=== PATIENT | male | born 1955 | race Caucasian/White ===

== ENCOUNTER → 2021-05-11 01:15 | Outpatient (CLI) | payer MEDICARE, SELFPAY ==
[2021-05-11 20:43] LABS: SARS-CoV-2 RNA PCR Positive
== END ==
PROVIDERS: PCP Internal Medicine; Visit Provider Internal Medicine
DX: U07.1 COVID-19 (principal); R68.89 Other general symptoms and signs
CPT/HCPCS: C9803; U0003; U0005

== ENCOUNTER 2021-08-09 07:32 | Outpatient (CLI) | payer MEDICARE, SELFPAY ==
--- NOTE | ~2021-08-09 | CT_ITS ---
EXAMINATION: CT lung screening EXAM DATE: 08/09/2021 07:47 INDICATION: Z87.891 - Personal history of nicotine dependence. TECHNIQUE: Spiral low dose CT of the chest without contrast. Axial, coronal and sagittal images were reviewed. The dose-length product (DLP) for this examination was 101.49 mGy-cm. The exposure was t ailored according to patient size (auto mA exposure control), and iterative reconstruction (ASIR) was used as additional dose reduction technique. Comparison is made to prior examination from 10/29/2018, 10/14/2016. FINDINGS: Left apical calcified granulomas are unchanged. Tracheobronchial tree is patent. There is no mediastinal, hilar or axillary lymphadenopathy. There is moderate emphysema. There are no pleur al or pericardial effusions. There is no pneumothorax. Heart normal in size. There is moderate coronary arterial calcification, arterial sclerosis. Again there is diffuse esophageal wall thickening as has been demonstrated for years, likely chronic esophagitis. Also left mid rib fracture laterally. IMPRESSION: 1. Lung-RADS category 1S, negative (<1%chance of malignancy); recommend continued LDCT screening in 1 year. 2. Chronic diffuse esophageal wall thickening. Are there any symptoms? Reviewed, dictated and finalized at location B. IMPRESSION: 1. Lung-RADS category 1S, negative (<1%chance of malignancy); recommend contin ued LDCT screening in 1 year. 2. Chronic diffuse esophageal wall thickening. Are there any symptoms?
--- NOTE | ~2021-08-09 | US_ITS ---
EXAMINATION: US aorta [facility] DATE: 08/09/2021 08:03 INDICATION: Abdominal aortic aneurysm screening with risk factors of smoking. Diabetes. TECHNIQUE: Grayscale, color Doppler, and pulsed Doppler images of the aorta and common iliac arteries were obtained. COMPARISON: None. FINDINGS: The proximal aorta measures 2.7 cm. The mid aorta measures 2.2 cm. The distal aorta measures 1.8 cm. The right common iliac artery measures 9 mm. The left common iliac artery measures 9 mm. IMPRESSION: 1. Normal caliber abdominal aorta. Reviewed, dictated and finalized at location A.
== END 2021-08-09 07:33 | disposition home or self-care (01) ==
LOC: ANHIMG 07:35
PROVIDERS: PCP Internal Medicine; Visit Provider Internal Medicine
DX: Z12.2 Encounter for screening for malignant neoplasm of respiratory organs (principal); Z87.891 Personal history of nicotine dependence; Z13.6 Encounter for screening for cardiovascular disorders
CPT/HCPCS: 71271; 76706

== ENCOUNTER 2021-08-21 09:20 | Outpatient (CLI) | payer MEDICARE, SELFPAY ==
--- NOTE | 2021-08-21 09:39 | ECG_ITS ---
Measurements Intervals [place] Rate: 86 P: -35 ME: 170 QRS: 37 QRSD: 82 T: 70 QT: 357 QTc: 429 Interpretive Statements SINUS RHYTHM SEPTAL MYOCARDIAL INFARCTION , PROBABLY OLD Electronically Signed On 08-21-2021 9:58:49 CDT by Cedric Lin M.D.
== END 2021-08-21 09:21 | disposition home or self-care (01) ==
PROVIDERS: PCP Internal Medicine; Visit Provider Internal Medicine
DX: I25.2 Old myocardial infarction (principal); I10 Essential (primary) hypertension
CPT/HCPCS: 93005

== ENCOUNTER 2021-08-22 12:34 | Outpatient (CLI) | payer MEDICARE, SELFPAY ==
--- NOTE | 2021-08-22 15:27 | WPDPFTINT ---
PFT Procedure Performed PFT Procedure Performed Spirometry with Pre/Post Bronchodilator Plethysmography (Lung Vol) Diffusing Cap (DLCO) Flow Vol Loop PFT Interpretation This is a pulmonary function test with pre and post-bronchodilator spirometry, plethysmography and diffusing capacity. The test was performed and results interpreted in accordance with the 2019 and 2005 ATS/ERS Task Force guidelines respectively using the Global Lung Function Initiative-2012 reference equations. Patient demonstrated good effort and cooperation. Reproducibility criteria were met. The quality of the pre bronchodilator spirometry maneuver was Grade A and post bronchodilator spirometry maneuver was Grade A. Findings: Spirometry: There is decreased maximal expiratory airflow at low lung volumes with a concave expiratory flow tracing. The contour the inspiratory flow tracing is normal. The pre bronchodilator FVC is 2.88 L, 68% predicted. The pre bronchodilator FEV1 is 1.84 L, 57% predicted. The pre bronchodilator FEV1: FVC ratio 64%. The post bronchodilator FVC is 3.58 L, representing a 24% increase. The post bronchodilator FEV1 is 2.18 L, representing a 19% increase. The post bronchodilator FEV1: FVC ratio is 61%. Plethysmography: The total lung capacity is 7.76 L, 114% predicted. The functional residual capacity is 5.16 L, 145% predicted. The residual volume is 4.70 L, 204% predicted. Diffusing capacity: The diffusion capacity unadjusted for hemoglobin and carboxyhemoglobin is 17.7, 67% predicted. The diffusing capacity adjusted for alveolar volume is 3.43, 83% predicted. Impression: There is a moderately severe obstructive abnormality with significant improvement after inhaling a single dose of albuterol. The increase in residual volume is consistent with air trapping from an obstructive abnormality. Hyperinflation is present is demonstrated by the increase in functional residual capacity and is consistent with an obstructive abnormality. The diffusing capacity unadjusted for hemoglobin and carboxyhemoglobin is mildly decreased and normalizes when adjusted for alveolar volume. There are no prior studies for comparison
== END 2021-08-22 12:35 | disposition home or self-care (01) ==
LOC: ANHPFT 12:35
PROVIDERS: PCP Internal Medicine; Visit Provider Internal Medicine
DX: J44.9 Chronic obstructive pulmonary disease, unspecified (principal); R94.2 Abnormal results of pulmonary function studies
CPT/HCPCS: 94060; 94726; 94729

== ENCOUNTER 2021-08-30 08:01 | Outpatient (CLI) | payer MEDICARE, SELFPAY ==
--- NOTE | ~2021-08-30 | US_ITS ---
EXAMINATION: US arterial ankle brachial ind DATE: 08/30/2021 09:16 INDICATION: Peripheral vascular disease. TECHNIQUE: Segmental pressures and plethysmographic and Doppler waveforms of the brachial and lower e xtremity arteries were obtained. COMPARISON: None. FINDINGS: Right and left brachial artery pressures of 117 mm Hg and 126 mm Hg, respectively, are concordant (no rmal difference <= 30 mmHg). The right ankle-brachial index (DARREL) is 0.95 (normal >= 0.9-1.0). The right great toe-brachial index (TBI) is 0.60 (normal >= 0.65). Arterial Doppler waveforms are biphasic with brisk systolic upstrokes at both right posterior tibial and dorsalis pedis arteries. The left DARREL is 1.01. The left TBI is 0.79. Arterial Doppler waveforms are biphasic with brisk systol ic upstrokes at both left posterior tibial and dorsalis pedis arteries. IMPRESSION: 1. Mild arterial occlusive disease to the right lower limb with borderline right DARREL and moderately d ecreased right TBI. 2. No significant arterial occlusive disease to the left lower limb with normal left DARREL and TBI. Reviewed, dictated and finalized at location A. IMPRESSION: 1. Mild arterial occlusive disease to the right lower limb with borderline righ t DARREL and moderately decreased right TBI. 2. No significant arterial occlusive disease to the left lower limb with normal left DARREL and TBI.
== END 2021-08-30 08:02 | disposition home or self-care (01) ==
PROVIDERS: PCP Internal Medicine; Visit Provider Internal Medicine
DX: I70.201 Unspecified atherosclerosis of native arteries of extremities, right leg (principal)
CPT/HCPCS: 93922

== ENCOUNTER 2021-09-24 01:34 | Day surgery (SDC) | payer MEDICARE, SELFPAY ==
[2021-08-16 15:44] VITALS: BMI 27.3
--- NOTE | 2021-09-11 13:54 | PC.NURSE ---
Spoke with pt regarding rescheduled EGD & colonoscopy. Updated pt with new date/arrival time/procedure time. Pt verbalized understanding. Updated pt's home medication list. Confirmed no changes to health history. Pt instructed re updated instructions re colon prep. Pt verbalized understanding.
[2021-09-24 10:13] VITALS: BP 118/79; PULSE 95; RESP 17; TEMP 36.6; O2SAT 100; BMI 25.7
--- NOTE | 2021-09-24 10:31 | WPDGICN ---
Assessment and Plan Assessment and plan (1) Achalasia: Code(s): K22.0 - Achalasia of cardia Status: Acute Assessment and Plan: Patient has a history of achalasia. He is status post myotomy in 2019. Currently doing well. Follow-up EGD today. Because of abnormal CT scan. (2) Esophageal thickening: Code(s): K22.89 - Other specified disease of esophagus Status: Acute Assessment and Plan: CT scan suggests thickening of the esophagus. Likely related to prior lower esophageal sphincter myotomy. Further recommendations will be given after evaluation by EGD. (3) Encounter for screening colonoscopy: Code(s): Z12.11 - Encounter for screening for malignant neoplasm of colon Status: Acute Assessment and Plan: Patient presents today for screening colonoscopy. Appears to be at average risk for colon polyps. Further recommendations will be given after colonoscopy. GI Consult Note Consult date/time: 09/24/21 10:31 HPI: Edward Carnes is a 66 year old male Presents for screening colonoscopy And EGD.. Patient's weight appetite and bowel movements are good. He denies abdominal pain. Has had no bleeding. He presents today for neoplasia screening colonoscopy. Patient has a past medical history of achalasia. In 2019 had duodenal ulcers. Was found to have achalasia and has subsequently undergone myotomy by an endoscopic procedure at [facility] in [place]. Currently he is eating well with no vomiting and tolerating diet well. Recent CT scan of the abdomen was performed suggesting thickening of the distal esophagus and for this reason follow-up EGD is advised this time. Patient denies any weight loss, no vomiting. No bleeding. We his history is noncontributory. Review of Systems Review of Systems: All systems reviewed & are unremarkable except as noted in HPI and below [facility] Past Medical History Medical History (Updated 08/21/21 @ 08:43 by Wilfredo Luque MD) Abnormal EKG Achalasia Acute hepatitis C without hepatic coma Anxiety Body mass index [BMI] 28.0-28.9, adult (02/09/19) Chronic obstructive pulmonary disease Colon cancer screening Elevated BP without diagnosis of hypertension Encounter for routine adult health examination without abnormal findings Gastric ulcer, acute with hemorrhage, perforation, and obstruction Gastroesophageal reflux disease without esophagitis Hx of absence seizures Hx of hepatitis C Hypothyroidism (acquired) IFG (impaired fasting glucose) 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 Major depressive disorder, recurrent, unspecified Mixed hyperlipidemia Personal history of nicotine dependence Poor dentition Prostate cancer screening PTSD (post-traumatic stress disorder) Retroperitoneal abscess Rib pain on left side Family History Family History Mother Family history of chronic obstructive pulmonary disease Father Acute myocardial infarction Family history of primary malignant neoplasm of liver Other Family history of cardiovascular disease Social History Social History Smoking status: Former smoker Tobacco type: cigarettes Second hand tobacco smoke exposure: No Smoking end date: 05/12/04 Alcohol intake: never Substance use: current Substance use type: marijuana Other substance usage details: Daily Living arrangements: with family Spiritual care concerns: No Meds Home Medications and Allergies Home Medications Medication Instructions Recorded Confirmed Type aripiprazole 20 mg tablet 20 mg PO DAILY 04/27/19 09/24/21 History gabapentin 300 mg capsule See Rx Instructions PO DAILY 04/27/19 09/24/21 History lorazepam 2 mg tablet 2 mg PO BID PRN 04/27/19 09/24/21 History multivitamin 1 tablet PO DAILY 04/27/19 09/24/21 History nortriptyline 25 mg capsule 75 mg PO DAILY 04/27/19 09/24/21 History omeprazole 40 m
[2021-09-24] MEDS: LACTATED RINGERS 1,000 ML 150 ML IV CONT (10:36)
--- NOTE | 2021-09-24 10:49 | WPDANESEPPF ---
Anes - Initial Pre Proc Eval Procedure: Operation Date: 09/24/21 11:00 Proposed Procedures p Esophagogastroduodenoscopy & Screening Colonoscopy - Reddy Katz MD Date/Time: 09/24/21 10:49 Surgeon: Reddy Katz MD Pre Op Diagnosis: neoplasm screening, abnormal CAT scan Patient Data Age: 66 Gender: M Height: 1.75 m Weight: 79.2 kg Last Vital Signs Temp 97.8 F 09/24/21 10:13 Pulse 95 09/24/21 10:13 Resp 17 09/24/21 10:13 BP 118/79 09/24/21 10:13 Pulse Ox 100 09/24/21 10:13 Allergies Allergy/AdvReac Type Severity Reaction Status Date / Time No Known Allergies Allergy Verified 09/24/21 10:11 Home Medications Medication Instructions Recorded Confirmed Type aripiprazole 20 mg tablet 20 mg PO DAILY 04/27/19 09/24/21 History gabapentin 300 mg capsule See Rx Instructions PO DAILY 04/27/19 09/24/21 History lorazepam 2 mg tablet 2 mg PO BID PRN 04/27/19 09/24/21 History multivitamin 1 tablet PO DAILY 04/27/19 09/24/21 History nortriptyline 25 mg capsule 75 mg PO DAILY 04/27/19 09/24/21 History omeprazole 40 mg capsule,delayed 40 mg PO DAILY #90 cap 08/21/21 09/24/21 Rx release rosuvastatin 5 mg tablet 5 mg PO DAILY #30 tablet 08/21/21 09/24/21 Rx Patient hx anesthesia problems: none Family hx anesthesia problems: none Results Review: All pre-operative results and documents have been reviewed as part of the pre-operative evaluation. [facility] Past Medical History Medical History (Updated 08/21/21 @ 08:43 by Wilfredo Luque MD) Abnormal EKG Achalasia Acute hepatitis C without hepatic coma Anxiety Body mass index [BMI] 28.0-28.9, adult (02/09/19) Chronic obstructive pulmonary disease Colon cancer screening Elevated BP without diagnosis of hypertension Encounter for routine adult health examination without abnormal findings Gastric ulcer, acute with hemorrhage, perforation, and obstruction Gastroesophageal reflux disease without esophagitis Hx of absence seizures Hx of hepatitis C Hypothyroidism (acquired) IFG (impaired fasting glucose) longterm use of drug Major depressive disorder, recurrent, unspecified Mixed hyperlipidemia Personal history of nicotine dependence Poor dentition Prostate cancer screening PTSD (post-traumatic stress disorder) Retroperitoneal abscess Rib pain on left side Family History Family History Mother Family history of chronic obstructive pulmonary disease Father Acute myocardial infarction Family history of primary malignant neoplasm of liver Other Family history of cardiovascular disease Social History Social History Smoking status: Former smoker Tobacco type: cigarettes Second hand tobacco smoke exposure: No Smoking end date: 05/12/04 Alcohol intake: never Substance use: current Substance use type: marijuana Other substance usage details: Daily Living arrangements: with family Spiritual care concerns: No Anes - Eval Final PreProcedure Day of Procedure 09/24/21 10:49 Patient weight: normal Heart: regular rate and rhythm Lungs: clear to auscultation Airway: Mallampati scale class II Neurological: alert and oriented Last oral intake: >/= 8 hours ASA classification: III Emergent: no Anesthetic plan: proceed Anesthesia type and monitoring: general GIVS and standard monitoring Results Review: All pre-operative results and documents have been reviewed as part of the pre-operative evaluation. Informed Consent: The patient's anesthetic plan and its attendant risks and benefits were discussed with the patient/family/POA. Questions were solicited and answers provided to the satisfaction of the patient/family/POA.
[2021-09-24 11:37] VITALS: BP 82/53; PULSE 94; RESP 28; O2SAT 92
[2021-09-24 11:47] VITALS: BP 118/75; PULSE 87; RESP 19; O2SAT 94
[2021-09-24 11:57] VITALS: BP 115/87; PULSE 86; RESP 20; O2SAT 97
== END 2021-09-24 12:08 | disposition home or self-care (01) ==
PROVIDERS: PCP Internal Medicine; Visit Provider Internal Medicine Gastroenterology
PROC: 0DJ08ZZ Inspection of Upper Intestinal Tract, Via Natural or Artificial Opening Endoscopic (ICD-10-PCS; CPT 43235; principal; 2021-09-24 11:00)
DX: Z12.11 Encounter for screening for malignant neoplasm of colon (principal); D12.4 Benign neoplasm of descending colon; K64.8 Other hemorrhoids; K57.30 Diverticulosis of large intestine without perforation or abscess without bleeding; K21.00 Gastro-esophageal reflux disease with esophagitis, without bleeding; Z87.19 Personal history of other diseases of the digestive system; E03.9 Hypothyroidism, unspecified; E78.2 Mixed hyperlipidemia; F33.9 Major depressive disorder, recurrent, unspecified; F41.9 Anxiety disorder, unspecified; Z86.19 Personal history of other infectious and parasitic diseases; Z87.11 Personal history of peptic ulcer disease; Z87.891 Personal history of nicotine dependence; F12.90 Cannabis use, unspecified, uncomplicated
CPT/HCPCS: 45385; 43235; 88305; J2704; J7120

== ENCOUNTER 2022-03-13 07:43 | Outpatient (CLI) | payer MEDICARE, SELFPAY ==
[2022-03-13 08:25] LABS: Alanine Aminotransferase 23 U/L (6-50); Albumin Level 4.8 g/dL (3.5-5.1); Alkaline Phosphatase 62 U/L (38-126); Anion Gap 11 mmol/L (8-16); Aspartate Amino Transferase 30 U/L (17-59); Bilirubin,Total 0.8 mg/dL (0.2-1.3); Blood Urea Nitrogen 9 mg/dL (9-20); Calcium 9.2 mg/dL (8.4-10.2); Carbon Dioxide 30 mmol/L (22-30); Chloride 99 mmol/L (98-107); Cholesterol 150 mg/dL (0-200); Estimated Glomerular Filt Rate > 60; Glucose 113 mg/dL (65-110); HDL Direct 34 mg/dL; Hemoglobin A1C 6.3 % (<5.7); Sodium 140 mmol/L (137-145); Triglycerides 154 mg/dL (<150)
[2022-03-13 08:36] LABS: LDL Cholesterol Direct 93 mg/dL
[2022-03-13 08:57] LABS: Prostate Specific Antigen 0.8 ng/mL (< OR = 4.0)
== END 2022-03-13 07:44 | disposition home or self-care (01) ==
LOC: ANHLAB 07:47
PROVIDERS: PCP Internal Medicine; Visit Provider Nurse Practitioner
DX: R73.03 Prediabetes (principal); Z12.5 Encounter for screening for malignant neoplasm of prostate; E78.5 Hyperlipidemia, unspecified
CPT/HCPCS: 36415; 80053; 80061; 83036; 84153; G0103

== ENCOUNTER 2022-09-05 10:00 | Outpatient (CLI) | payer MEDICARE, SELFPAY ==
--- NOTE | ~2022-09-05 | XR_ITS ---
Right Knee Technique: AP, lateral, and sunrise views were obtained. Clinical History: Pain Findings: No fracture or dislocation is seen. Osseous alignment is anatomic. Minimal patellar spurrin g noted. Soft tissues are unremarkable. No joint effusion is seen. Impression: Minimal patellar spurring. Reviewed, dictated and finalized at location . Impression: Minimal patellar spurring.
[2022-09-05 10:53] LABS: Alanine Aminotransferase 27 U/L (6-50); Alkaline Phosphatase 66 U/L (38-126); Anion Gap 5 mmol/L (8-16); Aspartate Amino Transferase 32 U/L (17-59); Bilirubin,Total 0.8 mg/dL (0.2-1.3); Blood Urea Nitrogen 10 mg/dL (9-20); Carbon Dioxide 31 mmol/L (22-30); Chloride 101 mmol/L (98-107); Cholesterol 147 mg/dL (0-200); Estimated Glomerular Filt Rate > 60; Glucose 103 mg/dL (65-110); HDL Direct 38 mg/dL; Potassium 4.6 mmol/L (3.4-5.0); Sodium 137 mmol/L (137-145); Triglycerides 199 mg/dL (<150)
[2022-09-05 11:03] LABS: LDL Cholesterol Direct 91 mg/dL
[2022-09-05 11:18] LABS: Hemoglobin A1C 5.9 % (<5.7)
== END 2022-09-05 10:01 | disposition home or self-care (01) ==
LOC: ANHLAB 10:04
PROVIDERS: PCP Family Medicine; Visit Provider Nurse Practitioner
DX: E78.5 Hyperlipidemia, unspecified (principal); R73.03 Prediabetes; M25.561 Pain in right knee; M76.51 Patellar tendinitis, right knee
CPT/HCPCS: 36415; 73562; 80053; 80061; 83036

== ENCOUNTER 2023-02-26 07:36 | Outpatient (CLI) | payer MEDICARE, SELFPAY ==
[2023-02-26 08:38] LABS: Hematocrit 49.1 % (42.0-52.0); Hemoglobin 15.4 g/dL (14.0-18.0); Mean Corpuscular HGB Conc 31.4 g/dl (32-36); Mean Corpuscular Hemoglobin 27.5 pg (26-34); Mean Corpuscular Volume 87.8 fl (80-100); Platelet Count Result 300 k/mm3 (150-375); Red Blood Count 5.59 M/mm3 (4.6-6.20); Red Cell Distribution Width 13.6 % (11.5-14.5); White Blood Count 9.1 K/mm3 (4.5-10.0)
[2023-02-26 08:42] LABS: Creatinine Urine 18.9 mg/dL
[2023-02-26 08:47] LABS: MALB Creatinine Ratio 83.1 mg/g (0-30); Microalbumin Urine Random 15.7 mg/L (0-16.7)
[2023-02-26 08:49] LABS: Alanine Aminotransferase 38 U/L (6-50); Albumin Level 5.1 g/dL (3.5-5.1); Alkaline Phosphatase 54 U/L (38-126); Anion Gap 8 mmol/L (8-16); Aspartate Amino Transferase 38 U/L (17-59); Bilirubin,Total 0.9 mg/dL (0.2-1.3); Blood Urea Nitrogen 10 mg/dL (9-20); Calcium 9.8 mg/dL (8.4-10.2); Carbon Dioxide 31 mmol/L (22-30); Chloride 100 mmol/L (98-107); Estimated Glomerular Filt Rate > 60; Glucose 111 mg/dL (65-110); Potassium 5.2 mmol/L (3.4-5.0); Sodium 139 mmol/L (137-145)
[2023-02-26 08:50] LABS: Hemoglobin A1C 5.9 % (<5.7)
== END 2023-02-26 07:37 | disposition home or self-care (01) ==
LOC: ANHLAB 07:37
PROVIDERS: PCP Family Medicine; Visit Provider Family Medicine
DX: E11.9 Type 2 diabetes mellitus without complications (principal); F43.10 Post-traumatic stress disorder, unspecified; I73.9 Peripheral vascular disease, unspecified; J44.9 Chronic obstructive pulmonary disease, unspecified
CPT/HCPCS: 36415; 80053; 82043; 83036; 85027

== ENCOUNTER 2023-03-04 09:32 | Outpatient (CLI) | payer MEDICARE, SELFPAY ==
--- NOTE | ~2023-03-04 | CT_ITS ---
CT Scan of the Chest without Contrast: Clinical Indication: Lung cancer screening, personal history of nicotine dependence Technique: Contiguous sections were acquired throughout the chest without intravenous contrast. Dose reduction technique was used on this scan by utilizing automated exposure control and iterative recon struction technique. The dose-length product (DLP) was 135.87 mGy-cm. COMPARISON: 08/09/2021 Findings: There is no evidence of any significant mediastinal, hilar or axillary lymphadenopathy. There are ath erosclerotic calcifications of the aorta and coronary arteries. Diffuse esophageal wall thickening is similar to prior exam. There is no evidence of pleural or pericardial effusion. Left apical calcified bilateral granulomas are noted. Mild to moderate emphysema probably present. Images through the upper abdomen reveal no abnormalities. Impression: Unenhanced 2: Benign appearance. 12 month follow-up screen CT advised. Diffuse esophageal wall thickening is similar to prior exam. Correlate for chronic esophagitis. Reviewed, dictated and finalized at [facility]. Impression: Unenhanced 2: Benign appearance. 12 month follow-up screen CT advised. Diffuse esophageal wall thickening is similar to prior exam. Correlate for surg nurse johana esophagitis.
== END 2023-03-04 09:33 | disposition home or self-care (01) ==
PROVIDERS: PCP Family Medicine; Visit Provider Family Medicine
DX: Z12.2 Encounter for screening for malignant neoplasm of respiratory organs (principal); R91.8 Other nonspecific abnormal finding of lung field; Z87.891 Personal history of nicotine dependence
CPT/HCPCS: 71271

== ENCOUNTER 2023-09-04 10:06 | Outpatient (CLI) | payer MEDICARE, SELFPAY ==
--- NOTE | ~2023-09-04 | XR_ITS ---
XR chest 2V 09/04/2023 11:19 Indication: Dyspnea Procedure: 2 view chest Comparison: 02/08/2016 Findings: Heart size normal. Mild interstitial edema. No pleural effusion or pneumothorax. No acute o sseous abnormality. Impression: 1: Mild interstitial edema. Reviewed, dictated and finalized at location B. Impression: 1: Mild interstitial edema.
--- NOTE | 2023-09-04 10:33 | ECG_ITS ---
SEE SCANNED COPY FOR CONFIRMED REPORT MTDD
[2023-09-04 10:41] LABS: Hematocrit 41.2 % (42.0-52.0); Hemoglobin 12.9 g/dL (14.0-18.0); Mean Corpuscular HGB Conc 31.3 g/dl (32-36); Mean Corpuscular Volume 89.6 fl (80-100); Mean Platelet Volume 9.8 fl (7.4-10.4); Platelet Count Result 260 k/mm3 (150-375); Red Cell Distribution Width 14.5 % (11.5-14.5); White Blood Count 8.2 K/mm3 (4.5-10.0)
[2023-09-04 10:58] LABS: Alanine Aminotransferase 26 U/L (6-50); Alkaline Phosphatase 60 U/L (38-126); Anion Gap 7 mmol/L (4-12); Aspartate Amino Transferase 32 U/L (17-59); Bilirubin,Total 1.3 mg/dL (0.2-1.3); Blood Urea Nitrogen 13 mg/dL (9-20); Calcium 9.7 mg/dL (8.4-10.2); Carbon Dioxide 30 mmol/L (22-30); Chloride 104 mmol/L (98-107); Cholesterol 134 mg/dL (0-200); Estimated Glomerular Filt Rate > 60; Glucose 128 mg/dL (65-110); HDL Direct 35 mg/dL; Potassium 4.6 mmol/L (3.4-5.0); Sodium 141 mmol/L (137-145); Triglycerides 183 mg/dL (<150)
[2023-09-04 11:09] LABS: LDL Cholesterol Direct 88 mg/dL
[2023-09-04 11:29] LABS: Prostate Specific Antigen 0.6 ng/mL (< OR = 4.0)
[2023-09-04 11:31] LABS: Hemoglobin A1C 5.7 % (<5.7)
== END 2023-09-04 10:07 | disposition home or self-care (01) ==
LOC: ANHLAB 10:13
PROVIDERS: PCP Family Medicine; Visit Provider Family Medicine
DX: R06.00 Dyspnea, unspecified (principal); Z12.5 Encounter for screening for malignant neoplasm of prostate; K22.89 Other specified disease of esophagus; J44.9 Chronic obstructive pulmonary disease, unspecified; F43.10 Post-traumatic stress disorder, unspecified; E78.2 Mixed hyperlipidemia; E66.3 Overweight; E11.9 Type 2 diabetes mellitus without complications; R00.9 Unspecified abnormalities of heart beat; R60.9 Edema, unspecified; R00.0 Tachycardia, unspecified; R94.31 Abnormal electrocardiogram [ECG] [EKG]
CPT/HCPCS: 36415; 71046; 80053; 80061; 83036; 84153; 84443; 85027; 93005; G0103

== ENCOUNTER 2023-09-18 08:49 | Outpatient (CLI) | payer MEDICARE, SELFPAY ==
--- NOTE | ~2023-09-18 | XR_ITS ---
Clinical Indication: Edema PA and lateral views of the chest: Comparison: 09/04/2023 Findings: The lungs are clear, without evidence of focal consolidation or pleural effusion. Cardiome diastinal silhouette is within normal limits. Bones and soft tissues are unremarkable. Impression: Normal chest. Reviewed, dictated and finalized at location . Impression: Normal chest.
[2023-09-18 09:39] LABS: Mean Corpuscular Volume 90.5 fl (80-100); Mean Platelet Volume 10.2 fl (7.4-10.4); Platelet Count Result 256 k/mm3 (150-375); Red Blood Count 4.64 M/mm3 (4.6-6.20); Red Cell Distribution Width 14.4 % (11.5-14.5); White Blood Count 9.2 K/mm3 (4.5-10.0)
[2023-09-18 09:53] LABS: Iron 44 ug/dL (49-181)
[2023-09-18 09:57] LABS: NT Pro B Type Natriuretic Pept 3990 pg/mL (19.9-100)
[2023-09-18 10:05] LABS: Percent Iron Saturation 10 % (20-50)
== END 2023-09-18 08:50 | disposition home or self-care (01) ==
LOC: ANHLAB 08:51
PROVIDERS: PCP Family Medicine; Visit Provider Family Medicine
DX: R06.00 Dyspnea, unspecified (principal); J44.9 Chronic obstructive pulmonary disease, unspecified; D64.9 Anemia, unspecified; R60.9 Edema, unspecified; E11.9 Type 2 diabetes mellitus without complications
CPT/HCPCS: 36415; 71046; 82607; 82728; 83540; 83550; 83880; 85027

== ENCOUNTER 2023-10-07 13:04 | Inpatient (IN) | payer MEDICARE, SELFPAY ==
[2023-10-07] VITALS (11 sets, daily range): BP systolic 110–133; BP diastolic 75–93; PULSE 106–155; RESP 17–24; TEMP 36.5; O2SAT 84–98; BMI 30.8
--- NOTE | ~2023-10-07 | US_ITS ---
EXAMINATION: US venous doppler [facility] DATE: 10/09/2023 14:47 INDICATION: Lower limb edema. TECHNIQUE: Grayscale ultrasound images without and with compression and Doppler ultrasound images of the bilateral lower extremity veins were obtained. COMPARISON: None. FINDINGS: The visualized portions of right common femoral vein, profunda (deep) femoral vein, femoral vein, pop liteal vein, peroneal veins, posterior tibial veins, and greater saphenous vein outflow are patent. The visualized portions of left common femoral vein, profunda femoral vein, femoral vein, popliteal v ein, peroneal veins, posterior tibial veins, and greater saphenous vein outflow are patent. IMPRESSION: 1. No deep venous thrombosis. Reviewed, dictated and finalized at location A.
--- NOTE | ~2023-10-07 | US_ITS ---
EXAMINATION: US abdomen limited DATE: 10/08/2023 08:39 INDICATION: Abnormal liver function tests. TECHNIQUE: Multiple grayscale and Doppler ultrasound images of the abdomen were obtained. COMPARISON: CT abdomen and pelvis 04/25/2016 FINDINGS: The visualized portions of the head, body, and tail of the pancreas are normal. The liver i s normal without focal lesion. No liver surface nodularity. There is antegrade flow in main portal ve in. The gallbladder is normal in size. No gallstones or gallbladder wall thickening. There is no sono graphic Rodriguez's sign. The common duct is normal and measures 4 mm. IMPRESSION: 1. No etiology for abnormal liver function tests. Reviewed, dictated and finalized at location A.
--- NOTE | ~2023-10-07 | NM_ITS ---
EXAMINATION: NM lung vent and perfusion DATE: 10/09/2023 15:34 INDICATION: Dyspnea. TECHNIQUE: 6.9 mCi Xenon-133 was given for ventilation images. 5.2 mCi Tc-99m MAA was administered in travenously for perfusion images. Scintigraphic images of the chest were obtained. COMPARISON: Chest single view 10/07/2023 FINDINGS: The ventilation images demonstrate low [id number] ratio. There is diffuse retention of radiotrac er in the lungs. Perfusion images show matched large defects in the lower lobes. IMPRESSION: 1. Low probability for pulmonary embolism. Reviewed, dictated and finalized at location A.
--- NOTE | ~2023-10-07 | XR_ITS ---
XR chest 1V portable 10/07/2023 13:47 Indication: Dyspnea and weakness Procedure: AP portable chest Comparison: Comparison to multiple prior studies sequentially, with oldest reviewed study dated 02/07. Findings: Cardiomegaly with mild interstitial edema. No pleural effusion or pneumothorax. No acute os seous abnormality. Impression: 1: Cardiomegaly with mild interstitial edema. Reviewed, dictated and finalized at location B. Impression: 1: Cardiomegaly with mild interstitial edema.
--- NOTE | ~2023-10-07 | CT_ITS ---
EXAMINATION: CT brain wo con DATE: 10/07/2023 14:03 INDICATION: Head injury. TECHNIQUE: Computed tomography (CT) of the head was performed without intravenous contrast. The mA wa s adjusted according to patient size. Iterative reconstruction technique was employed. The dose-lengt h product was 605.33 mGy-cm. COMPARISON: None FINDINGS: There is chronic encephalomalacia in right frontal and temporal lobes. There are scattered areas of low attenuation in the cerebral white matter. There is no intracranial hemorrhage, acute inf arction, or abnormal intracranial mass lesion. The ventricles are normal in size. The orbits are norm al. There is mild mucosal thickening in the ethmoid sinuses. The mastoid air cells are normal. There is left posterior scalp soft tissue swelling. IMPRESSION: 1. Chronic encephalomalacia in right frontal and temporal lobes. 2. Mild nonspecific cerebral white matter disease, which likely represents chronic small vessel ische joseph disease. Reviewed, dictated and finalized at location A. IMPRESSION: 1. Chronic encephalomalacia in right frontal and temporal lobes. 2. Mild nonspecific cerebral white matter disease, which likely represents systems lead johana small vessel ischemic disease.
--- NOTE | ~2023-10-07 | CT_ITS ---
EXAMINATION: CT facial bones wo con DATE: 10/07/2023 14:03 INDICATION: Left jaw pain. Fall. TECHNIQUE: Computed tomography (CT) of the facial bones and maxillofacial region was performed withou t intravenous contrast. Automated exposure control and iterative reconstruction technique were employ ed. The dose-length product was 605.33 mGy-cm. COMPARISON: None. FINDINGS: There is mild mucosal thickening in the paranasal sinuses. There is rightward deviation of the nasal septum. The mastoid air cells are normal. There is cerumen in right external auditory canal . There is severe cervical spondylosis. IMPRESSION: 1. No fracture. Reviewed, dictated and finalized at location A. IMPRESSION: 1. No fracture.
--- NOTE | ~2023-10-07 | NM_ITS ---
EXAMINATION: NM angel stress w perfusion DATE: 10/08/2023 13:00 INDICATION: Dyspnea on exertion. TECHNIQUE: Rest images were obtained following intravenous administration of 10.8 mCi Tc99m tetrofosm in (Myoview). The patient was infused intravenously with Lexiscan (regadenoson). Then, 34.8 mCi Tc99m tetrofosmin (Myoview) was administered intravenously, and supine and prone stress images were obtain ed. Data was reconstructed into short axis and horizontal and vertical long axis SPECT images. Gated SPECT images were also obtained. COMPARISON: Chest CT 03/04/2023 FINDINGS: There is a small, mild, fixed perfusion defect involving apical to mid inferior wall of lef t ventricle, consistent with infarct. No reversible component to suggest ischemia.. There is global hypokinesis.. Left ventricular ejection fraction measures 27%. IMPRESSION: 1. Small area of mild infarct involving apical to mid inferior wall of left ventricle. 2. Global hypokinesis with left ventricular ejection fraction measuring 27%. Reviewed, dictated and finalized at location A. IMPRESSION: 1. Small area of mild infarct involving apical to mid inferior wall of left micky tricle. 2. Global hypokinesis with left ventricular ejection fraction measuring 27%.
--- NOTE | 2023-10-07 13:24 | ECG_ITS ---
SEE SCANNED COPY FOR CONFIRMED REPORT MTDD
[2023-10-07 13:40] LABS: Basophils Absolute Auto 0.1 K/mm3 (0.0-0.1); Basophils Percent Auto 0.5 % (0.2-1.2); Eosinophils Absolute Auto 0.1 K/mm3 (0-0.3); Eosinophils Percent Auto 1.1 % (0-4.4); Hematocrit 41.1 % (42.0-52.0); Hemoglobin 12.5 g/dL (14.0-18.0); Immature Granulocyte Absolute 0.03 K/mm3 (0.00-0.031); Immature Granulocyte Percent A 0.3 % (0-0.5); Lymphocytes Absolute Auto 1.41 K/mm3 (0.9-3.2); Lymphocytes Percent Auto 13.6 % (18.3-44.2); Mean Corpuscular HGB Conc 30.4 g/dl (32-36); Mean Corpuscular Hemoglobin 26.7 pg (26-34); Mean Corpuscular Volume 87.6 fl (80-100); Mean Platelet Volume 9.2 fl (7.4-10.4); Monocytes Absolute Auto 1.3 K/mm3 (0.1-0.6); Neutrophils Absolute Auto 7.6 K/mm3 (1.3-6.7); Neutrophils Percent Auto 72.5 % (45.5-73.1); Nucleated Red Blood Cells Perc 0.4 % (0.0-0.2); Platelet Count Result 238 k/mm3 (150-375); Red Blood Count 4.69 M/mm3 (4.6-6.20); Red Cell Distribution Width 14.8 % (11.5-14.5); White Blood Count 10.4 K/mm3 (4.5-10.0)
--- NOTE | 2023-10-07 13:46 | ED.GENADULT ---
HPI - General Adult General Chief complaint: Shortness of Breath/Dyspnea Stated complaint: fall, low o2 from pcp Time Seen by Provider: 10/07/23 13:22 History of Present Illness HPI narrative: 68-year-old male presented to the emergency department for evaluation for a facial injury. Patient was going to see his primary care physician for some shortness of breath while walking out of his house he fell and injured his left jaw. Patient denies any other pain or injury. Patient denies last of consciousness. Patient does follow-up with dr acuña. patient states he is not supposed to be on a water pill. Related Data Home Medications Medication Instructions Recorded Confirmed lorazepam 2 mg tablet 2 mg PO BID PRN Anxiety 04/27/19 10/07/23 multivitamin 1 tablet PO DAILY 04/27/19 10/07/23 nortriptyline 25 mg capsule 75 mg PO DAILY 04/27/19 10/07/23 diclofenac sodium 75 mg 75 mg PO BID 10/07/23 10/07/23 tablet,delayed release Allergies Allergy/AdvReac Type Severity Reaction Status Date / Time No Known Allergies Allergy Verified 10/07/23 12:28 Review of Systems Review of Systems: All systems reviewed & are unremarkable except as noted in HPI and below PMF[facility] Past Medical History Medical History (Updated 10/07/23 @ 16:42 by Luis Osman MD) Abnormal EKG Achalasia Acute hepatitis C without hepatic coma Anxiety Body mass index [BMI] 28.0-28.9, adult (02/09/19) Chronic obstructive pulmonary disease Colon cancer screening Dyspnea Elevated BP without diagnosis of hypertension Encounter for routine adult health examination without abnormal findings Gastric ulcer, acute with hemorrhage, perforation, and obstruction Gastroesophageal reflux disease without esophagitis Hx of absence seizures Hx of hepatitis C Hypothyroidism (acquired) IFG (impaired fasting glucose) 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 Major depressive disorder, recurrent, unspecified Mixed hyperlipidemia Personal history of nicotine dependence Poor dentition Prostate cancer screening PTSD (post-traumatic stress disorder) Retroperitoneal abscess Rib pain on left side Family History Family History Mother Family history of chronic obstructive pulmonary disease Father Acute myocardial infarction Family history of primary malignant neoplasm of liver Other Family history of cardiovascular disease Social History Social History Smoking packs per day: 3 Smoking cigarettes per day: 60.0 Smoking status: Former smoker Second hand tobacco smoke exposure: No Additional smoking assessment comments: smokes marijuana Alcohol intake: former Substance use: current Substance use type: marijuana Other substance usage details: Daily Last use: 10/05/23 Do You Feel Safe in your Home?: Yes Lack of Transportation: YES Lack of Food: Never True Current Housing: I Have Housing Concerned About Future Housing: No Difficulty Paying Gas/Electric Bills: No Difficulty Paying for Meds: No Currently Unemployed: No Education: High School Diploma/GED Difficulty w/ Childcare or Family Care: No Living arrangements: with family Spiritual care concerns: No Exam Narrative: APPEARANCE: Well appearing, no pain, no distress, well-nourished. HEAD: normocephalic, Injury to left mandible EYES: PERRLA/EOMI, conjunctivae clear. NOSE: Normal no drainage EARS:TMS clear with good light reflex. THROAT: Pharynx clear, no exudate. NECK: Supple. No adenopathy, no masses. RESPIRATORY: Airway patent, respirations nonlabored. Clear to auscultation bilaterally, no rales, rhonchi, wheezing. CARDIOVASCULAR: Regular rate and rhythm without murmurs rubs or gallops. ABDOMINAL: Soft, nontender, nondistended, normal bowel sounds MUSCULOSKELETAL: Moves all extremities. Strength/ROM intact, No edema, No calf tenderness. NEURO: Alert. Cranial nerves II through
[2023-10-07 13:52] LABS: Alanine Aminotransferase 703 U/L (6-50); Albumin Level 4.4 g/dL (3.5-5.1); Alkaline Phosphatase 111 U/L (38-126); Anion Gap 8 mmol/L (4-12); Aspartate Amino Transferase 360 U/L (17-59); Bilirubin,Total 1.9 mg/dL (0.2-1.3); Blood Urea Nitrogen 32 mg/dL (9-20); Calcium 8.4 mg/dL (8.4-10.2); Carbon Dioxide 25 mmol/L (22-30); Chloride 104 mmol/L (98-107); Estimated CRCL calculation 66 ml/min; Estimated Glomerular Filt Rate > 60; Glucose 120 mg/dL (65-110); Potassium 4.3 mmol/L (3.4-5.0); Sodium 137 mmol/L (137-145)
[2023-10-07 14:01] LABS: NT Pro B Type Natriuretic Pept 5140 pg/mL (19.9-100); Troponin I < 0.012 ng/mL (0.000-0.034)
[2023-10-07 14:16] LABS: Influenza A QL RT-PCR Negative (Negative); Influenza B QL RT-PCR Negative (Negative); RSV RNA, RT-PCR Negative (Negative); SARS-CoV-2 RNA PCR Negative (Negative)
[2023-10-07] MEDS: FUROSEMIDE INJ 40 MG/4 ML VIAL IV PUSH ×2 (14:45→20:24)
--- NOTE | 2023-10-07 17:45 | ADMGEN ---
This patient, Edward Carnes, was admitted to [facility] Surg Room 319-01. Patient/family oriented to hospital policies and general routines including ID bracelet, bed and alarms, visiting hours, pain management, procedures, bathroom and other care routines, personal items, smoking policy, room service/diet, and visiting hours. Information on how to activate the Rapid Response Team has been discussed. Patient/Family are encouraged to report perceived risks to care and to ask questions if they do not understand what they are told or what they should do.
[2023-10-07 17:47] LABS: INR 1.4; Prothrombin Time 17.6 Seconds (11.1-14.7)
[2023-10-07 17:48] LABS: Partial Thromboplastin Time 40.9 Seconds (22.3-36.8)
--- NOTE | 2023-10-07 19:25 | PM.IMHP ---
H&P: HPI History of Present Illness Date/Time: 10/07/23 18:15 Chief Complaint: Fall, shortness of breath. Narrative: This is a 68-year-old male with history of hepatitis-C which was treated many years ago, gastroesophageal reflux disease, duodenal ulcer, achalasia, anemia, seizures, bipolar disorder, anxiety, and posttraumatic stress disorder who presented to the emergency department for evaluation of shortness of breath and a fall. The patient provides the following history. He gives a nearly 1 month history of progressive dyspnea on lesser and lesser exertion. He does not think it is related to his COPD as he has not been coughing or wheezing. At times he has some tightness in his chest when he is feeling particularly short of breath though he has not had exertional chest pain per se. On occasion he feels lightheaded with position changes. He was evaluated by his doctor several weeks ago for these findings and was referred to Dr. Thomas who ordered an echocardiogram and nuclear stress test which have yet to be performed. Today he had a follow-up appointment with his doctor at which time he was found to be hypoxic and was referred to the ER. On his way out of the office he tripped and fell on the left side of his face. There is no loss of consciousness in the fall and he reports that it was purely mechanical. In the ED complained of pain in the left jaw from the fall but had no other complaints. He denies syncope, near syncope, cold and flu symptoms, productive cough, orthopnea, paroxysmal nocturnal dyspnea, lower extremity edema, calf pain, palpitations, sensations of racing heart, nausea, vomiting, and sweats. In the ED: He was afebrile on arrival. SpO2 has been in the upper 90s on 3 L. he is in a sinus tachycardia. Labs were significant for a WBC count of 10.4, hemoglobin 12.5, BUN 32, creatinine 1.10, magnesium 2.2, total bilirubin 1.9, AST 360, ALT 703, alkaline phosphatase 111, proBNP 5140, troponin less than 0.012. He tested negative for influenza, RSV, and COVID. Brain CT showed chronic encephalomalacia in the right frontal and temporal lobes and nonspecific cerebral white matter disease but no other acute findings. Face CT did not show any signs of fracture. Chest x-ray showed cardiomegaly with mild interstitial edema. He was given 40 mg IV Lasix and is being admitted in this setting for further workup. Review of Systems Review of Systems: 12 systems were reviewed and are negative except for as per HPI. [facility] Past Medical History Medical History (Updated 10/07/23 @ 22:47 by Leticia Moscoso PA-C) Achalasia Anxiety Bipolar disorder Chronic obstructive pulmonary disease Gastric ulcer Gastroesophageal reflux disease without esophagitis Hepatitis C Status post Harvoni. Hypothyroidism Mixed hyperlipidemia Posttraumatic stress disorder Surgical History Surgical History (Updated 10/07/23 @ 22:36 by Leticia Moscoso PA-C) History of exploratory laparotomy (12/2015) With over-sewing of perforated duodenal ulcer complicated by a retroperitoneal abscess requiring washout and drainage. Family History Family History Mother Family history of chronic obstructive pulmonary disease Father Acute myocardial infarction Family history of primary malignant neoplasm of liver Other Family history of cardiovascular disease Social History Social History (Updated 10/07/23 @ 22:37 by Leticia Moscoso PA-C) Social History: Surrogate medical decision maker: Sylwia Deyvi, spouse. Code status: Full code. Smoking packs per day: 3 Smoking cigarettes per day: 60.0 Years smoked: 45 Smoking pack-years: 135.00 Smoking status: Former smoker Second hand tobacco smoke exposure: No Alcohol intake: former Substance use: current Substance use type: marijuana Other substance usage details: Daily Last use: 10/05/23 Do You Feel Safe in your Home?: Yes Lack of Trans
[2023-10-07] MEDS: IPRATROPIUM 0.5 MG/ALBUTEROL SULFATE 2.5 MG AMPUL.NEB 3 ML INHALATION (20:07)
--- NOTE | 2023-10-07 20:42 | ECG_ITS ---
SEE SCANNED COPY FOR CONFIRMED REPORT MTDD
[2023-10-07 20:55] LABS: Hepatitis B Surface Antigen Negative (Negative)
[2023-10-07 20:56] LABS: Magnesium 2.2 mg/dL (1.6-2.3)
[2023-10-07 21:00] LABS: HAV RESULT Negative (Negative); Hepatitis B Core IgM Result Negative (Negative)
[2023-10-07 21:13] LABS: Hepatitis C Virus Antibody Reactive (Negative)
[2023-10-07] MEDS: GABAPENTIN 300 MG CAPSULE 600 MG PO (22:30)
[2023-10-08] VITALS (16 sets, daily range): BP systolic 99–112; BP diastolic 68–80; PULSE 103–114; RESP 18–24; TEMP 36.1–37.6; O2SAT 91–98
--- NOTE | 2023-10-08 00:40 | P.PNCROSS_ITS ---
Event Note Event Note Event Note: Nursing staff can to notify me that the patient had yet another episode of nons ustained V-tach. When I looked at the patient's vitals the patient had pulse ox recorded at 84%. Patient that he runs between 84 and 92% at home. I think that the patient's hypoxia may be contributing to the frequency of his nonsustained V-tach. When nursing staff went to check on him while he was asleep his oxygen saturation was initially 72%. But the patient's oxygen saturation improved up to 90% when he was woken up. I have requested the patient be placed on a continuous pulse ox so he can see if there is a correlation between the timing of the patient's evidence of hypoxia and the patient's episodes of nonsustained V-tach. The patient probably going to need supplemental oxygen while sleeping.
[2023-10-08 06:19] LABS: Hematocrit 39.7 % (42.0-52.0); Hemoglobin 12.3 g/dL (14.0-18.0); Mean Corpuscular Hemoglobin 26.5 pg (26-34); Mean Corpuscular Volume 85.4 fl (80-100); Mean Platelet Volume 9.7 fl (7.4-10.4); Platelet Count Result 254 k/mm3 (150-375); Red Blood Count 4.65 M/mm3 (4.6-6.20); Red Cell Distribution Width 14.7 % (11.5-14.5); White Blood Count 10.1 K/mm3 (4.5-10.0)
[2023-10-08 06:30] LABS: Alanine Aminotransferase 542 U/L (6-50); Albumin Level 3.8 g/dL (3.5-5.1); Alkaline Phosphatase 107 U/L (38-126); Anion Gap 5 mmol/L (4-12); Aspartate Amino Transferase 234 U/L (17-59); Bilirubin,Total 2.5 mg/dL (0.2-1.3); Blood Urea Nitrogen 21 mg/dL (9-20); Calcium 8.1 mg/dL (8.4-10.2); Carbon Dioxide 30 mmol/L (22-30); Chloride 103 mmol/L (98-107); Estimated CRCL calculation 77 ml/min; Estimated Glomerular Filt Rate > 60; Glucose 101 mg/dL (65-110); Magnesium 1.8 mg/dL (1.6-2.3); Potassium 3.7 mmol/L (3.4-5.0); Sodium 138 mmol/L (137-145)
--- NOTE | 2023-10-08 07:54 | PM.IMPN ---
Progress Note: A&P Assessment and Plan (1) Hypoxia: Code(s): R09.02 - Hypoxemia Status: Acute Assessment and Plan: Patient reports increased shortness of breath. Found to be hypoxic at his doctors appointment and sent to the ER. - Currently 91% on RA - SpO2 dropped into the 70s while sleeping. May need supplemental O2 with sleep. (2) Acute HFrEF (heart failure with reduced ejection fraction): Code(s): I50.21 - Acute systolic (congestive) heart failure Status: Acute Assessment and Plan: Presented with increased shortness of breath. BNP 5140. Troponin WNL. EKG without acute ST changes. Chest XR Cardiomegaly with mild interstitial edema. Echo 10/08/23: LVEF 15-20% with mild pulmonary hypertension. Lexiscan 10/08/23: Small area of mild infarct involving apical to mid inferior wall of left ventricle.Global hypokinesis with left ventricular ejection fraction measuring 27%. Lasix 20 mg IV q12H Consult cardiology for further management, appreciate assistance and recommendations Monitor vital signs, I&Os, BUN/creatinine, daily weights, neuro status and patient is a fall risk Monitor serum electrolytes, Keep serum Potassium>4 and serum Magnesium>2 and CBC (3) Nonsustained ventricular tachycardia: Code(s): I47.29 - Other ventricular tachycardia Status: Acute Assessment and Plan: Patient continues to have asymptomatic nonsustained ventricular tachycardia overnight. Per cross cover note there is concern that patients hypoxia may be contributing to the vtach. - Continuous pulse ox - Tele monitor - Patient may need supplemental O2 while sleeping - Cardiology consulted, started on amiodarone 200 mg BID and metoprolol 12.5 mg daily. - Monitor QT interval due to amiodarone use (4) Fall: Code(s): W19.XXXA - Unspecified fall, initial encounter Status: Acute Assessment and Plan: Mechanical fall without loss of consciousness or significant injury. - Face CT: No fracture - Head CT: Chronic encephalomalacia in right frontal and temporal lobes. Mild nonspecific cerebral white matter disease, which likely represents chronic small vessel ischemic disease. - Chest XR: Cardiomegaly with mild interstitial edema - PT/ OT consulted (5) Transaminitis: Code(s): R74.01 - Elevation of levels of liver transaminase levels Status: Acute Assessment and Plan: Initial LFTs: total bilirubin 1.9, AST 360, ALT 703, alkaline phosphatase 111 - Completed Harvoni for treatment of hepatitis-C several years ago - Hepatitis panel negative - AST/ALT downtrending. Tot bili 2.5. - Abdominal US unremarkable - Holding rosuvastatin - Continue to monitor LFTs (6) Chronic obstructive pulmonary disease: Qualifiers: COPD type: unspecified COPD Qualified Code(s): J44.9 - Chronic obstructive pulmonary disease, unspecified Code(s): J44.9 - Chronic obstructive pulmonary disease, unspecified Status: Acute Assessment and Plan: Not in acute exacerbation. Time Spent With Patient Time with patient: 25 - 35 minutes Subjective Date/time seen: 10/08/23 07:54 Interval history: 68-year-old male with history of hepatitis-C which was treated many years ago, gastroesophageal reflux disease, duodenal ulcer, achalasia, anemia, seizures, bipolar disorder, anxiety, and posttraumatic stress disorder who presented to the emergency department for evaluation of shortness of breath and a fall. Patient is pleasant lying comfortably in bed. He continues to feel tired, but no longer endorses shortness of breath. He had several episodes of asymptomatic vtach over night. He was started on amiodarone and metoprolol this am by cardiology. He had an echo done which showed severely reduced EF 15-20%. Lexiscan revealed Small area of mild infarct involving apical to mid inferior wall of left ventricle and global hypokinesis with left ventricular ejection fraction measuring 27%. Sto
[2023-10-08] MEDS: PERFLUTREN LIPID MICROSPHERES 1.5 ML VIAL DILUTED TO 10 ML TOTAL VOLUME IV PUSH (08:00)
[2023-10-08] MEDS: IPRATROPIUM 0.5 MG/ALBUTEROL SULFATE 2.5 MG AMPUL.NEB 3 ML INHALATION ×3 (08:03→21:24)
--- NOTE | 2023-10-08 08:23 | EST_ITS ---
Patient Info Name: Edward Carnes Age: 68 years : 1955 Gender: Male Ht: 69 in Wt: 203 lbs BSA: 2.14 m2 HR: 114 bpm BP: 111 / 73 mmHg Heart Rhythm: Tachycardia Exam Date: 10/08/2023 12:02 PM Exam Location: Echo Lab Patient Status: Inpatient Admit Date: 10/07/2023 Staff Ordering Physician: Desmond Thomas DO Attending Provider: Zakia Rosas PA-C Exercise Technologist: Loren Galvez CT Exercise Physician: Desmond Thomas DO Exam Type: CA stress angel w NM Study Info Indications R06.09 - Other forms of dyspnea I47.1 - Supraventricular tachycardia A regadenoson stress test was performed. Summary 1. 1. Negative Lexiscan stress test for ischemic ST changes by ECG criteria. 2. 2. Stable hemodynamics throughout the test. 3. 3. Nuclear scan to follow and will be reported separately. Please correlate with it. 4. 4. Patient informed of the above results. Protocol: Lexiscan Stress ECG Details Stage: REST Duration (min): 0 min : 59 sec HR (bpm): 115 SBP (mmHg): 111 DBP (mmHg): 73 Stage: REST Duration (min): 7 min : 20 sec HR (bpm): 111 SBP (mmHg): 111 DBP (mmHg): 73 Stage: STAGE 1 Duration (min): 1 min : 0 sec HR (bpm): 111 SBP (mmHg): 114 DBP (mmHg): 76 Stage: RECOVERY Duration (min): 1 min : 0 sec HR (bpm): 114 SBP (mmHg): 114 DBP (mmHg): 76 Stage: RECOVERY Duration (min): 1 min : 20 sec HR (bpm): 114 SBP (mmHg): 114 DBP (mmHg): 76 Rest HR: 111 bpm Peak HR: 114 bpm Rest Sys BP: 111 mmHg Peak Sys BP: 114 mmHg Max Pred HR: 152 bpm % Max Pred HR: 75 % Target HR: 129 bpm Max RPP: 12,996 bpm*mmHg Termination Reason: Completed protocol Cardiac Symptoms: Shortness of breath Total Time: 1 min : 0 sec Rest Hanks BP: 73 mmHg Peak Hanks BP: 76 mmHg Total Dose: 0.4 mg Resting ECG Sinus tachycardia, anteroseptal infarct, age indeterminate. Stress ECG No ST changes. Arrhythmias None. Report Signatures
[2023-10-08] MEDS: MULTIVITAMINS THERAPEUTIC TAB (*BKC) 1 TABLET PO (08:58)
[2023-10-08] MEDS: FUROSEMIDE INJ 40 MG/4 ML VIAL IV PUSH (08:58)
[2023-10-08] MEDS: GABAPENTIN 300 MG CAPSULE 600 MG PO ×2 (08:59→20:25)
[2023-10-08] MEDS: AMIODARONE HCL 200 MG TABLET PO ×2 (09:00→16:30)
[2023-10-08] MEDS: METOPROLOL SUCCINATE EXT REL 12.5 MG TABCR PO (09:00)
[2023-10-08] MEDS: LORazepam (*CRX) 1 MG TABLET 2 MG PO ×2 (09:07→20:29)
--- NOTE | 2023-10-08 09:31 | PM.CNCAR ---
Assessment and Plan Assessment and plan (1) Congestive heart failure: Code(s): I50.9 - Heart failure, unspecified Status: Acute Assessment and Plan: Unknown type of CHF. NTproBNP 5,140. Troponin normal. EKG without acute ST changes. Obtain echo and lexiscan myoview stress test. Agree with diuresis Lasix 20 mg IV BID. Monitor electrolytes and renal function. (2) Nonsustained ventricular tachycardia: Code(s): I47.29 - Other ventricular tachycardia Status: Acute Assessment and Plan: Had 18 beat run and 5 beat run. Start Amiodarone 200 mg BID. Monitor QT interval. Start Metoprolol Succinate 12.5 mg daily. (3) Transaminitis: Code(s): R74.01 - Elevation of levels of liver transaminase levels Status: Acute Assessment and Plan: Could be due to passive congestion of liver. (4) PAD (peripheral artery disease): Code(s): I73.9 - Peripheral vascular disease, unspecified Status: Acute Assessment and Plan: Stable and mild. (5) Mixed hyperlipidemia: Code(s): E78.2 - Mixed hyperlipidemia Status: Acute Assessment and Plan: Normally on Rosuvastatin. On hold due to transaminitis. (6) Chronic obstructive pulmonary disease: Qualifiers: COPD type: unspecified COPD Qualified Code(s): J44.9 - Chronic obstructive pulmonary disease, unspecified Code(s): J44.9 - Chronic obstructive pulmonary disease, unspecified Status: Acute History of Present Illness History of Present Illness Consult date/time: 10/08/23 09:31 Reason For Visit: CHF/Hypoxia Narrative: 68 yr old man who is my regular cardiology patient and who's PCP is Dr. Daniel Keyes presents to ER for sob. He has a history of mild right PAD, DM, dyslipidemia, COPD, former smoking, PTSD, covid infection on 05/11/21. Reports he was at his PCP and noted to be hypoxic and sent in to ER. He has QUEEN for several months and can walk only 40 feet because of it. Denies chest pain, orthopnea, PND, edema, dizziness, palpitations. Cardiovascular Procedures Electrophysiology:: 09/04/23 EKG: Sinus tachycardia at 101, PVC, LAE, cannot r/o septal infarct, consider inferior infarct. Stress Tests:: 08/22/21 PFT: Moderately severe obstruction. 08/30/21 DARREL: Right 0.95 with TBI 0.6; left 1.01 with TBI 0.79. Review of Systems Review of Systems: All systems reviewed & are unremarkable except as noted in HPI and below Constitutional: Constitutional: Reports as per HPI, Denies chills, Reports fatigue and Denies fever(s) Cardiovascular: Cardiovascular: Reports as per HPI, Denies chest pain and Denies irregular heart rhythm Respiratory: Respiratory: Reports as per HPI, Reports dyspnea and Reports dyspnea on exertion Gastrointestinal: Gastrointestinal: Reports as per HPI and Denies abdominal pain Genitourinary: Genitourinary: Reports as per HPI and Denies dysuria Musculoskeletal: Musculoskeletal: Reports as per HPI Neurologic: Reports as per HPI, Denies dizziness and Denies syncope [facility] Past Medical History Medical History (Updated 10/08/23 @ 07:58 by Zakia Rsoas PA-C) Achalasia Anxiety Bipolar disorder Chronic obstructive pulmonary disease Gastric ulcer Gastroesophageal reflux disease without esophagitis Hepatitis C Status post Harvoni. Hypothyroidism Mixed hyperlipidemia Posttraumatic stress disorder Surgical History Surgical History (Updated 10/07/23 @ 22:36 by Leticia Moscoso PA-C) History of exploratory laparotomy (12/2015) With over-sewing of perforated duodenal ulcer complicated by a retroperitoneal abscess requiring washout and drainage. Family History Family History Mother Family history of chronic obstructive pulmonary disease Father Acute myocardial infarction Family history of primary malignant neoplasm of liver Other Family history of cardiovascular disease Social History Social
--- NOTE | 2023-10-08 10:19 | IVDEFINITY ---
Prior to administration of IV Definity the patient was educated on the risks and benefits of the imaging enhancing agent including potential adverse side effects. The patient verbalized understanding. Allergies were verified. No exclusion criteria were identified and at least one of the following inclusion criteria were met: 1) physician request, 2) patient technically difficult to image (per the [place] [employer] guidelines of two or more segments not discernable within the apical view), or 3) questionable left ventricular function. ?
[2023-10-08] MEDS: ACETAMINOPHEN 325 MG TABLET 650 MG PO (13:17)
[2023-10-08] MEDS: FUROSEMIDE INJ 40 MG/4 ML VIAL 20 MG IV PUSH (16:30)
--- NOTE | 2023-10-08 17:11 | ECHO_ITS ---
Patient Info Name: Edward Carnes Age: 68 years : 1955 Gender: Male Ht: 69 in Wt: 213 lbs BSA: 2.20 m2 HR: 110 bpm BP: 99 / 68 mmHg Technical Quality: Good Exam Date: 10/08/2023 7:26 AM Exam Location: Echo Lab Patient Status: Outpatient Admit Date: 10/07/2023 Staff Ordering Physician: Leticia Moscoso PA-C Nutrition Services Manager: Cinthya Mooney RDCS Attending Provider: Zakia Rosas PA-C Referring Physician: Blanka MADISON; Exam Type: CA echo dop color flow w con Study Info Indications I51.7 - Cardiomegaly R06.02 - Shortness of breath Complete two-dimensional, color flow and Doppler transthoracic echocardiogram is performed with contrast to opacify the left ventricle and to improve the deliniation of the left ventricle endocardial borders. Contrast/Agitated Saline Contrast/Ag. Saline: Definity Amount: 2.00 ml Administered By: Cinthya Mooney RDCS Existing IV Access: Yes IV Access Condition: patent with no signs of infiltration Summary 1. Definity contrast administered improved wall motion interpretation. 2. Left ventricular systolic function is severely globally reduced, estimated at 15-20%. 3. Left ventricular chamber dimension is severely enlarged. 4. The left ventricular diastolic function is abnormal. 5. E/e' 18 is elevated. 6. Right ventricular chamber dimension is mildly enlarged. 7. Right ventricular systolic function is moderately reduced. 8. Left atrial chamber dimension is moderately enlarged. 9. Right atrial chamber dimension is moderately enlarged. 10. There is mild aortic valve sclerosis. 11. There is mild mitral valve regurgitation. 12. There is mild tricuspid valve regurgitation. 13. Mild pulmonary hypertension, estimated pulmonary arterial systolic pressure is 44 mmHg. 14. There is trivial pericardial effusion. Left Ventricle E/e' 18 is elevated. Definity contrast administered improved wall motion interpretation. Left ventricular systolic function is severely globally reduced, estimated at 15-20%. Left ventricular chamber dimension is severely enlarged. The left ventricular diastolic function is abnormal. Right Ventricle Right ventricular systolic function is moderately reduced. Right ventricular chamber dimension is mildly enlarged. Left Atria Left atrial chamber dimension is moderately enlarged. Right Atria Right atrial chamber dimension is moderately enlarged. Aortic Valve The aortic valve is trileaflet. There is mild aortic valve sclerosis. There is no aortic valve stenosis. There is no aortic valve regurgitation. Pulmonic Valve There is no pulmonic regurgitation. Mitral Valve There is no mitral valve stenosis. There is mild mitral valve regurgitation. Tricuspid Valve There is mild tricuspid valve regurgitation. Mild pulmonary hypertension, estimated pulmonary arterial systolic pressure is 44 mmHg. Pericardium/Pleural There is trivial pericardial effusion. Inferior Vena Cava Normal inferior vena cava with >50% collapse upon inspiration consistent with normal right atrial pressure, 5 mmHg. Aorta The aortic root size at the sinus of Valsalva is normal. Left Ventricular Outflow Tract Name Value Normal LVOT 2D LVOT Diameter 2.01 cm LVOT Doppler ---------
[2023-10-08] MEDS: SACUBITRIL/VALSARTAN 12-13 MG TABLET 1 TAB PO (20:25)
[2023-10-09] VITALS (24 sets, daily range): BP systolic 101–123; BP diastolic 57–94; PULSE 104–112; RESP 12–24; TEMP 36.6–38.1; O2SAT 90–99
--- NOTE | 2023-10-09 07:21 | PM.IMPN ---
Progress Note: A&P Assessment and Plan (1) Hypoxia: Code(s): R09.02 - Hypoxemia Status: Acute Assessment and Plan: Patient reports increased shortness of breath. Found to be hypoxic at his doctors appointment and sent to the ER. - Currently 91% on RA - SpO2 dropped into the 70s while sleeping. May need supplemental O2 with sleep. ApneaLink ordered. (2) Acute HFrEF (heart failure with reduced ejection fraction): Code(s): I50.21 - Acute systolic (congestive) heart failure Status: Acute Assessment and Plan: Presented with increased shortness of breath. BNP 5140. Troponin WNL. EKG without acute ST changes. Chest XR Cardiomegaly with mild interstitial edema. Echo 10/08/23: LVEF 15-20% with mild pulmonary hypertension. Lexiscan 10/08/23: Small area of mild infarct involving apical to mid inferior wall of left ventricle.Global hypokinesis with left ventricular ejection fraction measuring 27%. Cardiac catheterization 10/[address] Courtney: left main coronary artery w/o any significant obstructive disease, mid LAD has mild disease, remainder of the LAD and the diagonal branches have mild luminal irregularities without any significant obstructive angiographic disease, left circumflex artery and the main marginal branches have mild luminal irregularities without any significant obstructive angiographic disease, mid portion of the RCA has mild diffuse disease. Lasix 20 mg IV q12H Consult cardiology for further management, appreciate assistance and recommendations Monitor vital signs, I&Os, BUN/creatinine, daily weights, neuro status and patient is a fall risk Monitor serum electrolytes, Keep serum Potassium>4 and serum Magnesium>2 and CBC (3) Nonsustained ventricular tachycardia: Code(s): I47.29 - Other ventricular tachycardia Status: Acute Assessment and Plan: Patient continues to have asymptomatic nonsustained ventricular tachycardia overnight. Per cross cover note there is concern that patients hypoxia may be contributing to the vtach. - Continuous pulse ox, SpO2 has remained WNL - Tele monitor - Patient may need supplemental O2 while sleeping. ApneaLink ordered. - Cardiology consulted, started on amiodarone 200 mg BID and metoprolol 12.5 mg daily. - Monitor QT interval due to amiodarone use (4) Fall: Code(s): W19.XXXA - Unspecified fall, initial encounter Status: Acute Assessment and Plan: Mechanical fall without loss of consciousness or significant injury. - Face CT: No fracture - Head CT: Chronic encephalomalacia in right frontal and temporal lobes. Mild nonspecific cerebral white matter disease, which likely represents chronic small vessel ischemic disease. - Chest XR: Cardiomegaly with mild interstitial edema - PT/ OT consulted (5) Transaminitis: Code(s): R74.01 - Elevation of levels of liver transaminase levels Status: Acute Assessment and Plan: Initial LFTs: total bilirubin 1.9, AST 360, ALT 703, alkaline phosphatase 111 - Completed Harvoni for treatment of hepatitis-C several years ago - Hepatitis panel negative - AST/ALT downtrending. Tot bili 2.4. - Abdominal US unremarkable - Holding rosuvastatin - Continue to monitor LFTs (6) Chronic obstructive pulmonary disease: Qualifiers: COPD type: unspecified COPD Qualified Code(s): J44.9 - Chronic obstructive pulmonary disease, unspecified Code(s): J44.9 - Chronic obstructive pulmonary disease, unspecified Status: Acute Assessment and Plan: Not in acute exacerbation. Time Spent With Patient Time with patient: 25 - 35 minutes Subjective Date/time seen: 10/09/23 07:21 Interval history: 68-year-old male with history of hepatitis-C which was treated many years ago, gastroesophageal reflux disease, duodenal ulcer, achalasia, anemia, seizures, bipolar disorder, anxiety, and posttraumatic stress disorder who presented to the emergency department for ev
[2023-10-09] MEDS: IPRATROPIUM 0.5 MG/ALBUTEROL SULFATE 2.5 MG AMPUL.NEB 3 ML INHALATION ×3 (07:52→20:27)
[2023-10-09 07:56] LABS: Basophils Absolute Auto 0.1 K/mm3 (0.0-0.1); Basophils Percent Auto 0.5 % (0.2-1.2); Eosinophils Absolute Auto 0.2 K/mm3 (0-0.3); Eosinophils Percent Auto 1.7 % (0-4.4); Hematocrit 43.8 % (42.0-52.0); Hemoglobin 13.2 g/dL (14.0-18.0); Immature Granulocyte Percent A 1.1 % (0-0.5); Lymphocytes Absolute Auto 0.98 K/mm3 (0.9-3.2); Lymphocytes Percent Auto 10.3 % (18.3-44.2); Mean Corpuscular HGB Conc 30.1 g/dl (32-36); Mean Corpuscular Hemoglobin 25.8 pg (26-34); Mean Corpuscular Volume 85.5 fl (80-100); Mean Platelet Volume 9.6 fl (7.4-10.4); Monocytes Absolute Auto 0.9 K/mm3 (0.1-0.6); Monocytes Percent Auto 9.9 % (2.6-8.5); Neutrophils Absolute Auto 7.3 K/mm3 (1.3-6.7); Neutrophils Percent Auto 76.5 % (45.5-73.1); Platelet Count Result 272 k/mm3 (150-375); Red Blood Count 5.12 M/mm3 (4.6-6.20); Red Cell Distribution Width 14.6 % (11.5-14.5); White Blood Count 9.5 K/mm3 (4.5-10.0)
[2023-10-09 08:04] LABS: Alanine Aminotransferase 394 U/L (6-50); Albumin Level 3.8 g/dL (3.5-5.1); Alkaline Phosphatase 95 U/L (38-126); Anion Gap 4 mmol/L (4-12); Aspartate Amino Transferase 156 U/L (17-59); Bilirubin,Total 2.4 mg/dL (0.2-1.3); Blood Urea Nitrogen 18 mg/dL (9-20); Calcium 7.9 mg/dL (8.4-10.2); Carbon Dioxide 31 mmol/L (22-30); Chloride 102 mmol/L (98-107); Estimated CRCL calculation 87 ml/min; Estimated Glomerular Filt Rate > 60; Glucose 114 mg/dL (65-110); Potassium 3.5 mmol/L (3.4-5.0); Sodium 137 mmol/L (137-145)
--- NOTE | 2023-10-09 08:06 | ECG_ITS ---
[facility] [address] Test Date: 2023-10-09 Pat Name: Edward Carnes Department: Room: 319 Gender: M Can Intake Worker: RAND : 1955 Requested By: Desmond Landa Order Number: [id number] Eli MD: Desmond Thomas D.O. Measurements Intervals [place] Rate: 107 P: 54 MS: 186 QRS: -34 QRSD: 86 T: 81 QT: 365 QTc: 488 Interpretive Statements SINUS TACHYCARDIA WITH OCCASIONAL VENTRICULAR PREMATURE COMPLEXES POSSIBLE LEFT ATRIAL ENLARGEMENT LEFT AXIS DEVIATION LOW QRS VOLTAGE IN LIMB LEADS CANNOT R/O SEPTAL INFARCT, AGE INDETERMINATE BORDERLINE ST-T WAVE ABNORMALITY - INF/LAT LEADS ABNORMAL ECG No previous ECG available for comparison Electronically Signed On 10-09-2023 11:19:15 CDT by Desmond Thomas D.O.
--- NOTE | 2023-10-09 08:06 | PM.PNCARD ---
Progress Note: A&P Assessment and Plan (1) Congestive heart failure: Code(s): I50.9 - Heart failure, unspecified Status: Acute Assessment and Plan: Unknown type of CHF. NTproBNP 5,140. Troponin normal. EKG without acute ST changes. 10/08/23 Echo: EF 15-20%, severe LVE, diastolic dysfunction (E/e' 18), mild RVE, mod RV systolic dysfunction, mod biatrial enlargement, mild MR/TR, RVSP 44 mmHg, trace pericardial effusion. 10/08/23 Lxiscan myoview stress test shows no ischemia. Agree with diuresis Lasix 20 mg IV BID. Monitor electrolytes and renal function. (2) Nonsustained ventricular tachycardia: Code(s): I47.29 - Other ventricular tachycardia Status: Acute Assessment and Plan: Had 18 beat run and 5 beat run. Started Amiodarone 200 mg BID. Monitor QT interval. Started Metoprolol Succinate 12.5 mg daily. (3) Transaminitis: Code(s): R74.01 - Elevation of levels of liver transaminase levels Status: Acute Assessment and Plan: Could be due to passive congestion of liver. (4) PAD (peripheral artery disease): Code(s): I73.9 - Peripheral vascular disease, unspecified Status: Acute Assessment and Plan: Stable and mild. (5) Mixed hyperlipidemia: Code(s): E78.2 - Mixed hyperlipidemia Status: Acute Assessment and Plan: Normally on Rosuvastatin. On hold due to transaminitis. (6) Chronic obstructive pulmonary disease: Qualifiers: COPD type: unspecified COPD Qualified Code(s): J44.9 - Chronic obstructive pulmonary disease, unspecified Code(s): J44.9 - Chronic obstructive pulmonary disease, unspecified Status: Acute (7) Combined systolic and diastolic congestive heart failure: Code(s): I50.40 - Unspecified combined systolic (congestive) and diastolic (congestive) heart failure Status: Acute Assessment and Plan: Acute. Diuresis with Lasix 20 mg IV BID. Started Metoprolol and Entresto. Order Life Vest to prevent sudden cardiac arrest. Discuss risks/benefits/alternative to LHC and he is agreeable. Consulted [facility] for it. Subjective Date/time seen: 10/09/23 08:06 Interval history: He feels much better with no sob. No chest pain. Exam Const: General: cooperative, healthy appearing and comfortable Orientation/consciousness: oriented to person, oriented to place and oriented to time Resp: Auscultation: no crackles, no rales, no rhonchi, no wheezes and diminished lung sounds Cardio: Rate: tachycardic Rhythm: regular rhythm Heart sounds: no murmurs Peripheral pulses: dorsalis pedis present Neuro: General: oriented to person, oriented to place and oriented to time Extrem: Right lower extremity: no edema Left lower extremity: no edema Objective Data Vital Signs Vital Signs: Vital Signs - 24 hr 10/08/23 08:14 10/08/23 09:00 10/08/23 09:00 Temperature Pulse Rate 111 H 109 H 109 H Respiratory Rate 18 Blood Pressure Pulse Oximetry Oxygen Delivery 10/08/23 12:00 10/08/23 14:02 10/08/23 14:13 Temperature Pulse Rate 114 H 111 H 109 H Respiratory Rate 18 19 Blood Pressure Pulse Oximetry Oxygen Delivery 10/08/23 16:30 10/08/23 14:00 10/08/23 16:00 Temperature 99.6 F Pulse Rate 112 H 112 H 110 H Respiratory Rate 18 Blood Pressure 112/80 Pulse Oximetry 96 Oxygen Delivery 10/08/23 20:00 10/08/23 21:16 10/08/23 21:26 Temperature 97.1 F L Pulse Rate 108 H 107 H 103 H Respiratory Rate 24 H Blood Pressure 106/72 Pulse Oximetry 92 98 Oxygen Delivery Room Air 10/08/23 21:26 10/09/23 06:00 10/09/23 00:00 Temperature 97.8 F Pulse Rate 103 H 105 H 105 H Respiratory Rate 20 24 H Blood Pressure 101/64 Pulse Oximetry 90 Oxygen Delivery 10/09/23 04:00 10/09/23 07:53 10/09/23 07:54 Temperature Pulse Rate 106 H 106 H Respiratory Rate 18 Blood Pressure Pulse Oximetry 93 Oxygen Delivery Room Air In
[2023-10-09] MEDS: GABAPENTIN 300 MG CAPSULE 600 MG PO ×2 (09:00→20:15)
[2023-10-09] MEDS: AMIODARONE HCL 200 MG TABLET PO ×2 (09:00→17:01)
[2023-10-09] MEDS: METOPROLOL SUCCINATE EXT REL 12.5 MG TABCR PO (09:00)
[2023-10-09] MEDS: MULTIVITAMINS THERAPEUTIC TAB (*BKC) 1 TABLET PO (09:01)
[2023-10-09] MEDS: SACUBITRIL/VALSARTAN 12-13 MG TABLET 1 TAB PO ×2 (09:44→20:20)
--- NOTE | 2023-10-09 10:40 | PM.CNCAR ---
Assessment and Plan Assessment and plan (1) Acute HFrEF (heart failure with reduced ejection fraction): Code(s): I50.21 - Acute systolic (congestive) heart failure Status: Acute (2) Combined systolic and diastolic congestive heart failure: Code(s): I50.40 - Unspecified combined systolic (congestive) and diastolic (congestive) heart failure Status: Acute (3) Nonsustained ventricular tachycardia: Code(s): I47.29 - Other ventricular tachycardia Status: Acute Plan Will proceed with [facility]. Further recommendations pending results of C. History of Present Illness History of Present Illness Consult date/time: 10/09/23 10:40 Requesting physician: Desmond Thomas DO Consult reason: Other ([facility]) Reason For Visit: CHF/Hypoxia Narrative: Interventional Cardiology is consulted for [facility] by Dr. Thomas. This is a 68 year old male with peripheral arterial disease, diabetes mellitus, dyslipidemia, COPD, former smoker, PTSD who has been having dyspnea on exertion for several months. No chest pain. He is admitted for acute CHF. Echocardiogram shows LVEF 15-20%, severe enlargement of LV, moderate reduction of RVSF, moderate biatrial enlargement, mild MR, mild TR. Lexiscan shows small area of mild infarct involving apical to mid inferior wall of left ventricle. Therefore, patient has been referred for C. Review of Systems Review of Systems: All systems reviewed & are unremarkable except as noted in HPI and below (HPI) [facility] Past Medical History Medical History Achalasia Anxiety Bipolar disorder Chronic obstructive pulmonary disease Gastric ulcer Gastroesophageal reflux disease without esophagitis Hepatitis C Status post Harvoni. Hypothyroidism Mixed hyperlipidemia Posttraumatic stress disorder Surgical History Surgical History History of exploratory laparotomy (12/2015) With over-sewing of perforated duodenal ulcer complicated by a retroperitoneal abscess requiring washout and drainage. Family History Family History Mother Family history of chronic obstructive pulmonary disease Father Acute myocardial infarction Family history of primary malignant neoplasm of liver Other Family history of cardiovascular disease Social History Social History Social History: Surrogate medical decision maker: Sylwia Carnes, spouse. Code status: Full code. Smoking packs per day: 3 Smoking cigarettes per day: 60.0 Years smoked: 45 Smoking pack-years: 135.00 Smoking status: Former smoker Second hand tobacco smoke exposure: No Alcohol intake: former Substance use: current Substance use type: marijuana Other substance usage details: Daily Last use: 10/05/23 Do You Feel Safe in your Home?: Yes Lack of Transportation: YES Lack of Food: Never True Current Housing: I Have Housing Concerned About Future Housing: No Difficulty Paying Gas/Electric Bills: No Difficulty Paying for Meds: No Currently Unemployed: No Education: High School Diploma/GED Difficulty w/ Childcare or Family Care: No Additional living arrangements comments: Lives with in [place]. Additional occupation/education comments: Disabled since 1978. Spiritual care concerns: No Meds Home Medications and Allergies Home Medications Medication Instructions Recorded Confirmed Type lorazepam 2 mg tablet 2 mg PO BID PRN Anxiety 04/27/19 10/07/23 History multivitamin 1 tablet PO DAILY 04/27/19 10/07/23 History nortriptyline 25 mg capsule 75 mg PO DAILY 04/27/19 10/07/23 History gabapentin 300 mg capsule 600 mg PO BID #120 caps 06/14/22 10/07/23 Rx paroxetine HCl 10 mg tablet 10 mg PO DAILY #30 tabs 02/25/23 10/07/23 Rx albuterol sulfate 90 mcg/actuation 1 inh inhalation Q4H PRN shortness 09/04/23
--- NOTE | 2023-10-09 11:28 | WPDMODSED ---
Moderate Sedation Note-Pt Data Patient Data Diagnosis: Acute systolic heart failure, coronary artery disesase Present Complaint: Acute systolic heart failure, coronary artery disesase Procedure to be performed/Plan: Coronary angiography, left heart cath, +/- PCI Allergies Allergy/AdvReac Type Severity Reaction Status Date / Time No Known Allergies Allergy Verified 10/07/23 12:28 Home Medications Medication Instructions Recorded Confirmed Type lorazepam 2 mg tablet 2 mg PO BID PRN Anxiety 04/27/19 10/07/23 History multivitamin 1 tablet PO DAILY 04/27/19 10/07/23 History nortriptyline 25 mg capsule 75 mg PO DAILY 04/27/19 10/07/23 History gabapentin 300 mg capsule 600 mg PO BID #120 caps 06/14/22 10/07/23 Rx paroxetine HCl 10 mg tablet 10 mg PO DAILY #30 tabs 02/25/23 10/07/23 Rx albuterol sulfate 90 mcg/actuation 1 inh inhalation Q4H PRN shortness 09/04/23 10/07/23 Rx aerosol inhaler of breath or wheezing #8.5 grams rosuvastatin 5 mg tablet (Crestor) 5 mg PO DAILY #90 tabs 09/04/23 10/07/23 Rx diclofenac sodium 75 mg 75 mg PO BID 10/07/23 10/07/23 History tablet,delayed release Current Medications: Active Medications Acetaminophen (Acetaminophen 325 Mg Tablet) 650 mg PO Q6H PRN PRN Reason: Mild Pain (1-3) or Fever Last Admin: 10/08/23 13:17 Dose: 650 mg Albuterol/Ipratropium (Ipratropium 0.5 Mg/Albuterol Sulfate 2.5 Mg Ampul.Neb 3 Ml) 3 ml INHALATION Q6HRT [facility] Last Admin: 10/09/23 07:52 Dose: 3 ml Amiodarone HCl (Amiodarone Hcl 200 Mg Tablet) 200 mg PO BID [facility] Last Admin: 10/09/23 09:00 Dose: 200 mg Furosemide (Furosemide Inj 40 Mg/4 Ml Vial) 20 mg IV PUSH BID [facility] Last Admin: 10/08/23 16:30 Dose: 20 mg Gabapentin (Gabapentin 300 Mg Capsule) 600 mg PO Q12HR [facility] Last Admin: 10/09/23 09:00 Dose: 600 mg Lorazepam (Lorazepam (*Crx) 1 Mg Tablet) 2 mg PO BID PRN PRN Reason: Anxiety Last Admin: 10/08/23 20:29 Dose: 2 mg Metoprolol Succinate (Metoprolol Succinate Ext Rel 12.5 Mg Tabcr) 12.5 mg PO QAM [facility] Last Admin: 10/09/23 09:00 Dose: 12.5 mg Multivitamins Therapeutic (Multivitamins Therapeutic Tab (*Bkc)) 1 tablet PO DAILY [facility] Last Admin: 10/09/23 09:01 Dose: 1 tablet Nortriptyline HCl (Nortriptyline Hcl 25 Mg Capsule) 75 mg PO HS [facility] Ondansetron HCl (Ondansetron Inj 4 Mg/2 Ml Vial) 4 mg IV PUSH Q4H PRN PRN Reason: Nausea Paroxetine HCl (Paroxetine 10 Mg Tablet) 10 mg PO DAILY [facility] Last Admin: 10/09/23 09:00 Dose: Not Given Sacubitril/Valsartan (Sacubitril/Valsartan 12-13 Mg Tablet) 1 tab PO Q12HR [facility] Last Admin: 10/09/23 09:44 Dose: 1 tab Sedation/Anesthesia: No previous sedation/anesthesia problems (including family history). [facility] Past Medical History Medical History Achalasia Anxiety Bipolar disorder Chronic obstructive pulmonary disease Gastric ulcer Gastroesophageal reflux disease without esophagitis Hepatitis C Status post Harvoni. Hypothyroidism Mixed hyperlipidemia Posttraumatic stress disorder Surgical History Surgical History History of exploratory laparotomy (12/2015) With over-sewing of perforated duodenal ulcer complicated by a retroperitoneal abscess requiring washout and drainage. Family History Family History Mother Family history of chronic obstructive pulmonary disease Father Acute myocardial infarction Family history of primary malignant neoplasm of liver Other Family history of cardiovascular disease Social History Social History Social History: Surrogate medical decision maker: Sylwia Carnes, spouse. Code status: Full code. Smoking packs per day: 3 Smoking cigarettes per day: 60.0 Years smoked: 45 Smoking pack-years: 135.00 Smoking status: Former smoker Second hand tobacco smoke exposure: No
--- NOTE | 2023-10-09 11:30 | WPDCARDPROC ---
Cardiac Cath Procedure Note Date of procedure:: 10/09/23 Performing physician:: CATHETERIZATION LABORATORY REPORT Procedure Date: 10/09/2023 Die Storage Worker: Rose Marie Courtney M.D., [facility]? Referring Physician: Desmond Thomas M.D. ? Anesthesia: Versed and Fentanyl were ordered and given in my presence at 11:00, procedure ended at 11:23. Supervision of nurse monitored moderate sedation with Versed and Fentanyl was provided for 23 minutes. Total of Versed 1mg and Fentanyl 50mcg were administered by the Slitter Helper RN Kizzy Hsu. Pre-op Diagnosis: Coronary artery disease Post-op Diagnosis: 1. Mild non-obstructive coronary artery disease 2. Severely elevated LVEDP of 43mmHg Procedure(s): 1. Moderate sedation 2 Ultrasound-guided access of the right radial artery 3. Left heart catheterization with coronary angiography Access Site: Right radial artery Brief History and Clinical Indications: Patient is a 68 year old male with peripheral arterial disease, diabetes mellitus, dyslipidemia, COPD, former smoker, PTSD who has been having dyspnea on exertion for several months. No chest pain. He is admitted for acute CHF. Echocardiogram shows LVEF 15-20%, severe enlargement of LV, moderate reduction of RVSF, moderate biatrial enlargement, mild MR, mild TR. Lexiscan shows small area of mild infarct involving apical to mid inferior wall of left ventricle. Therefore, patient has been referred for [facility]. All risks, benefits and alternatives to left heart catheterization with or without percutaneous coronary intervention was discussed at length with the patient. Risk of complications including but not limited to bleeding, infection, arrhythmia, stroke, worsening kidney function, blood loss, groin hematoma, limb loss, emergency coronary artery bypass grafting, and even were discussed with the patient and all questions were answered. The patient understood and wished to proceed. Time out called, patient name, date of , medical record number, allergies, procedure performed, identify Die Storage Worker, patient and staff member concurred with accurate data, procedure carried on. Findings: LEFT HEART CATHETERIZATION FINDINGS: 1. Left main: The left main coronary artery is widely patent without any significant obstructive disease. 2. Left anterior descending: The mid LAD has mild disease. Otherwise, remainder of the LAD and the diagonal branches have mild luminal irregularities without any significant obstructive angiographic disease. 3. Left circumflex: The left circumflex artery and the main marginal branches have mild luminal irregularities without any significant obstructive angiographic disease. 4. Right coronary artery: The mid portion of the RCA has mild diffuse disease. No significant obstructive angiographic disease. The RCA is the dominant vessel. 5. Left ventricle: A. End-diastolic pressure 43 mmHg. B. LV gram deferred. C. No significant gradient across aortic valve on catheter pullback. Description of Procedure: Informed consent signed and placed in the chart. Patient transferred to distillery laborer room. Prepped and draped in usual sterile fashion. 2% lidocaine injected subcutaneously in right wrist area. 22-gauge venipuncture catheter used to access the right radial artery under ultrasound guidance. 6-FR slender sheath placed in right radial artery. Nitroglycerine and Verapamil were given intraarterial through the sheath. Versacore wire advanced under fluoroscopy 5F Tig 4 diagnostic catheter engaged Left Main Coronary Artery. 5F Tig 4 diagnostic catheter engaged Right Coronary Artery Multiple orthogonal angiogram obtained and reviewed 5F Pigtail diagnostic catheter crossed aortic valve to obtain LVEDP, LV angiogram deferred. Hemostasis was achieved by application of TR band. Post Operative Condition: Stable No significant blood loss Disposition: Floor Plan: The patient will be monitored in the recovery area. The above findin
--- NOTE | 2023-10-09 13:45 | PC.NURSE ---
Returned to room per stretcher from Cardiac Scraper Operator.
[2023-10-09] MEDS: FUROSEMIDE INJ 40 MG/4 ML VIAL 20 MG IV PUSH (14:59)
[2023-10-09 16:53] LABS: Hepatitis C RNA, Quant PCR <15 NOT DETECTED IU/mL (NOT DETECTED)
[2023-10-09] MEDS: ACETAMINOPHEN 325 MG TABLET 650 MG PO (20:19)
[2023-10-09] MEDS: LORazepam (*CRX) 1 MG TABLET 2 MG PO (20:19)
[2023-10-09] MEDS: NORTRIPTYLINE HCL 25 MG CAPSULE 75 MG PO (20:19)
[2023-10-09] MEDS: SACUBITRIL/VALSARTAN 24-26 MG TABLET 1 TAB PO (21:00)
[2023-10-10] VITALS (10 sets, daily range): BP systolic 110–121; BP diastolic 75–90; PULSE 101–110; RESP 16–20; TEMP 36.9–37.7; O2SAT 79–97
--- NOTE | 2023-10-10 05:50 | PCRCNOTE ---
0200 neb tx was omitted due to oximetry study
[2023-10-10 06:15] LABS: Basophils Absolute Auto 0.1 K/mm3 (0.0-0.1); Basophils Percent Auto 0.7 % (0.2-1.2); Eosinophils Absolute Auto 0.3 K/mm3 (0-0.3); Eosinophils Percent Auto 3.2 % (0-4.4); Hematocrit 47.2 % (42.0-52.0); Hemoglobin 14.2 g/dL (14.0-18.0); Immature Granulocyte Absolute 0.06 K/mm3 (0.00-0.031); Immature Granulocyte Percent A 0.6 % (0-0.5); Lymphocytes Absolute Auto 1.55 K/mm3 (0.9-3.2); Lymphocytes Percent Auto 16.3 % (18.3-44.2); Mean Corpuscular HGB Conc 30.1 g/dl (32-36); Mean Corpuscular Hemoglobin 26.3 pg (26-34); Mean Corpuscular Volume 87.4 fl (80-100); Mean Platelet Volume 9.2 fl (7.4-10.4); Monocytes Absolute Auto 0.9 K/mm3 (0.1-0.6); Monocytes Percent Auto 8.9 % (2.6-8.5); Neutrophils Absolute Auto 6.7 K/mm3 (1.3-6.7); Neutrophils Percent Auto 70.3 % (45.5-73.1); Platelet Count Result 291 k/mm3 (150-375); White Blood Count 9.5 K/mm3 (4.5-10.0)
[2023-10-10 06:33] LABS: Alanine Aminotransferase 328 U/L (6-50); Albumin Level 4.2 g/dL (3.5-5.1); Alkaline Phosphatase 97 U/L (38-126); Anion Gap 6 mmol/L (4-12); Aspartate Amino Transferase 118 U/L (17-59); Bilirubin,Total 2.2 mg/dL (0.2-1.3); Blood Urea Nitrogen 13 mg/dL (9-20); Calcium 8.5 mg/dL (8.4-10.2); Carbon Dioxide 31 mmol/L (22-30); Chloride 103 mmol/L (98-107); Estimated CRCL calculation 88 ml/min; Estimated Glomerular Filt Rate > 60; Glucose 112 mg/dL (65-110); Potassium 3.5 mmol/L (3.4-5.0); Sodium 140 mmol/L (137-145)
--- NOTE | 2023-10-10 06:42 | ECG_ITS ---
[facility] [address] Test Date: 2023-10-10 Pat Name: Edward Carnes Department: Room: 319 Gender: M Measurement Psychologist: : 1955 Requested By: Desmond Landa Order Number: [id number] Eli MD: Desmond Thomas D.O. Measurements Intervals [place] Rate: 109 P: 72 PA: 188 QRS: -40 QRSD: 86 T: 84 QT: 355 QTc: 479 Interpretive Statements SINUS TACHYCARDIA WITH OCCASIONAL VENTRICULAR PREMATURE COMPLEXES LEFT AXIS DEVIATION LOW QRS VOLTAGE IN LIMB LEADS ANTERIOR MYOCARDIAL INFARCTION , AGE INDETERMINATE ABNORMAL ECG Compared to ECG 10/09/2023 09:47:06 NO SIGNIFICANT CHAGE Electronically Signed On 10-10-2023 08:43:01 CDT by Desmond Thomas D.O.
[2023-10-10] MEDS: IPRATROPIUM 0.5 MG/ALBUTEROL SULFATE 2.5 MG AMPUL.NEB 3 ML INHALATION ×2 (07:06→13:33)
--- NOTE | 2023-10-10 07:16 | PM.PNCARD ---
Progress Note: A&P Assessment and Plan (1) Nonsustained ventricular tachycardia: Code(s): I47.29 - Other ventricular tachycardia Status: Acute Assessment and Plan: Had 18 beat run and 5 beat run. On Amiodarone 200 mg BID. Monitor QT interval. Increase Metoprolol Succinate 25 mg daily. (2) Transaminitis: Code(s): R74.01 - Elevation of levels of liver transaminase levels Status: Acute Assessment and Plan: Gradually improving. Could be due to passive congestion of liver. (3) PAD (peripheral artery disease): Code(s): I73.9 - Peripheral vascular disease, unspecified Status: Acute Assessment and Plan: Stable and mild. (4) Mixed hyperlipidemia: Code(s): E78.2 - Mixed hyperlipidemia Status: Acute Assessment and Plan: Normally on Rosuvastatin. On hold due to transaminitis. (5) Chronic obstructive pulmonary disease: Qualifiers: COPD type: unspecified COPD Qualified Code(s): J44.9 - Chronic obstructive pulmonary disease, unspecified Code(s): J44.9 - Chronic obstructive pulmonary disease, unspecified Status: Acute (6) Combined systolic and diastolic congestive heart failure: Code(s): I50.40 - Unspecified combined systolic (congestive) and diastolic (congestive) heart failure Status: Acute Assessment and Plan: Acute systolic and diastolic heart failure. NTproBNP 5,140. Troponin normal. EKG without acute ST changes. 10/08/23 Echo: EF 15-20%, severe LVE, diastolic dysfunction (E/e' 18), mild RVE, mod RV systolic dysfunction, mod biatrial enlargement, mild MR/TR, RVSP 44 mmHg, trace pericardial effusion. 10/08/23 Lxiscan myoview stress test shows no ischemia. LH on 10/09/[address] Courtney shows minimal plaques. On Metoprolol. Start Jardiance 10 mg daily, Spironolactone 25 mg daily. On Entresto 24-26 mg BID. Change Lasix 40 mg PO daily. Monitor electrolytes and renal function. Life Vest in place to prevent sudden cardiac arrest. September d/c home from cardiology standpoint and f/u with me in 1 week. Subjective Date/time seen: 10/10/23 07:16 Interval history: He feels much better with no sob. No chest pain. Exam Const: General: cooperative, healthy appearing and comfortable Orientation/consciousness: oriented to person, oriented to place and oriented to time Resp: Auscultation: no crackles, no rales, no rhonchi, no wheezes and diminished lung sounds Cardio: Rate: regular rate Rhythm: regular rhythm Heart sounds: no murmurs Peripheral pulses: dorsalis pedis present Neuro: General: oriented to person, oriented to place and oriented to time Extrem: Right lower extremity: no edema Left lower extremity: no edema Objective Data Vital Signs Vital Signs: Vital Signs - 24 hr 10/09/23 07:53 10/09/23 07:54 10/09/23 08:12 Temperature Pulse Rate 106 H 105 H Respiratory Rate 18 18 Blood Pressure Pulse Oximetry 93 Oxygen Delivery Room Air 10/09/23 08:00 10/09/23 09:00 10/09/23 09:00 Temperature Pulse Rate 106 H 106 H Respiratory Rate Blood Pressure Pulse Oximetry Oxygen Delivery Room Air 10/09/23 08:00 10/09/23 11:45 10/09/23 12:15 Temperature Pulse Rate 105 H 109 H 108 H Respiratory Rate 12 12 Blood Pressure 118/92 H 115/82 Pulse Oximetry 91 94 Oxygen Delivery Room Air Room Air 10/09/23 12:30 10/09/23 13:15 10/09/23 11:39 Temperature Pulse Rate 107 H 109 H 108 H Respiratory Rate 16 16 16 Blood Pressure 115/94 H 115/85 120/88 Pulse Oximetry 94 96 92 Oxygen Delivery Room Air Room Air Room Air 10/09/23 12:00 10/09/23 12:45 10/09/23 13:54 Temperature Pulse Rate 108 H 109 H 108 H Respiratory Rate 12 16 Blood Pressure 121/89 123/83 Pulse Oximetry 93 91 Oxygen Delivery Room Air Room Air 10/09/23 13:55 10/09/23 13:45 10/09/23 14:45 Temperature 98.4 F 98.9 F Pulse Rate 104 H 110 H 112 H Respiratory Rate 18 20 20 Blood Pressure 110/57 L 10
[2023-10-10] MEDS: EMPAGLIFLOZIN 10 MG TABLET PO (09:15)
[2023-10-10] MEDS: AMIODARONE HCL 200 MG TABLET PO (09:15)
[2023-10-10] MEDS: FUROSEMIDE 40 MG TABLET PO (09:16)
[2023-10-10] MEDS: PARoxetine 10 MG TABLET PO (09:16)
[2023-10-10] MEDS: SPIRONOLACTONE 25 MG TABLET PO (09:16)
[2023-10-10] MEDS: METOPROLOL SUCCINATE EXT REL 25 MG TABCR PO (09:16)
[2023-10-10] MEDS: GABAPENTIN 300 MG CAPSULE 600 MG PO (09:16)
[2023-10-10] MEDS: MULTIVITAMINS THERAPEUTIC TAB (*BKC) 1 TABLET PO (09:16)
[2023-10-10] MEDS: SACUBITRIL/VALSARTAN 24-26 MG TABLET 1 TAB PO (09:16)
--- NOTE | 2023-10-10 14:03 | PM.DS ---
DS: Admitting Diagnosis Discharge Date 10/10/2023 Admitting Diagnosis Hypoxia Acute HFrEF Nonsustained Vtach Fall Transaminitis COPD DS: Discharge Diagnosis Discharge Diagnosis (1) Hypoxia: Code(s): R09.02 - Hypoxemia Status: Acute (2) Acute HFrEF (heart failure with reduced ejection fraction): Code(s): I50.21 - Acute systolic (congestive) heart failure Status: Acute (3) Nonsustained ventricular tachycardia: Code(s): I47.29 - Other ventricular tachycardia Status: Acute (4) Fall: Code(s): W19.XXXA - Unspecified fall, initial encounter Status: Acute (5) Transaminitis: Code(s): R74.01 - Elevation of levels of liver transaminase levels Status: Acute (6) Chronic obstructive pulmonary disease: Qualifiers: COPD type: unspecified COPD Qualified Code(s): J44.9 - Chronic obstructive pulmonary disease, unspecified Code(s): J44.9 - Chronic obstructive pulmonary disease, unspecified Status: Acute DS: Summary Hospital Course Reason for hospitalization: Hypoxia Acute HFrEF Nonsustained Vtach Fall Transaminitis COPD Hospital Course: 68-year-old male with history of hepatitis-C which was treated many years ago, gastroesophageal reflux disease, duodenal ulcer, achalasia, anemia, seizures, bipolar disorder, anxiety, and posttraumatic stress disorder who presented to the emergency department for evaluation of shortness of breath and a fall. Imaging negative for acute fractures secondary to fall. He was noted to be hypoxic at his PCP office and was sent to the ED. Labs revealed an elevated BNP and chest XR concerning for CHF. Echo showed LVEF 15-20%. Cardiology consulted. Patient started on started on Jardiance 10 mg daily, spironolactone 25 mg daily, entresto 24/26 mg BID, and lasix 40 mg daily. Lexiscan showed a small area of mild infarct involving apical to mid inferior wall of left ventricle.Global hypokinesis with left ventricular ejection fraction measuring 27%. Cardiac catheterization 10/[address] Courtney: left main coronary artery w/o any significant obstructive disease, mid LAD has mild disease, remainder of the LAD and the diagonal branches have mild luminal irregularities without any significant obstructive angiographic disease, left circumflex artery and the main marginal branches have mild luminal irregularities without any significant obstructive angiographic disease, mid portion of the RCA has mild diffuse disease. Patient had multiple episodes of asymptomatic nonsustained ventricular tachycardia overnight. Patient started on amiodarone 200 mg BID and metoprolol 25 mg daily. Lifevest placed prior to discharge with teaching. Prior to discharge patient was able to ambulate around the room and out the [place] without difficulties. He denied feeling off balance, weakness, lightheadedness, and dizziness. Patient discharged home with family in stable condition. He is to take his new medications as prescribed and follow up with cardiology as scheduled. He will follow up with his PCP in 1 week to discuss recent admission and new medications. Status at Discharge Functional status at discharge: independent ambulation Time Spent with Patient Time attestation: Total time spent providing and/or coordinating discharge services: Time spent: Greater than 30 minutes Exam Narrative: AF HR 109 RR 16 SpO2 94 BP 110/75 General: male in no acute respiratory distress who is nontoxic appearing, lying semi recumbent in bed. HEENT: Normocephalic. Swelling of the left lip has improved, abrasions noted to the jaw. Pupils equal round reactive to light. Extraocular movement intact. Sclera clear and anicteric. No facial asymmetry. Chest: Lungs are clear to auscultation bilaterally. No wheezes or crackles. CV: Heart was tachycardia with regular rhythm. S1/S2. No murmurs, gallops, or rubs. Abd: Abdomen was soft. Nontender. Nondistended. Positive bowel sounds. No organomegaly or kendall
== END 2023-10-10 14:30 | disposition home or self-care (01) | DRG 287 ==
LOC: ANHED 16:42 → ANH3MEDSUR 17:16
PROVIDERS: Internal Medicine; Physician Assistant; Student in an Organized Health Care Education/Training Program; Admitting Provider Family Medicine; Emergency Provider Emergency Medicine; PCP Family Medicine; Visit Provider Internal Medicine
PROC: 4A023N7 Measurement of Cardiac Sampling and Pressure, Left Heart, Percutaneous Approach (ICD-10-PCS; CPT 93452; principal; 2023-10-09 09:00)
DX: I50.41 Acute combined systolic (congestive) and diastolic (congestive) heart failure (principal); I47.29 Other ventricular tachycardia; I25.10 Atherosclerotic heart disease of native coronary artery without angina pectoris; I27.20 Pulmonary hypertension, unspecified; I73.9 Peripheral vascular disease, unspecified; J44.9 Chronic obstructive pulmonary disease, unspecified; E03.9 Hypothyroidism, unspecified; E78.2 Mixed hyperlipidemia; K21.9 Gastro-esophageal reflux disease without esophagitis; K22.0 Achalasia of cardia; R56.9 Unspecified convulsions; R74.01 Elevation of levels of liver transaminase levels; R68.84 Jaw pain; G93.89 Other specified disorders of brain; F41.9 Anxiety disorder, unspecified; F43.10 Post-traumatic stress disorder, unspecified; F32.9 Major depressive disorder, single episode, unspecified; W19.XXXA Unspecified fall, initial encounter; Z20.822 Contact with and (suspected) exposure to COVID-19; Z87.891 Personal history of nicotine dependence; Z86.19 Personal history of other infectious and parasitic diseases; Z87.11 Personal history of peptic ulcer disease; Z79.899 Other long term (current) drug therapy
CPT/HCPCS: 36415; 70450; 70486; 71045; 76705; 78452; 78582; 80053; 80074; 83735; 83880; 84443; 84484; 85025; 85027; 85610; 85730; 86803; 87522; 87637; 93005; 93017; 93458; 93970; 94640; 94762; 96374; 96375; 96376; 97161; 99285; A9270; A9502; A9540; A9558; C1769; C1887; C1894; C8929; G0378; J1644; J1940; J2250; J2305; J2785; J3010; J7040; Q9957

== ENCOUNTER 2023-11-10 08:26 | Outpatient (CLI) | payer MEDICARE, SELFPAY ==
--- NOTE | 2023-11-10 08:45 | ECHO_ITS ---
Patient Info Name: Edward Carnes Age: 68 years : 1955 Gender: Male Ht: 69 in Wt: 208 lbs BSA: 2.17 m2 HR: 82 bpm BP: 107 / 81 mmHg Technical Quality: Good Exam Date: 11/10/2023 8:50 AM Exam Location: Echo Lab Patient Status: Outpatient Admit Date: 11/10/2023 Staff Ordering Physician: Desmond Thomas DO Membership Manager: Marina Sales RDCS Attending Provider: Desmond Thomas DO Referring Physician: William CARRASCO; Exam Type: CA echo dop color flow w con Study Info Indications R06.00 - Dyspnea, unspecified Complete two-dimensional, color flow and Doppler transthoracic echocardiogram is performed with contrast to opacify the left ventricle and to improve the deliniation of the left ventricle endocardial borders. Contrast/Agitated Saline Contrast/Ag. Saline: Definity Amount: 2.00 ml Administered By: Marian Sales RDCS New IV Access: Dorsum of Hand and Left Site Condition: No extravasation, Site dressing applied and IV removed Summary 1. Definity contrast administered improved wall motion interpretation. 2. Left ventricular chamber dimension is severely enlarged. 3. Left ventricular systolic function is severely globally reduced, estimated at 15-20%. 4. The left ventricular diastolic function is grade III diastolic dysfunction. 5. E/e' 20 is elevated. 6. Global longitudinal strain is abnormal at -6.6%. 7. Right ventricular systolic function is mildly reduced and with abnormal TAPSE 1.6 cm. 8. Left atrial chamber dimension is moderately enlarged. 9. Right atrial chamber dimension is mildly enlarged. 10. There is mild aortic valve sclerosis. 11. There is moderate mitral valve regurgitation. 12. There is mild tricuspid valve regurgitation. 13. No pulmonary hypertension, estimated pulmonary arterial systolic pressure is 35 mmHg. Left Ventricle E/e' 20 is elevated. Global longitudinal strain is abnormal at -6.6%. Left ventricular systolic function is severely globally reduced, estimated at 15-20%. Definity contrast administered improved wall motion interpretation. Left ventricular chamber dimension is severely enlarged. The left ventricular diastolic function is grade III diastolic dysfunction. Right Ventricle Right ventricular systolic function is mildly reduced and with abnormal TAPSE 1.6 cm. Right ventricular chamber dimension is normal. Left Atria Left atrial chamber dimension is moderately enlarged. Right Atria Right atrial chamber dimension is mildly enlarged. Aortic Valve The aortic valve is trileaflet. There is mild aortic valve sclerosis. There is no aortic valve stenosis. There is no aortic valve regurgitation. Pulmonic Valve There is no pulmonic regurgitation. Mitral Valve There is no mitral valve stenosis. There is moderate mitral valve regurgitation. Tricuspid Valve There is mild tricuspid valve regurgitation. No pulmonary hypertension, estimated pulmonary arterial systolic pressure is 35 mmHg. Pericardium/Pleural There is no pericardial effusion. Inferior Vena Cava Normal inferior vena cava with >50% collapse upon inspiration consistent with normal right atrial pressure, 5 mmHg. Aorta The aortic root size at the sinus of Valsalva is normal. Left Ventricular Outflow Tract Name Value Normal LVOT 2D LVOT Diameter
[2023-11-10] MEDS: PERFLUTREN LIPID MICROSPHERES 1.5 ML VIAL DILUTED TO 10 ML TOTAL VOLUME IV PUSH (09:40)
--- NOTE | 2023-11-10 09:55 | IVDEFINITY ---
Prior to administration of IV Definity the patient was educated on the risks and benefits of the imaging enhancing agent including potential adverse side effects. The patient verbalized understanding. Allergies were verified. No exclusion criteria were identified and at least one of the following inclusion criteria were met: 1) physician request, 2) patient technically difficult to image (per the [place] [employer]chocardi[employer] guidelines of two or more segments not discernable within the apical view), or 3) questionable left ventricular function. ?
== END 2023-11-10 08:27 | disposition home or self-care (01) ==
PROVIDERS: PCP Family Medicine; Visit Provider Internal Medicine Cardiovascular Disease
DX: I51.89 Other ill-defined heart diseases (principal); I35.8 Other nonrheumatic aortic valve disorders; I34.0 Nonrheumatic mitral (valve) insufficiency; I36.1 Nonrheumatic tricuspid (valve) insufficiency
CPT/HCPCS: C8929; Q9957

== ENCOUNTER 2023-12-19 09:06 | Outpatient (CLI) | payer MEDICARE, SELFPAY ==
[2023-12-19 10:41] LABS: Anion Gap 11 mmol/L (4-12); Blood Urea Nitrogen 24 mg/dL (9-20); Calcium 9.6 mg/dL (8.4-10.2); Carbon Dioxide 27 mmol/L (22-30); Chloride 98 mmol/L (98-107); Estimated Glomerular Filt Rate > 60; Glucose 91 mg/dL (65-110); Sodium 136 mmol/L (137-145)
[2023-12-21 06:19] LABS: Protein, Total 7.6 g/dL (6.1-8.1)
[2023-12-22 13:33] LABS: Kappa\\Lambda Light Chains 1.59 (0.26-1.65); Lambda Light Chain 22.2 mg/L (5.7-26.3)
[2023-12-22 15:28] LABS: Albumin 4.4 g/dL (3.8-4.8); Alpha 1 Globulin 0.2 g/dL (0.2-0.3); Alpha 2 Globulin 0.7 g/dL (0.5-0.9); Beta 1 Globulin 0.5 g/dL (0.4-0.6); Gamma Globulin 1.2 g/dL (0.8-1.7)
== END 2023-12-19 09:07 | disposition home or self-care (01) ==
PROVIDERS: PCP Family Medicine
DX: R06.00 Dyspnea, unspecified (principal); I42.0 Dilated cardiomyopathy; Z79.899 Other long term (current) drug therapy
CPT/HCPCS: 36415; 80048; 83883; 84155; 84165; 86335

== ENCOUNTER 2024-02-23 12:36 | Outpatient (CLI) | payer MEDICARE, SELFPAY ==
--- NOTE | 2024-02-23 12:40 | ECHO_ITS ---
Patient Info Name: Edward Carnes Age: 68 years : 1955 Gender: Male Ht: 69 in Wt: 205 lbs BSA: 2.15 m2 HR: 60 bpm BP: 111 / 88 mmHg Heart Rhythm: Sinus Rhythm Technical Quality: Good Exam Date: 02/23/2024 12:58 PM Exam Location: Echo Lab Patient Status: Outpatient Admit Date: 02/23/2024 Staff Ordering Physician: Desmond Thomas DO C Software Developer: Davonte Floyd RDCS Attending Provider: Desmond Thomas DO Referring Physician: William CARRASCO; Exam Type: CA echo doppler color flow Study Info Indications - unspecified combined systolic and diastolic heart failure Complete two-dimensional, color flow and Doppler transthoracic echocardiogram is performed. Summary 1. Complete two-dimensional, color flow and Doppler transthoracic echocardiogram is performed. 2. Left ventricular chamber dimension is normal. 3. Basal to mid posterior wall is severely hypokinetic. 4. Left ventricular systolic function is moderately reduced, estimated at 40-45%. 5. The left ventricular diastolic function is grade I diastolic dysfunction. 6. E/e' 8 is minimally elevated. 7. There is trace mitral valve regurgitation. 8. No pulmonary hypertension, estimated pulmonary arterial systolic pressure is 28 mmHg. Left Ventricle Basal to mid posterior wall is severely hypokinetic. E/e' 8 is minimally elevated. Left ventricular chamber dimension is normal. Left ventricular systolic function is moderately reduced, estimated at 40-45%. The left ventricular diastolic function is grade I diastolic dysfunction. Right Ventricle Right ventricular systolic function is normal and with normal TAPSE 2.1 cm. Right ventricular chamber dimension is normal. Left Atria Left atrial chamber dimension is normal. Right Atria Right atrial chamber dimension is normal. Aortic Valve The aortic valve is trileaflet. There is no aortic valve stenosis. There is no aortic valve regurgitation. Pulmonic Valve There is no pulmonic regurgitation. Mitral Valve There is no mitral valve stenosis. There is trace mitral valve regurgitation. Tricuspid Valve There is no tricuspid valve regurgitation. No pulmonary hypertension, estimated pulmonary arterial systolic pressure is 28 mmHg. Pericardium/Pleural There is no pericardial effusion. Inferior Vena Cava Normal inferior vena cava with >50% collapse upon inspiration consistent with normal right atrial pressure, 5 mmHg. Aorta The aortic root size at the sinus of Valsalva is normal. Left Ventricular Outflow Tract Name Value Normal LVOT 2D LVOT Diameter 2.1 cm LVOT Doppler LVOT Peak Gradient 3 mmHg LVOT Mean Gradient 2 mmHg LVOT VTI 15 cm LVOT VTI/AV VTI Ratio 0.7 LVOT Stroke Volume 51 ml LVOT CO 3.5 l/min LVOT CI 1.6 l/min/m2 Mitral Valve Name Value Normal MV Doppler
== END 2024-02-23 12:37 | disposition home or self-care (01) ==
LOC: ANHCARD 12:37
PROVIDERS: PCP Family Medicine; Visit Provider Internal Medicine Cardiovascular Disease
DX: I51.89 Other ill-defined heart diseases (principal)
CPT/HCPCS: 93306

== ENCOUNTER 2024-03-12 09:49 | Outpatient (CLI) | payer MEDICARE, SELFPAY ==
--- NOTE | ~2024-03-12 | XR_ITS ---
EXAMINATION: XR lumbar spine 2-3V DATE: 03/12/2024 10:21 INDICATION: Low back pain. TECHNIQUE: 3 views of lumbar spine were obtained. COMPARISON: None. FINDINGS: There is 6 degrees dextrocurvature of thoracolumbar spine. Vertebral body heights are leona l. There is moderately decreased disc height at L2-L3 and mildly decreased disc height at L3-L4 and L 4-L5. There is multilevel facet joint osteoarthritis, severe in lower lumbar spine. IMPRESSION: 1. Moderate lumbar spondylosis. Reviewed, dictated and finalized at location B.
[2024-03-12 11:29] LABS: Alanine Aminotransferase 26 U/L (6-50); Albumin Level 4.8 g/dL (3.5-5.1); Alkaline Phosphatase 58 U/L (38-126); Anion Gap 8 mmol/L (4-12); Aspartate Amino Transferase 32 U/L (17-59); Bilirubin,Total 0.8 mg/dL (0.2-1.3); Blood Urea Nitrogen 23 mg/dL (9-20); Calcium 9.4 mg/dL (8.4-10.2); Carbon Dioxide 31 mmol/L (22-30); Chloride 99 mmol/L (98-107); Cholesterol 218 mg/dL (0-200); Estimated Glomerular Filt Rate > 60; Glucose 98 mg/dL (65-110); HDL Direct 34 mg/dL; Potassium 4.8 mmol/L (3.4-5.0); Sodium 138 mmol/L (137-145); Triglycerides 247 mg/dL (<150)
[2024-03-12 11:40] LABS: LDL Cholesterol Direct 145 mg/dL
== END 2024-03-12 09:50 | disposition home or self-care (01) ==
PROVIDERS: PCP Family Medicine; Visit Provider Internal Medicine Cardiovascular Disease
DX: E78.2 Mixed hyperlipidemia (principal); M47.896 Other spondylosis, lumbar region
CPT/HCPCS: 36415; 72100; 80053; 80061

== ENCOUNTER 2024-05-24 10:12 | Outpatient (CLI) | payer MEDICARE, SELFPAY ==
[2024-05-24 11:01] LABS: Hematocrit 44.9 % (42.0-52.0); Hemoglobin 14.4 g/dL (14.0-18.0); Mean Corpuscular HGB Conc 32.1 g/dl (32-36); Mean Corpuscular Volume 90.3 fl (80-100); Mean Platelet Volume 9.3 fl (7.4-10.4); Platelet Count Result 282 k/mm3 (150-375); Red Blood Count 4.97 M/mm3 (4.6-6.20); Red Cell Distribution Width 13.4 % (11.5-14.5); White Blood Count 11.8 K/mm3 (4.5-10.0)
[2024-05-24 11:11] LABS: Hemoglobin A1C 6.3 % (<5.7)
[2024-05-24 11:15] LABS: Alanine Aminotransferase 28 U/L (6-50); Albumin Level 4.4 g/dL (3.5-5.1); Alkaline Phosphatase 70 U/L (38-126); Anion Gap 7 mmol/L (4-12); Aspartate Amino Transferase 27 U/L (17-59); Bilirubin,Total 0.6 mg/dL (0.2-1.3); Blood Urea Nitrogen 22 mg/dL (9-20); Calcium 8.9 mg/dL (8.4-10.2); Carbon Dioxide 32 mmol/L (22-30); Chloride 96 mmol/L (98-107); Cholesterol 142 mg/dL (0-200); Estimated Glomerular Filt Rate > 60; Glucose 98 mg/dL (65-110); HDL Direct 35 mg/dL; Potassium 4.4 mmol/L (3.4-5.0); Sodium 135 mmol/L (137-145); Triglycerides 119 mg/dL (<150)
[2024-05-24 11:27] LABS: LDL Cholesterol Direct 77 mg/dL
== END 2024-05-24 10:13 | disposition home or self-care (01) ==
LOC: ANHLAB 10:15
PROVIDERS: PCP Family Medicine; Referring Provider Family Medicine; Visit Provider Internal Medicine Cardiovascular Disease
DX: I50.40 Unspecified combined systolic (congestive) and diastolic (congestive) heart failure (principal); E11.9 Type 2 diabetes mellitus without complications; I73.9 Peripheral vascular disease, unspecified; D64.9 Anemia, unspecified; F43.10 Post-traumatic stress disorder, unspecified; E78.2 Mixed hyperlipidemia
CPT/HCPCS: 36415; 80053; 80061; 83036; 85027

== ENCOUNTER 2024-09-24 10:10 | Outpatient (CLI) | payer MEDICARE, SELFPAY ==
--- OUTSIDE RECORDS SUMMARY | 2024-09-24 10:17 | XMS_ITS | Referral Summary ---
Author Organization [facility] [address] [place] [address] Care Team Providers Care Research Center Director Name Role Phone Luiz Flowers MD Primary Care Provider Allergies No known active allergies Medications amiodarone (PACERONE) 200 mg tablet 4 Active gabapentin (NEURONTIN) 300 mg capsule 3 (three) times a day 4 Active furosemide (LASIX) 40 mg tablet 1 tablet (40 mg total) 4 Active LORazepam (ATIVAN) 2 mg tablet 1 tablet (2 mg total) every 8 (eight) hours as needed 4 Active nortriptyline (PAMELOR) 25 mg capsule Oral 4 Active spironolactone (ALDACTONE) 25 mg tablet 4 Active Jardiance 10 mg tablet 4 Active albuterol HFA (PROVENTIL HFA,VENTOLIN HFA,PROAIR HFA) 90 mcg/actuation inhaler [address] (VOLTAREN) 75 mg EC tablet Oral 4 Active Advair HFA 230-21 mcg/actuation inhaler 4 Active ferrous sulfate 325 mg (65 mg of elemental iron) tabletIndicatio ns:Iron Deficiency Anemia Take 1 tablet (65 mg of elemental iron total) by mouth 3 (three) times a day with meals Active sacubitriL-vals clive (ENTRESTO) 49-51 mg tabletIndicatio ns:chronic heart failure Take 1 tablet by mouth 2 (two) times a day 60 tablet 11 4 Active metoprolol XL (TOPROL-XL) 50 mg extended release tablet Take 1 tablet (50 mg total) by mouth daily 30 tablet 11 4 Active Active Problems No known active problems Social History Tobacco Use Types Packs/Day Years Used Date Smoking Tobacco: Former Tobacco Cessation:Counseling Given: Not Answered Sex and Gender Information Value Date Recorded Sex Assigned at Not on file Legal Sex Male 1:49 AM [employer] Gender Identity Not on file Sexual Orientation Not on file Last Filed Vital Signs Vital Sign Reading Time Taken Comments Blood Pressure 98/67 11/19/2023 3:15 PM CDT Pulse 74 11/19/2023 3:15 PM CDT Temperature - - Respiratory Rate - - Oxygen Saturation 96% 11/19/2023 3:15 PM CDT Inhaled Oxygen Concentration - - Weight 87.5 kg (193 lb) 11/19/2023 3:15 PM CDT Height 175.3 cm (5' 9 ) 11/19/2023 3:15 PM CDT Body Mass Index 28.5 11/19/2023 3:15 PM CDT Plan of Treatment Not on file Insurance [facility] MEDICARE ADVANTAGE [facility] MEDICARE ADVANTAGE Care Teams Research Center Director Relationship Specialty Start Date End Date Luiz Flowers MD [address] [facility] [address] [place] [address] PCP - General Internal Medicine 09/16/17
--- OUTSIDE RECORDS SUMMARY | 2024-09-24 10:17 | XMS_ITS | Patient Health Record ---
Author Organization [facility] [employer] Address [address] [facility] [address] [place] [address] Care Team Providers Care Sheep Boner Name Role Phone Daniel Keyes MD Primary Care Provider Jamir Pennington Unavailable [phone] Migration, Provider Unavailable Unavailable Allergies No Known Allergies Results Component Value Reference Range Notes UDT Reviewed date:08/27/2024 02:00:43 PM Interpretation: Performing Lab: Notes/Report: THC POS 0 - 50 ng/ml Cocaine NEG 0 - 300 ng/ml Amphetamine NEG 0 - 1000 ng/ml Buprenorphine (BUP) NEG 0 - 10 ng/ml Secobarbital (Bar) NEG 0 - 300 ng/ml Oxazepam (BZO) POS 0 - 300 ng/ml 2-kycbwwtesb-0,3-ecfrglrj-1,3-diphenylpyrrolidine (TERRI P) NEG 0 - 300 ng/ml Methamphetamine (MET) NEG 0 - 1000 ng/ml Methylenedioxymethamphetamine (MDMA) NEG 0 - 500 ng/ml Morphine (MOP 300/[id number]) NEG 0 - 300 ng/ml Methadone (MTD) NEG 0 - 300 ng/ml Phencyclidine (PCP) NEG 0 - 25 ng/ml Nortriptyline (TCA) NEG 0 - 1000 ng/ml Oxycodone NEG 0 - 300 ng/ml x NEG 0 - 300 ng/ml UDT Reviewed date:03/09/2024 03:54:26 PM Interpretation: Performing Lab: Notes/Report: THC P 0 - 50 ng/ml Cocaine N 0 - 300 ng/ml Amphetamine N 0 - 1000 ng/ml Buprenorphine (BUP) N 0 - 10 ng/ml Secobarbital (Bar) N 0 - 300 ng/ml Oxazepam (BZO) P 0 - 300 ng/ml 3-cioddzmugw-5,7-elehobft-9,3-diphenylpyrrolidine (TERRI P) N 0 - 300 ng/ml Methamphetamine (MET) N 0 - 1000 ng/ml Methylenedioxymethamphetamine (MDMA) N 0 - 500 ng/ml Morphine (MOP 300/[id number]) N 0 - 300 ng/ml Methadone (MTD) N 0 - 300 ng/ml Phencyclidine (PCP) N 0 - 25 ng/ml Nortriptyline (TCA) N 0 - 1000 ng/ml Oxycodone N 0 - 300 ng/ml x N 0 - 300 ng/ml Reason For Referral No Information Medications Medication SIG (Take, Route, Frequency, Duration) Notes Start Date End Date Status Nortriptyline HCl 25 MG 3 capsules at be dtime Oral Once a day for 30 days Active Metoprolol Succinate ER 50 MG Oral for 30 Days Active LORazepam 2 MG 1 tablet Oral twice a day for 30 days 09/20/2024 Active Entresto 24-26 MG Oral for 60 Days Active ProAir HFA 108 (90 Base) MCG/ACT Inhalation 09/25/2023 Active Jardiance 10 MG Oral for 30 Days Active Furosemide 40 MG Oral for 90 Days Active Gabapentin 300 MG 1 capsule every morning, 2 capsules at bedtime Oral Once a day for 30 days Active Entresto 24-26 MG Oral for 60 Days Not-Taking Entresto 24-26 MG Oral for 60 Days Not-Taking Immunizations Vaccine Route Administration Date Status Comme nts Influenza virus vaccine, quadrivalent (IIV4), split virus, 0.25 mL dosage Unknown 02/06/2015 Administered Influenza virus vaccine, quadrivalent (IIV4), split virus, 0.25 mL dosage Unknown 03/09/2019 Administered Influenza virus vaccine, quadrivalent (IIV4), split virus, 0.25 mL dosage Unknown 01/19/2020 Administered Influenza, unspecified formulation Unknown 01/31/2012 A dministered Influenza, unspecified formulation Unknown 02/08/2013 A dministered Influenza, unspecified formulation Unknown 02/14/2014 A dministered Novel [id number], preservative free Unknown 02/13/2017 Administered Novel [id number]-B3V1-57, preservative free Unknown 01/31/2018 Administered Novel Nsxcyvshg-I3S0-35, preservative free Unknown 01/19/2020 Administered Pfizer [employer] Covid-19 Vac cine 2nd dose Unknown 07/13/2020 Administered Pfizer [employer] Covid-19 Vac cine 2nd dose Unknown 08/03/2020 Administered Pfizer [employer] Covid-19 Vac cine 2nd dose Unknown 02/16/2021 Administered Pfizer [employer] Covid-19 Vac cine 2nd dose Unknown 10/06/2021 Administered Pneumococcal conjugate PCV 13 Unknown 02/14/2014 Admini stered Pneumococcal conjugate PCV 13 Unknown 04/11/2015 Admini stered Pneumococcal polysaccharide PPV23 Unknown 04/06/2014 Ad ministered Social History Tobacco Use: Social History Observation Description Date Details (start date - stop date) Former Smoker NA - NA Sex Assigned At : Social History Observation Description Sex Assigned At Male Tobacco Control (Standard) Question Answer Notes Tobacco use: Former smoker How long has it been since you last smoked? Grea ter than 10 years Problems Problem Type SNOMED Code ICD Code Onset Dates Problem Status W/U Status Risk Notes Problem Severe recurrent major depression without psychotic features (37387978) Major depressive disorder, recurrent severe without 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) Active confirmed Problem Generalized anxiety disorder (07948092) Generalized anxiety disorder (F41.1) Active confirmed Problem Posttraumatic stress disorder (65426920) Post-traumatic stress disorder, chronic (F43.12) Active confirmed Vital Signs Heart Rate 90 /min 09/20/2024 Blood pressure diastolic 76 mm Hg 09/20/2024 Height-cm 175.26 cm 09/20/2024 Weight-kg 94.8 kg 09/20/2024 Height 69.00 in 09/20/2024 Blood pressure systolic 126 mm Hg 09/20/2024 Weight 209 lbs 09/20/2024 BMI 30.86 kg/m2 09/20/2024 Encounters Encounter Location Date Provider Diagnosis [facility] [place] [address] [place] [address] 09/25/2023 Jamir Herr Major depressive disorder, recurrent, mild F33.0 ; Post-traumatic stress disorder, chronic F43.12 and Generalized anxiety disorder F41.1 [facility] [employer] [facility] [address] [place] [address] 10/28/2023 Jamir Herr Generalized anxiety disorder F41.1 ; Post-traumatic stress disorder, chronic F43.12 and Major depressive disorder, recurrent severe without psychotic features F33.2 [facility] [employer] [facility] [address] [place] [address] 12/05/2023 Jamir Herr Generalized anxiety disorder F41.1 ; Post-traumatic stress disorder, chronic F43.12 and Major depressive disorder, recurrent severe without psychotic features F33.2 [facility] [employer] [facility] [address] [facility] [address] [place] [address] 12/30/2023 Jamir Herr Generalized anxiety disorder F41.1 ; Post-traumatic stress disorder, chronic F43.12 and Major depressive disorder, recurrent severe without psychotic features F33.2 [facility] [address] [facility] [address] [place] [address] 02/03/2024 Jamir Herr Generalized anxiety disorder F41.1 ; Post-traumatic stress disorder, chronic F43.12 and Major depressive disorder, recurrent severe without psychotic features F33.2 [facility] [employer] [facility] [address] [address] 03/09/2024 Jamir Herr Generalized anxiety disorder F41.1 ; Post-traumatic stress disorder, chronic F43.12 and Major depressive disorder, recurrent severe without psychotic features F33.2 [facility] [address] [address] 04/15/2024 Jamir Herr Hypertension, unspecified type 401.9 ; Generalized anxiety disorder F41.1 ; Post-traumatic stress disorder, chronic F43.12 and Major depressive disorder, recurrent severe without psychotic features F33.2 [facility] [address] [place] [address] 05/24/2024 Ajmir Herr Generalized anxiety disorder F41.1 ; Post-traumatic stress disorder, chronic F43.12 and Major depressive disorder, recurrent severe without psychotic features F33.2 [facility] [employer] [facility] [address] [facility] [address] [place] [address] 06/30/2024 Jamir Herr Generalized anxiety disorder F41.1 ; Post-traumatic stress disorder, chronic F43.12 and Major depressive disorder, recurrent severe without psychotic features F33.2 [facility] [employer] [address] [place] [address] 07/28/2024 Jamir Herr Major depressive disorder, recurrent severe without psychotic features F33.2 ; Generalized anxiety disorder F41.1 ; Post-traumatic stress disorder, chronic F43.12 and Encounter for screening for cardiovascular disorders Z13.6 [facility], [place] [address] [place] [address] 08/27/2024 Jamir Herr Encounter for screening for depression Z13.31 ; Encounter for screening for cardiovascular disorders Z13.6 ; Major depressive disorder, recurrent severe without psychotic features F33.2 ; Generalized anxiety disorder F41.1 and Post-traumatic stress disorder, chronic F43.12 [facility], [place] [address] [place] [address] 09/20/2024 Jamir Herr Encounter for screening for cardiovascular disorders Z13.6 ; Encounter for screening for depression Z13.31 ; Major depressive disorder, recurrent severe without psychotic features F33.2 ; Generalized anxiety disorder F41.1 and Post-traumatic stress disorder, chronic F43.12 [place] [address] [facility] [address] [place] [address] 09/27/2023 Provider Migration [facility], [place] [address] [facility] [address] [place] [address] 09/28/2023 Provider Migration [facility], [place] [address] [facility] [address] [place] [address] 03/22/2024 Jamir Herr Generalized anxiety disorder F41.[address] [place] [address] 04/06/2024 Jamir Herr [facility], [place] [address] [place] [address] 06/30/2024 Jamir Herr [facility], [place] [address] [place] [address] 06/21/2024 Jamir Herr [facility], [place] [address] [place] [address] 06/22/2024 Jamir Herr Assessments Encounter Date Diagnosis (ICD Code) Assessment Notes Treatment Notes Treatment Clinical Notes Section Notes 09/25/2023 Major depressive disorder, recurrent, mild (ICD-10 - F33.0) 09/25/2023 Generalized anxiety disorder (ICD-10 - F41.1) 09/25/2023 Post-traumatic stress disorder, chronic (ICD-10 - F43.12) 10/28/2023 Generalized anxiety disorder (ICD-10 - F41.1) he has persistent depression, anxiety, insomnia he does not want medication change 10/28/2023 Post-traumatic stress disorder, chronic (ICD-10 - F43.12) he has persistent depression, anxiety, insomnia he does not want medication change 12/05/2023 Generalized anxiety disorder (ICD-10 - F41.1) he has persistent depression, anxiety, insomnia he does not want medication change. he has persistent depression, anxiety, insomnia he does not want medication change 1. Cardiac issues: - Patient reports undergoing various tests, including echograms and cardiograms. - Scheduled for an MRI on the heart on December 15. - Patient's heart is functioning at 15%, significantly lower than the expected 65% for his age. - Possible defibrillator implantation in the future, but patient is not interested in surgery. Plan: - Continue monitoring cardiac function and follow up with cardiology appointments. - Encourage patient to attend scheduled MRI appointment. - Discuss potential benefits and risks of defibrillator implantation with the patient. 2. Anxiety: - Patient is currently on lorazepam 2 mg twice a day. Plan: - Continue lorazepam at the current dose. - Monitor for any changes in anxiety levels and adjust medication as needed. - Encourage patient to consider non-pharmacologi reed interventions for anxiety, such as therapy or relaxation techniques. 3. Neuropathic pain: - Patient is currently on gabapentin 300 mg, one in the morning and two at bedtime. Plan: - Continue gabapentin at the current dose. - Monitor for any changes in pain levels and adjust medication as needed. 4. Depression: - Patient is currently on 25 mg of an unspecified antidepressant. Plan: - Continue the current antidepressant at the current dose. - Monitor for any changes in mood and adjust medication as needed. - Encourage patient to consider non-pharmacologi reed interventions for depression, such as therapy or support groups. 5. Sleep disturbance: - Patient reports poor sleep quality and waking up at 3 AM. Plan: - Assess the potential impact of current medications on sleep quality. - Encourage patient to practice good sleep hygiene, such as maintaining a consistent sleep schedule and creating a relaxing bedtime routine. - Consider referral to a sleep specialist if sleep issues persist. 6. Social stressors: - Patient reports ongoing issues with Social Security and concerns about overpayment. - Relationship stress with spouse. Plan: - Encourage patient to seek legal advice or assistance with Social Security issues if needed. - Encourage open communication with spouse and consider couples therapy if appropriate. Follow-up: - Schedule a follow-up appointment in 4 weeks to monitor the patient's progress and adjust treatment plans as needed. 12/30/2023 Generalized anxiety disorder (ICD-10 - F41.1) 1. Sleep disturbances - Patient reports difficulty sleeping, waking up multiple times at night, and broomcorn press feeder awakenings. - Plan: Assess for potential causes of sleep disturbances, including anxiety or depression. Consider sleep hygiene recommendations and monitor for changes in sleep patterns. 2. Depression - Patient reports ongoing depression symptoms, with limited social and daily activities. - Plan: Continue current antidepressant medication. Monitor depression symptoms and consider adjustments to treatment if needed. Encourage the patient to engage in social activities and seek support from friends and family. 3. Anxiety - Patient is currently on medication for anxiety. - Plan: Continue medication as prescribed and monitor for changes in anxiety symptoms. Consider non-pharmacologi reed interventions, such as relaxation techniques or therapy, if needed. 02/03/2024 Generalized anxiety disorder (ICD-10 - F41.1) 1. Depression- cont Nortriptyline 25mg take 3 capsules at bedtme 2. Anxiety and stress - The patient reports being medicated for anxiety and stress but still experiences stressors in his life, including concerns about his family members' health. Plan: - Continue the current lorazepam and gabapentin regimen for anxiety management. - Consider referral to a mental health professional for additional support in managing stress and anxiety related to the patient's health and family concerns. 03/09/2024 Generalized anxiety disorder (ICD-10 - F41.1) 1. Anxiety: - Continue Lorazepam 2mg twice daily. -Continue Gabapentin 300mg, take 1 capsule in the morning and 2 capsules at bedtime. 2. Major Depressive Disorder Recurrent: - Continue Nortriptyline 25mg take 3 capsules at bedtime 3. Medications: - Patient is taking gabapentin, nortriptyline, and lorazepam as prescribed. -He has been on his current medications for over 10 years and does not want medication adjustments. - Patient reports difficulty refilling lorazepam due to controlled substance regulations and occasionally uses marijuana for anxiety relief. Plan: - Continue with current medications. - Monitor patient's use of marijuana and discuss potential risks and benefits. - Consider alternative anxiety management strategies if needed. 4. Follow-up: - Patient has a scheduled appointment for next month. Plan: - Continue to monitor patient's progress and address any new concerns during the next appointment. 04/15/2024 Hypertension, unspecified type (ICD9-CM - 401.9) 1. Major Depressive Disorder: - Patient reports ongoing worries related to Social Security issues and a recent increase in sadness due to the loss of his dog. - Patient mentioned not having anyone to talk to and experiencing anxiety. - Currently on Nortriptyline 25 mg, 3 tablets at bedtime. Plan: - Continue current medication regimen. - Encourage the patient to seek support from friends or family members. - Consider joining a support group or engaging in therapy to address concerns and feelings of isolation. 2. Generalized Anxiety Disorder: - Patient reports anxiety levels remain the same, with ongoing concerns about Social Security and other life stressors. - Currently taking Lorazepam twice a day as needed for anxiety. Plan: - Continue current medication regimen. - Encourage the patient to practice relaxation techniques, such as deep breathing exercises or mindfulness meditation. 3. Neuropathic Pain: - Patient is currently taking gabapentin for neuropathic pain management. - Current regimen: Gabapentin, 2 tablets at night and 1 tablet in the morning. Plan: - Continue current medication regimen. - Monitor the patient's pain levels and adjust the medication regimen as needed. Follow-up: - Schedule a follow-up appointment for May 18 to monitor the patient's progress and adjust treatment plans as needed. 05/24/2024 Generalized anxiety disorder (ICD-10 - F41.1) 06/30/2024 Generalized anxiety disorder (ICD-10 - F41.1) 07/28/2024 Major depressive disorder, recurrent severe without psychotic features (ICD-10 - F33.2) 08/27/2024 Encounter for screening for depression (ICD-10 - Z13.31) 09/20/2024 Encounter for screening for cardiovascular disorders (ICD-10 - Z13.6) 09/20/2024 Encounter for screening for depression (ICD-10 - Z13.31) 08/27/2024 Encounter for screening for cardiovascular disorders (ICD-10 - Z13.6) 07/28/2024 Generalized anxiety disorder (ICD-10 - F41.1) 07/28/2024 Post-traumatic stress disorder, chronic (ICD-10 - F43.12) supportive care 06/30/2024 Post-traumatic stress disorder, chronic (ICD-10 - F43.12) supportive care 05/24/2024 Post-traumatic stress disorder, chronic (ICD-10 - F43.12) supportive care 04/15/2024 Generalized anxiety disorder (ICD-10 - F41.1) 1. Major Depressive Disorder: - Patient reports ongoing worries related to Social Security issues and a recent increase in sadness due to the loss of his dog. - Patient mentioned not having anyone to talk to and experiencing anxiety. - Currently on Nortriptyline 25 mg, 3 tablets at bedtime. Plan: - Continue current medication regimen. - Encourage the patient to seek support from friends or family members. - Consider joining a support group or engaging in therapy to address concerns and feelings of isolation. 2. Generalized Anxiety Disorder: - Patient reports anxiety levels remain the same, with ongoing concerns about Social Security and other life stressors. - Currently taking Lorazepam twice a day as needed for anxiety. Plan: - Continue current medication regimen. - Encourage the patient to practice relaxation techniques, such as deep breathing exercises or mindfulness meditation. 3. Neuropathic Pain: - Patient is currently taking gabapentin for neuropathic pain management. - Current regimen: Gabapentin, 2 tablets at night and 1 tablet in the morning. Plan: - Continue current medication regimen. - Monitor the patient's pain levels and adjust the medication regimen as needed. Follow-up: - Schedule a follow-up appointment for May 18 to monitor the patient's progress and adjust treatment plans as needed. 03/09/2024 Post-traumatic stress disorder, chronic (ICD-10 - F43.12) 1. Anxiety: - Continue Lorazepam 2mg twice daily. -Continue Gabapentin 300mg, take 1 capsule in the morning and 2 capsules at bedtime. 2. Major Depressive Disorder Recurrent: - Continue Nortriptyline 25mg take 3 capsules at bedtime 3. Medications: - Patient is taking gabapentin, nortriptyline, and lorazepam as prescribed. -He has been on his current medications for over 10 years and does not want medication adjustments. - Patient reports difficulty refilling lorazepam due to controlled substance regulations and occasionally uses marijuana for anxiety relief. Plan: - Continue with current medications. - Monitor patient's use of marijuana and discuss potential risks and benefits. - Consider alternative anxiety management strategies if needed. 4. Follow-up: - Patient has a scheduled appointment for next month. Plan: - Continue to monitor patient's progress and address any new concerns during the next appointment. 03/22/2024 Generalized anxiety disorder (ICD-10 - F41.1) Electronic Prior Authorization was requested for LORazepam 2 MG Tablet. Provider can order medication once approval received. 02/03/2024 Post-traumatic stress disorder, chronic (ICD-10 - F43.12) 1. Depression- cont Nortriptyline 25mg take 3 capsules at bedtme 2. Anxiety and stress - The patient reports being medicated for anxiety and stress but still experiences stressors in his life, including concerns about his family members' health. Plan: - Continue the current lorazepam and gabapentin regimen for anxiety management. - Consider referral to a mental health professional for additional support in managing stress and anxiety related to the patient's health and family concerns. 12/30/2023 Post-traumatic stress disorder, chronic (ICD-10 - F43.12) 1. Sleep disturbances - Patient reports difficulty sleeping, waking up multiple times at night, and broomcorn press feeder awakenings. - Plan: Assess for potential causes of sleep disturbances, including anxiety or depression. Consider sleep hygiene recommendations and monitor for changes in sleep patterns. 2. Depression - Patient reports ongoing depression symptoms, with limited social and daily activities. - Plan: Continue current antidepressant medication. Monitor depression symptoms and consider adjustments to treatment if needed. Encourage the patient to engage in social activities and seek support from friends and family. 3. Anxiety - Patient is currently on medication for anxiety. - Plan: Continue medication as prescribed and monitor for changes in anxiety symptoms. Consider non-pharmacologi reed interventions, such as relaxation techniques or therapy, if needed. 12/05/2023 Post-traumatic stress disorder, chronic (ICD-10 - F43.12) he has persistent depression, anxiety, insomnia he does not want medication change. he has persistent depression, anxiety, insomnia he does not want medication change 1. Cardiac issues: - Patient reports undergoing various tests, including echograms and cardiograms. - Scheduled for an MRI on the heart on December 15. - Patient's heart is functioning at 15%, significantly lower than the expected 65% for his age. - Possible defibrillator implantation in the future, but patient is not interested in surgery. Plan: - Continue monitoring cardiac function and follow up with cardiology appointments. - Encourage patient to attend scheduled MRI appointment. - Discuss potential benefits and risks of defibrillator implantation with the patient. 2. Anxiety: - Patient is currently on lorazepam 2 mg twice a day. Plan: - Continue lorazepam at the current dose. - Monitor for any changes in anxiety levels and adjust medication as needed. - Encourage patient to consider non-pharmacologi reed interventions for anxiety, such as therapy or relaxation techniques. 3. Neuropathic pain: - Patient is currently on gabapentin 300 mg, one in the morning and two at bedtime. Plan: - Continue gabapentin at the current dose. - Monitor for any changes in pain levels and adjust medication as needed. 4. Depression: - Patient is currently on 25 mg of an unspecified antidepressant. Plan: - Continue the current antidepressant at the current dose. - Monitor for any changes in mood and adjust medication as needed. - Encourage patient to consider non-pharmacologi reed interventions for depression, such as therapy or support groups. 5. Sleep disturbance: - Patient reports poor sleep quality and waking up at 3 AM. Plan: - Assess the potential impact of current medications on sleep quality. - Encourage patient to practice good sleep hygiene, such as maintaining a consistent sleep schedule and creating a relaxing bedtime routine. - Consider referral to a sleep specialist if sleep issues persist. 6. Social stressors: - Patient reports ongoing issues with Social Security and concerns about overpayment. - Relationship stress with spouse. Plan: - Encourage patient to seek legal advice or assistance with Social Security issues if needed. - Encourage open communication with spouse and consider couples therapy if appropriate. Follow-up: - Schedule a follow-up appointment in 4 weeks to monitor the patient's progress and adjust treatment plans as needed. 10/28/2023 Major depressive disorder, recurrent severe without psychotic features (ICD-10 - F33.2) he has persistent depression, anxiety, insomnia he does not want medication change 12/30/2023 Major depressive disorder, recurrent severe without psychotic features (ICD-10 - F33.2) 1. Sleep disturbances - Patient reports difficulty sleeping, waking up multiple times at night, and broomcorn press feeder awakenings. - Plan: Assess for potential causes of sleep disturbances, including anxiety or depression. Consider sleep hygiene recommendations and monitor for changes in sleep patterns. 2. Depression - Patient reports ongoing depression symptoms, with limited social and daily activities. - Plan: Continue current antidepressant medication. Monitor depression symptoms and consider adjustments to treatment if needed. Encourage the patient to engage in social activities and seek support from friends and family. 3. Anxiety - Patient is currently on medication for anxiety. - Plan: Continue medication as prescribed and monitor for changes in anxiety symptoms. Consider non-pharmacologi reed interventions, such as relaxation techniques or therapy, if needed. 12/05/2023 Major depressive disorder, recurrent severe without psychotic features (ICD-10 - F33.2) he has persistent depression, anxiety, insomnia he does not want medication change. he has persistent depression, anxiety, insomnia he does not want medication change 1. Cardiac issues: - Patient reports undergoing various tests, including echograms and cardiograms. - Scheduled for an MRI on the heart on December 15. - Patient's heart is functioning at 15%, significantly lower than the expected 65% for his age. - Possible defibrillator implantation in the future, but patient is not interested in surgery. Plan: - Continue monitoring cardiac function and follow up with cardiology appointments. - Encourage patient to attend scheduled MRI appointment. - Discuss potential benefits and risks of defibrillator implantation with the patient. 2. Anxiety: - Patient is currently on lorazepam 2 mg twice a day. Plan: - Continue lorazepam at the current dose. - Monitor for any changes in anxiety levels and adjust medication as needed. - Encourage patient to consider non-pharmacologi reed interventions for anxiety, such as therapy or relaxation techniques. 3. Neuropathic pain: - Patient is currently on gabapentin 300 mg, one in the morning and two at bedtime. Plan: - Continue gabapentin at the current dose. - Monitor for any changes in pain levels and adjust medication as needed. 4. Depression: - Patient is currently on 25 mg of an unspecified antidepressant. Plan: - Continue the current antidepressant at the current dose. - Monitor for any changes in mood and adjust medication as needed. - Encourage patient to consider non-pharmacologi reed interventions for depression, such as therapy or support groups. 5. Sleep disturbance: - Patient reports poor sleep quality and waking up at 3 AM. Plan: - Assess the potential impact of current medications on sleep quality. - Encourage patient to practice good sleep hygiene, such as maintaining a consistent sleep schedule and creating a relaxing bedtime routine. - Consider referral to a sleep specialist if sleep issues persist. 6. Social stressors: - Patient reports ongoing issues with Social Security and concerns about overpayment. - Relationship stress with spouse. Plan: - Encourage patient to seek legal advice or assistance with Social Security issues if needed. - Encourage open communication with spouse and consider couples therapy if appropriate. Follow-up: - Schedule a follow-up appointment in 4 weeks to monitor the patient's progress and adjust treatment plans as needed. 02/03/2024 Major depressive disorder, recurrent severe without psychotic features (ICD-10 - F33.2) 1. Depression- cont Nortriptyline 25mg take 3 capsules at bedtme 2. Anxiety and stress - The patient reports being medicated for anxiety and stress but still experiences stressors in his life, including concerns about his family members' health. Plan: - Continue the current lorazepam and gabapentin regimen for anxiety management. - Consider referral to a mental health professional for additional support in managing stress and anxiety related to the patient's health and family concerns. 03/09/2024 Major depressive disorder, recurrent severe without psychotic features (ICD-10 - F33.2) 1. Anxiety: - Continue Lorazepam 2mg twice daily. -Continue Gabapentin 300mg, take 1 capsule in the morning and 2 capsules at bedtime. 2. Major Depressive Disorder Recurrent: - Continue Nortriptyline 25mg take 3 capsules at bedtime 3. Medications: - Patient is taking gabapentin, nortriptyline, and lorazepam as prescribed. -He has been on his current medications for over 10 years and does not want medication adjustments. - Patient reports difficulty refilling lorazepam due to controlled substance regulations and occasionally uses marijuana for anxiety relief. Plan: - Continue with current medications. - Monitor patient's use of marijuana and discuss potential risks and benefits. - Consider alternative anxiety management strategies if needed. 4. Follow-up: - Patient has a scheduled appointment for next month. Plan: - Continue to monitor patient's progress and address any new concerns during the next appointment. 04/15/2024 Post-traumatic stress disorder, chronic (ICD-10 - F43.12) 1. Major Depressive Disorder: - Patient reports ongoing worries related to Social Security issues and a recent increase in sadness due to the loss of his dog. - Patient mentioned not having anyone to talk to and experiencing anxiety. - Currently on Nortriptyline 25 mg, 3 tablets at bedtime. Plan: - Continue current medication regimen. - Encourage the patient to seek support from friends or family members. - Consider joining a support group or engaging in therapy to address concerns and feelings of isolation. 2. Generalized Anxiety Disorder: - Patient reports anxiety levels remain the same, with ongoing concerns about Social Security and other life stressors. - Currently taking Lorazepam twice a day as needed for anxiety. Plan: - Continue current medication regimen. - Encourage the patient to practice relaxation techniques, such as deep breathing exercises or mindfulness meditation. 3. Neuropathic Pain: - Patient is currently taking gabapentin for neuropathic pain management. - Current regimen: Gabapentin, 2 tablets at night and 1 tablet in the morning. Plan: - Continue current medication regimen. - Monitor the patient's pain levels and adjust the medication regimen as needed. Follow-up: - Schedule a follow-up appointment for May 18 to monitor the patient's progress and adjust treatment plans as needed. 05/24/2024 Major depressive disorder, recurrent severe without psychotic features (ICD-10 - F33.2) 06/30/2024 Major depressive disorder, recurrent severe without psychotic features (ICD-10 - F33.2) 07/28/2024 Encounter for screening for cardiovascular disorders (ICD-10 - Z13.6) 08/27/2024 Major depressive disorder, recurrent severe without psychotic features (ICD-10 - F33.2) 09/20/2024 Major depressive disorder, recurrent severe without psychotic features (ICD-10 - F33.2) 09/20/2024 Generalized anxiety disorder (ICD-10 - F41.1) 08/27/2024 Generalized anxiety disorder (ICD-10 - F41.1) 04/15/2024 Major depressive disorder, recurrent severe without psychotic features (ICD-10 - F33.2) 1. Major Depressive Disorder: - Patient reports ongoing worries related to Social Security issues and a recent increase in sadness due to the loss of his dog. - Patient mentioned not having anyone to talk to and experiencing anxiety. - Currently on Nortriptyline 25 mg, 3 tablets at bedtime. Plan: - Continue current medication regimen. - Encourage the patient to seek support from friends or family members. - Consider joining a support group or engaging in therapy to address concerns and feelings of isolation. 2. Generalized Anxiety Disorder: - Patient reports anxiety levels remain the same, with ongoing concerns about Social Security and other life stressors. - Currently taking Lorazepam twice a day as needed for anxiety. Plan: - Continue current medication regimen. - Encourage the patient to practice relaxation techniques, such as deep breathing exercises or mindfulness meditation. 3. Neuropathic Pain: - Patient is currently taking gabapentin for neuropathic pain management. - Current regimen: Gabapentin, 2 tablets at night and 1 tablet in the morning. Plan: - Continue current medication regimen. - Monitor the patient's pain levels and adjust the medication regimen as needed. Follow-up: - Schedule a follow-up appointment for May 18 to monitor the patient's progress and adjust treatment plans as needed. 08/27/2024 Post-traumatic stress disorder, chronic (ICD-10 - F43.12) supportive care 09/20/2024 Post-traumatic stress disorder, chronic (ICD-10 - F43.12) supportive care 05/24/2024 Other 1. Anxiety: - Patient is currently taking lorazepam 2 mg twice a day for anxiety management. No significant changes in anxiety levels reported during the visit. Plan: - Continue lorazepam 2 mg twice a day. - Monitor patient's anxiety levels and adjust medication as needed. - Encourage patient to engage in relaxation techniques and consider therapy if anxiety worsens. 2. Neuropathic pain: - Patient is on gabapentin 300 mg in the morning and 600 mg at bedtime for neuropathic pain management. No significant changes in pain levels reported during the visit. Plan: - Continue gabapentin at the current dosage. - Monitor patient's pain levels and adjust medication as needed. - Encourage patient to engage in physical therapy or other non-pharmacologi reed pain management strategies if pain worsens. 3. Sleep disturbance: - Patient reported ongoing difficulty with sleep, which may be contributing to anxiety and overall well-being. Plan: - Assess sleep hygiene and provide recommendations for improving sleep quality. - Consider a sleep study if sleep issues persist or worsen. - Monitor patient's sleep patterns and consider medication adjustments or additional interventions if needed. Follow-up: - Schedule a follow-up appointment for next month. 06/30/2024 Other 1. Anxiety: - Patient reports no significant change in anxiety levels. - Continues to take lorazepam 2 mg twice a day as prescribed. Plan: - Continue lorazepam 2 mg twice a day. - Monitor patient's anxiety levels during follow-up appointments. 2. Depression: - Patient reports no significant change in depression levels. - Continues to take nortriptyline 25 mg, 3 tablets at bedtime as prescribed. Plan: - Continue nortriptyline 25 mg, 3 tablets at bedtime. - Monitor patient's depression levels during follow-up appointments. 3. Neuropathic pain: - Patient is currently on gabapentin for neuropathic pain management. No issues reported. Plan: - Continue gabapentin as prescribed. - Assess pain levels and effectiveness of medication during follow-up appointments. 4. Cardiovascular health: - Patient mentions taking heart medicine without any issues. Plan: - Continue current heart medication as prescribed. - Monitor cardiovascular health during follow-up appointments. 5. General health and well-being: - Patient reports difficulty shoveling snow and decreased physical stamina. Plan: - Encourage patient to engage in appropriate physical activities within their capacity. - Monitor patient's overall health and well-being during follow-up appointments. Follow-up: - Schedule a follow-up appointment in one month. - Have the office staff call the patient to schedule the appointment. 07/28/2024 Other He has been on current medications for years, does not want medication changes Buck Eder, male patient with history of COPD and cardiac issues, presents for routine follow-up with no significant changes in his condition. Anxiety Assessment: Patient continues to experience anxiety, managed with lorazepam. No reported changes in symptoms or functioning. Ongoing stressor related to potential Social Security overpayment issue from 15 years ago, causing persistent concern. Plan: - Continue lorazepam 2 mg PO BID Neuropathic Pain Assessment: Patient continues current regimen of gabapentin and nortriptyline for neuropathic pain management. No reported changes in pain levels or side effects. Plan: - Continue gabapentin 300 mg PO QAM and 600 mg PO QHS - Continue nortriptyline 75 mg PO QHS Chronic Obstructive Pulmonary Disease (COPD) Assessment: Patient reports ongoing shortness of breath attributed to COPD. No acute exacerbations or changes in symptoms reported. Plan: - Continue current COPD management (specific medications not discussed) Cardiac Issues Assessment: Patient reports recent cardiology follow-up. Echocardiogram scheduled for November 09. Patient expresses skepticism about cardiac improvement, noting no significant change in symptoms. Denies consistent chest pain or arm pain. Plan: - Follow up with metal finish inspector as scheduled on November 09 - Complete scheduled echocardiogram prior to cardiology appointment Social Security Overpayment Concern Assessment: Patient expresses ongoing concern about potential Social Security overpayment issue from 15 years ago. This situation is causing persistent anxiety and uncertainty about future financial stability. Plan: - Patient to continue monitoring monthly Social Security payments - Patient considering legal consultation if overpayment issue persists the note is transcribed using speech recognition software. It is a reflection of a visit with the patient. It might have some inaccuracy, including medication names and transcribing errors, though efforts have been made to correct them. 08/27/2024 Abdulaziz Gaines, an older adult male with a history of depression and diabetes, presents with persistent depressive symptoms and lack of motivation. Major Depressive Disorder Assessment: Patient reports no significant change in depressive symptoms over the past month. He endorses occasional crying episodes and a persistent lack of motivation, stating I just have no desire to do anything. Sleep patterns remain unchanged. The patient's depressive symptoms appear to be chronic and resistant to current treatment regimen. Plan: - Discuss potential medication changes to address persistent depressive symptoms - Continue current antidepressant regimen pending medication review - Encourage patient to engage in activities to combat anhedonia and improve mood - Follow up in one month to reassess depressive symptoms and medication efficacy the note is transcribed using speech recognition software. It is a reflection of a visit with the patient. It might have some inaccuracy, including medication names and transcribing errors, though efforts have been made to correct them. [id number]|2024-09-24 10:17:00|2024-09-24 10:17:00|XMS_ITS|BKG DAELIZABETHON|External Medical Summaries|[id number]|" Clinical Summary Created on: September 24, 2024 Buck Gaines : 1955 Sex: Male Author Organization [facility] Address [address] [place] [address] Care Team Providers Care Sheep Boner Name Role Phone Luiz Flowers MD Primary Care Provider [phone] Source Comments [facility],non-owned Affiliates and Associated Physician Practices is amultiple site organization consisting of ambulatory clinics and hospital sitesin [place], [place], [place] and [place]. This disclosure is being madepursuant to the Care Everywhere program and may not contain all information available regarding this patient. 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 Gender Identity Not on file Sexual Orientation Not on file Last Filed Vital Signs Vital Sign Reading Time Taken Comments Blood Pressure 113/80 10/27/2014 1:25 PM CDT Pulse 86 10/27/2014 1:25 PM CDT Temperature 36.7 C (98.1 F) 10/27/2014 1:25 PM CDT Respiratory Rate 18 10/27/2014 1:25 PM CDT Oxygen Saturation - - Inhaled Oxygen Concentration - - Weight 81.8 kg (180 lb 4.8 oz) 10/27/2014 1:25 P M CDT Height 175.3 cm (5' 9 ) 10/27/2014 1:25 PM CDT Body Mass Index 26.63 10/27/2014 1:25 PM CDT Plan of Treatment Health Maintenance Due Date Last Done Comments COLOGUARD (AGES 45-75) - COLON CA SCREENING 1955 COLON MONITORING 1955 COLONOSCOPY - COLON CA SCREENING 1955 CT COLONOGRAPHY - COLON CA SCREENING 1955 Colorectal Cancer Screening 1955 FIT - COLON CA SCREENING 1955 FLEX SIG - COLON CA SCREENING 1955 LIPID TESTING 1955 DTAP/TDAP/TD VACCINES (1 - Tdap) 1974 PNEUMOCOCCAL VACCINE 50+ (1 of 1 - PCV) 2005 ZOSTER VACCINE (1 of 2) 2005 AAA SCREENING 2020 COVID-19 VACCINE ( - 2023- season) 2024 DEPRESSION SCREENING 05/12/2024 INFLUENZA VACCINE (Season Ended) 2025 Respiratory Syncytial Virus (RSV) Vaccine Pt: or over 60 yrs (1 - 1-dose 75+ series) 2030 HEPATITIS C SCREENING Completed 10/27/2014 , 07/21/2014, 06/20/2014, Additional history exists HEPATITIS B VACCINE Aged Out No longe r eligible based on patient's age to complete this topic HIB VACCINE Aged Out No longer eligi ble based on patient's age to complete this topic HPV VACCINE Aged Out No longer eligi ble based on patient's age to complete this topic MENINGOCOCCAL (Group B) VACCINE SHARED DECISION-MAKING Aged Out No longer eligible based on patient's age to complete this topic MENINGOCOCCAL GROUPS A/C/Y/W VACCINE Aged Out No longer eligible based on patient's age to complete this topic Procedures Procedure Name Priority Date/Time Associated Diagnosis Comments HEPATITIS C RNA QUANTITATIVE Routine 01/31/2014 1:44 PM CDT from Last 3 Months or Most Recently Relevant to Health Maintenance Results * (ABNORMAL) HEPATITIS C RNA QUANTITATIVE PCR (01/31/2014 1:44 PM CDT) [facility] Hepatitis C Virus RNA PCR Specimen: 1 ml Serum Reference: [id number] Test: Hepatitis C RT-PCR (Quantitative) RESULT 983,300 IU/ml Reference Range Not Detected INTERPRETATION The quantitative Hepatitis C viral RNA RT-PCR determination was performed on a serum sample and is reported in IU/ml. Detection and quantification was successful. COMMENT The Hepatitis C (HCV) viral RNA analysis utilized a serum sample, real-time reverse aerodynamic consultant PCR, and is reported as Not Detected/Detected (<50)/Quantity (IU/ml) or >35,000,000 IU/ml. The analytical sensitivity of the assay is 7 IU/ml (95% of samples with this HCV RNA level were detected). Values less than 7 IU/ml are reported as Not Detected (<7 IU/ml); values greater than 7 IU/ml and less than 50 IU/ml are reported as Detected (<50). The linear range is from 50 IU/ml to 35,000,000 IU/ml. Values greater than 35,000,000 IU/ml are reported as >35,000,000 IU/ml. The detection/quantita tion of HCV RNA in serum or plasma is based on the isolation of HCV RNA with reverse aerodynamic consultant of genomic HCV RNA followed by real-time PCR in the presence of a reference standard RNA. The standard ensures that RNA was isolated, that no general significant inhibitors of the RT-PCR process were present. This test was developed and its performance characteristics determined by the [facility] at [facility]. It has not been cleared or approved by the U.S. Food and Drug Administration. The FDA has determined that such clearance or approval is not necessary. This test is used for clinical purposes. It should not be regarded as investigational or for research. This laboratory is certified under the Clinical Laboratory Improvement Amendments of 1988 (CLIA-88) as qualified to perform high complexity clinical laboratory testing. Test performed at [facility], [address] [place] [address] This case has been personally reviewed and interpreted by the attending (teaching) pathologist. Final Diagnosis performed by Akira Amaya PHD. Electronically signed 02/02/2014(A) [facility] Blood specimen (specimen) BLOOD SPECIMEN / Unknown 01/31/2014 1:44 PM CDT 01/31/2014 1:50 PM CDT us Jerrod Cox MD LAB - CHEMISTRY ORDERABLES Theresa murray Result [facility]) from Last 3 Months or Most Recently Relevant to Health Maintenance Insurance [facility] MANAGED MEDICARE ADV Care Teams Sheep Boner Relationship Specialty Start Date End Date Luiz Flowers MD [address] [place] [address] PCP - General 01/31/14 "
--- OUTSIDE RECORDS SUMMARY | 2024-09-24 10:17 | XMS_ITS | Clinical Summary ---
Author Organization [facility] Main [place] Address [address] [place] [address] Care Team Providers Care Facilities And Grounds Director Name Role Phone Luiz Flowers MD Primary Care Provider [phone] Allergies No known active allergies Medications amiodarone [...] 2 (two) times a day 60 tablet 4 Active metoprolol XL (TOPROL-XL) 50 mg extended release tablet Take 1 tablet (50 mg total) by mouth daily 30 tablet 4 Active Active Problems No known active problems Surgical History Surgery Date Site/Laterality Comments [place] ESOPHAGOGASTRODUODENOSCOP Y TRANSORAL DIAGNOSTIC Diagnostic Esophagogastroduodenoscopy - (Added by TW Conv) [place] UNLISTED PROCEDURE COLON Colon Surgery - (Added by TW Conv) ESOPHAGEAL DILATION Esophageal Dilation - (Added by TW Conv) Medical History Medical History Date Comments Other retroperitoneal abscess (HCC) Retroperitoneal abscess - (Added by TW Conv) Achalasia of cardia Achalasia - (Added by TW Conv) History of peptic ulcer disease History of peptic ulcer - (Added by TW Conv) Personal history of other me ntal and behavioral disorders History of bipolar disorder - (Added by TW Conv) Personal history of other me ntal and behavioral disorders History of depression - (Add ed by TW Conv) Anxiety disorder Anxiety - (Adde d by TW Conv) Personal history of other in fectious and parasitic diseases History of hepatitis C virus infection - (Added by TW Conv) Disorder of teeth or support ing structures Poor dentition - (Added by T W Conv) Personal history of other en docrine, nutritional and metabolic disease History of hypothyro idism - (Added by TW Conv) Personal history of other ve nous thrombosis and embolism History of blood clot in bra in - (Added by TW Conv) Personal history of other di seases of the respiratory system History of asthma - (Added b y TW Conv) Family History Medical History Relation Name Comments Heart attack Brother Family history of myocardial infarction - (Added by TW Conv) Liver cancer Father Family history of liver cancer - (Added by TW Conv) COPD Mother Family history of chronic obstructive pulmonary disease - (Added by TW Conv) Heart attack Sister Family history of myocardial infarction - (Added by TW Conv) Stroke Sister Family history of cerebrovascular accident (CVA) - (Added by TW Conv) Relation Name Status Comments Brother Father Mother Sister Social History Tobacco Use Types Packs/Day Years Used Date Smoking Tobacco: Former Tobacco Cessation:Counseling Given: Not Answered Sex and Gender Information Value Date Recorded Sex Assigned at Not on file 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 Gender Identity Not on file Sexual Orientation Not on file Obstetrics History Last Filed Vital Signs Vital Sign Reading [...] 11/19/2023 3:15 PM CDT Plan of Treatment Health Maintenance Due Date Last Done Comments Colon Cancer Screening-Colonoscopy 1955 Depression Screening 1955 Fall Risk Assessment 1955 Hepatitis C Screening 1955 Prostate Cancer Screening-PSA 1955 DTaP/Tdap/Td Vaccine (1 - Tdap) 1966 Hepatitis B Screening 1973 Pneumococcal vaccine 65+ (3 of 3 - PCV20 or PCV21) 04/11/2020 04/11/2015, 04/06/2014, 02/14/2014 Abdominal Aortic Aneurysm (A AA) Screen 2020 Well Visit 65+ 2020 Zoster Vaccine (2 of 2) 10/30/2023 09/04/2023 Covid-19 Vaccine (7 - 2023-2 5 season) 2024 02/19/2023, 03/08/2022, 10/06/2021, Additional history exists Influenza Vaccine (Season Ended) 2025 01/25/2023, 03/08/2022, 02/02/2021, Additional history exists Insurance [facility] MEDICARE ADVANTAGE [facility] Care Teams Facilities And Grounds Director Relationship Specialty Start Date End Date Luiz Flowers MD [address] [facility] [address] [place], [place] [id number] PCP - General Internal Medicine 09/16/17
[2024-09-24 10:30] LABS: Basophils Absolute Auto 0.1 K/mm3 (0.0-0.1); Basophils Percent Auto 0.8 % (0.2-1.2); Eosinophils Absolute Auto 0.4 K/mm3 (0-0.3); Eosinophils Percent Auto 3.4 % (0-4.4); Hematocrit 53.2 % (42.0-52.0); Hemoglobin 16.7 g/dL (14.0-18.0); Immature Granulocyte Absolute 0.39 K/mm3 (0.00-0.031); Immature Granulocyte Percent A 3.2 % (0-0.5); Lymphocytes Absolute Auto 1.98 K/mm3 (0.9-3.2); Lymphocytes Percent Auto 16.1 % (18.3-44.2); Mean Corpuscular HGB Conc 31.4 g/dl (32-36); Mean Corpuscular Hemoglobin 27.6 pg (26-34); Mean Corpuscular Volume 88.1 fl (80-100); Mean Platelet Volume 8.6 fl (7.4-10.4); Monocytes Absolute Auto 1.1 K/mm3 (0.1-0.6); Neutrophils Absolute Auto 8.3 K/mm3 (1.3-6.7); Neutrophils Percent Auto 67.5 % (45.5-73.1); Platelet Count Result 293 k/mm3 (150-375); Red Blood Count 6.04 M/mm3 (4.6-6.20); White Blood Count 12.3 K/mm3 (4.5-10.0)
[2024-09-24 10:43] LABS: Alanine Aminotransferase 25 U/L (6-50); Albumin Level 4.9 g/dL (3.5-5.1); Alkaline Phosphatase 66 U/L (38-126); Anion Gap 9 mmol/L (4-12); Aspartate Amino Transferase 33 U/L (17-59); Bilirubin,Total 0.7 mg/dL (0.2-1.3); Blood Urea Nitrogen 18 mg/dL (9-20); Calcium 9.4 mg/dL (8.4-10.2); Carbon Dioxide 35 mmol/L (22-30); Chloride 96 mmol/L (98-107); Estimated Glomerular Filt Rate > 60; Glucose 103 mg/dL (65-110); Magnesium 2.3 mg/dL (1.6-2.3); Potassium 4.3 mmol/L (3.4-5.0); Sodium 140 mmol/L (137-145)
[2024-09-24 11:16] LABS: Prostate Specific Antigen 0.5 ng/mL (< OR = 4.0)
[2024-09-24 11:49] LABS: Vitamin D 25 Hydroxy 45.5 ng/mL
[2024-09-24 13:40] LABS: Hemoglobin A1C 6.3 % (<5.7)
== END 2024-09-24 10:11 | disposition home or self-care (01) ==
LOC: ANHLAB 10:13
PROVIDERS: PCP Family Medicine; Visit Provider Family Medicine
DX: F43.10 Post-traumatic stress disorder, unspecified (principal); I50.9 Heart failure, unspecified; I73.9 Peripheral vascular disease, unspecified; E11.9 Type 2 diabetes mellitus without complications; K22.0 Achalasia of cardia; E64.9 Sequelae of unspecified nutritional deficiency; J44.9 Chronic obstructive pulmonary disease, unspecified; Z12.5 Encounter for screening for malignant neoplasm of prostate; Z79.899 Other long term (current) drug therapy
CPT/HCPCS: 36415; 80053; 82306; 82607; 83036; 83735; 84153; 85025; G0103

== ENCOUNTER 2024-11-11 09:33 | Outpatient (CLI) | payer MEDICARE, SELFPAY ==
--- OUTSIDE RECORDS SUMMARY | 2024-11-11 09:36 | XMS_ITS | Referral Summary ---
Author Organization 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
--- OUTSIDE RECORDS SUMMARY | 2024-11-11 09:36 | XMS_ITS | Patient Health Record ---
Author Organization [facility] Address [address] [facility] [address] [place] [address] Care Team Providers Care Account Executive Key Accounts Name Role Phone Daniel Keyes MD Primary Care Provider Jamir Pennington Unavailable [phone] Allergies No Known Allergies Results Component Value Reference Range Notes UDT Reviewed date:08/27/2024 02:00:43 PM Interpretation: Performing Lab: Notes/Report: THC POS 0 - 50 ng/ml Cocaine NEG 0 - 300 ng/ml Amphetamine NEG 0 - 1000 ng/ml Buprenorphine (BUP) NEG 0 - 10 ng/ml Secobarbital (Bar) NEG 0 - 300 ng/ml Oxazepam (BZO) POS 0 - 300 ng/ml 7-rlrwbcpjdf-1,2-tjibbwhi-2,3-diphenylpyrrolidine (TERRI P) NEG 0 - 300 ng/ml Methamphetamine (MET) NEG 0 - 1000 ng/ml Methylenedioxymethamphetamine (MDMA) NEG 0 - 500 ng/ml Morphine (MOP 300/IIV1963) NEG 0 - 300 ng/ml Methadone (MTD) [...] Oxazepam (BZO) P 0 - 300 ng/ml 8-xncdkroptl-8,9-krihjqrt-6,3-diphenylpyrrolidine (TERRI P) N 0 - 300 ng/ml Methamphetamine (MET) N 0 - 1000 ng/ml Methylenedioxymethamphetamine (MDMA) N 0 - 500 ng/ml Morphine (MOP 300/VSF5598) N 0 - 300 ng/ml Methadone (MTD) N 0 - 300 ng/ml Phencyclidine (PCP) N 0 - 25 ng/ml Nortriptyline (TCA) N 0 - 1000 ng/ml Oxycodone N 0 - 300 ng/ml x N 0 - 300 ng/ml Reason For Referral No Information Medications Medication SIG (Take, Route, Frequency, Duration) Notes Start Date End Date Status LORazepam 2 MG 1 tablet Oral twice a day; Duration: 30 days 10/25/2024 Active ProAir HFA 108 (90 Base) MCG/ACT Inhalation 09/25/2023 Active Nortriptyline HCl 25 MG 3 capsules at be dtime Oral Once a day; Duration: 30 days Active Gabapentin 300 MG 1 capsule every morning, 2 capsules at bedtime Oral Once a day; Duration: 30 days Active Entresto 24-26 MG Oral; Duration: 60 Days Not-Taking Entresto 24-26 MG Oral; Duration: 60 Days Not-Taking Furosemide 40 MG Oral; Duration: 90 Days Active Jardiance 10 MG Oral; Duration: 30 Days Active Metoprolol Succinate ER 50 MG Oral; Duration: 30 Days Active Entresto 24-26 MG Oral; Duration: 60 Days Active Immunizations Vaccine Route Administration Date Status Comme nts Pneumococcal polysaccharide PPV23 Unknown 04/06/2014 Ad ministered Pneumococcal conjugate PCV 13 Unknown 02/14/2014 Admini stered Pneumococcal conjugate PCV 13 Unknown 04/11/2015 Admini stered Pfizer Biontech Covid-19 Vac cine 2nd dose Unknown 07/13/2020 Administered Pfizer Biontech Covid-19 Vac cine 2nd dose Unknown 08/03/2020 Administered Pfizer Biontech Covid-19 Vac cine 2nd dose Unknown 02/16/2021 Administered Pfizer Biontech Covid-19 Vac cine 2nd dose Unknown 10/06/2021 Administered Novel Gtikugygs-[id number], preservative free Unknown 02/13/2017 Administered Novel Fyxpeguef-Q4Y0-86, preservative free Unknown 01/31/2018 Administered Novel Spahsaqsl-V7G8-05, preservative free Unknown 01/19/2020 Administered Influenza, unspecified formulation Unknown 01/31/2012 A dministered Influenza, unspecified formulation Unknown 02/08/2013 A dministered Influenza, unspecified formulation Unknown 02/14/2014 A dministered Influenza virus vaccine, quadrivalent (IIV4), split virus, 0.25 mL dosage Unknown 02/06/2015 Administered Influenza virus vaccine, quadrivalent (IIV4), split virus, 0.25 mL dosage Unknown 03/09/2019 Administered Influenza virus vaccine, quadrivalent (IIV4), split virus, 0.25 mL dosage Unknown 01/19/2020 Administered Social History Tobacco Use: Social History Observation [...] Severe recurrent major depression without psychotic features (40129865) Major depressive disorder, recurrent severe without 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) Active confirmed Problem Generalized anxiety disorder (47793646) Generalized anxiety disorder (F41.1) Active confirmed Problem Posttraumatic stress disorder (01612845) Post-traumatic stress disorder, chronic (F43.12) Active confirmed Vital Signs Heart Rate 92 /min 10/25/2024 Height-cm 175.26 cm 10/25/2024 Blood pressure diastolic 71 mm Hg 10/25/2024 Weight-kg 95.53 kg 10/25/2024 Height 69.00 in 10/25/2024 Blood pressure systolic 111 mm Hg 10/25/2024 Weight 210.6 lbs 10/25/2024 BMI 31.1 kg/m2 10/25/2024 Encounters Encounter Location Date Provider Diagnosis [facility] [employer] [employer] [address] [place] [address] 12/05/2023 Jamir Herr Generalized anxiety disorder F41.1 ; Post-traumatic stress disorder, chronic F43.12 and Major depressive disorder, recurrent severe without psychotic features F33.2 [facility] [employer] [address] [place] [address] 12/30/2023 Jamir Herr Generalized anxiety disorder F41.1 ; Post-traumatic stress disorder, chronic F43.12 and Major depressive disorder, recurrent severe without psychotic features F33.2 [facility] [place], [facility] [address] [facility] [address] [place] [address] 02/03/2024 Jamir Herr Generalized anxiety disorder F41.1 ; Post-traumatic stress disorder, chronic F43.12 and Major depressive disorder, recurrent severe without psychotic features F33.2 [facility] [place], [facility] [address] [facility] [address] [place] [address] 03/09/2024 Jamir Herr Generalized anxiety disorder F41.1 ; Post-traumatic stress disorder, chronic F43.12 and Major depressive disorder, recurrent severe without psychotic features F33.2 [facility] [place], [facility] [address] [address] 04/15/2024 Jamir Herr Hypertension, unspecified type 401.9 ; Generalized anxiety disorder F41.1 ; Post-traumatic stress disorder, chronic F43.12 and Major depressive disorder, recurrent severe without psychotic features F33.2 [facility] [employer] [facility] [address] [address] 05/24/2024 Jamir Herr Generalized anxiety disorder F41.1 ; Post-traumatic stress disorder, chronic F43.12 and Major depressive disorder, recurrent severe without psychotic features F33.2 [facility] [place], [facility] [address] [address] 06/30/2024 Jamir Herr Generalized anxiety disorder F41.1 ; Post-traumatic stress disorder, chronic F43.12 and Major depressive disorder, recurrent severe without psychotic features F33.2 [facility] [employer] [facility] [address] [place] [address] 07/28/2024 Jamir Herr Major depressive disorder, recurrent severe without psychotic features F33.2 ; Generalized anxiety disorder F41.1 ; Post-traumatic stress disorder, chronic F43.12 and Encounter for screening for cardiovascular disorders Z13.6 [facility] [place], [facility] [address] [address] 08/27/2024 Jamir Herr Encounter for screen ing for depression Z13.31 ; Encounter for screening for cardiovascular disorders Z13.6 ; Major depressive disorder, recurrent severe without psychotic features F33.2 ; Generalized anxiety disorder F41.1 and Post-traumatic stress disorder, chronic F43.12 [facility] [address] [facility] [address] [place] [address] 09/20/2024 Jamir Aguayoa Encounter for screen ing for cardiovascular disorders Z13.6 ; Encounter for screening for depression Z13.31 ; Major depressive disorder, recurrent severe without psychotic features F33.2 ; Generalized anxiety disorder F41.1 and Post-traumatic stress disorder, chronic F43.12 [facility] [address] [address] 10/25/2024 Jamir Barronoza Encounter for screen ing for cardiovascular disorders Z13.6 ; Encounter for screening for depression Z13.31 ; Major depressive disorder, recurrent severe without psychotic features F33.2 ; Generalized anxiety disorder F41.1 and Post-traumatic stress disorder, chronic F43.12 [place] [address] [address] 03/22/2024 Jamir Herr Generalized anxiety disorder F41.1 [place] [address] [address] 04/06/2024 Jamir Herr [place] [address] [address] 06/30/2024 Jamir Barronoza [place] [address] [address] [facility] [address] [address] 06/21/2024 Jamir Herr [place] [address] [address] 06/22/2024 Jamir Herr Assessments Encounter Date Diagnosis (ICD Code) Assessment Notes Treatment Notes Treatment Clinical Notes Section Notes 12/05/2023 Generalized anxiety disorder (ICD-10 - F41.1) [...] waking up multiple times at night, and medical artist awakenings. - Plan: Assess for potential causes [...] screening for cardiovascular disorders (ICD-10 - Z13.6) 10/25/2024 Encounter for screening for cardiovascular disorders (ICD-10 - Z13.6) 10/25/2024 Encounter for screening for depression (ICD-10 - Z13.31) 08/27/2024 Encounter for screening for cardiovascular disorders (ICD-10 - Z13.6) 09/20/2024 Encounter for screening for depression (ICD-10 - Z13.31) 07/28/2024 Generalized anxiety disorder (ICD-10 - F41.1) [...] waking up multiple times at night, and medical artist awakenings. - Plan: Assess for potential causes [...] and adjust treatment plans as needed. 12/30/2023 Major depressive disorder, recurrent severe without psychotic features (ICD-10 - F33.2) 1. Sleep disturbances - Patient reports difficulty sleeping, waking up multiple times at night, and medical artist awakenings. - Plan: Assess for potential causes [...] severe without psychotic features (ICD-10 - F33.2) 10/25/2024 Major depressive disorder, recurrent severe without psychotic features (ICD-10 - F33.2) 09/20/2024 Major depressive disorder, recurrent severe without psychotic features (ICD-10 - F33.2) 09/20/2024 Generalized anxiety disorder (ICD-10 - F41.1) 10/25/2024 Generalized anxiety disorder (ICD-10 - F41.1) 08/27/2024 [...] disorder, chronic (ICD-10 - F43.12) supportive care 10/25/2024 Post-traumatic stress disorder, chronic (ICD-10 - F43.12) [...] years, does not want medication changes Buck Gaines, male patient with history of COPD and [...] arm pain. Plan: - Follow up with muck hauler as scheduled on November 09 - Complete [...] have been made to correct them. 08/27/2024 Other Buck Gaines, an older adult male with a [...] efforts have been made to correct them. 09/20/2024 Other Buck Gaines, male patient, presents with frustration over medication access issues due to Medicare Prescription Repayment Plan complications and expresses skepticism about his recent cardiac diagnosis and treatment. Medication Access Issues Assessment: Patient reports significant difficulties with the Medicare Prescription Repayment Plan, including being automatically opted out due to a missed payment. Despite resolving the payment issue, he continues to face challenges in accessing his heart medication. This situation has caused considerable stress and frustration for the patient, potentially impacting his medication adherence and overall health management. Plan: - Assist patient in navigating Medicare Prescription Repayment Plan issues - Follow up on medication access status by Friday - Educate on importance of maintaining heart medication regimen Psychosocial Stressors Assessment: Patient describes a stressful Mother's Day gathering with family, indicating interpersonal tensions and communication difficulties, particularly with his . Plan: - Continue to monitor impact of psychosocial stressors on overall well-being - Provide supportive listening and validation of patient's experiences the note is transcribed using speech recognition software. It is a reflection of a visit with the patient. It might have some inaccuracy, including medication names and transcribing errors, though efforts have been made to correct them. 10/25/2024 Abdulaziz Gaines, an older adult male with a history of anxiety and chronic medical conditions, presents for follow-up with ongoing concerns about family dynamics and car-related stress. Anxiety Assessment: Patient reports ongoing stressors related to family dynamics and car issues. He mentions arguments with his over choosing a new car after their previous vehicle broke down. The patient also expresses frustration about airport visits and dealing with stupid people. These situations appear to be exacerbating his anxiety symptoms. Plan: - Continue lorazepam 2 mg PO BID - Continue nortriptyline 75 mg PO at bedtime - Continue gabapentin 300 mg PO qAM and 600 mg PO at bedtime Chronic Medical Conditions Assessment: Patient has multiple chronic medical conditions managed with various medications, including diabetes and cardiovascular issues. He expresses frustration with the need for some medications, particularly mentioning Jardiance for diabetes management. Plan: - Continue current medications for chronic conditions - Giardia medication (reason for prescription unclear) - Jardiance Social Isolation Assessment: Patient reports spending most of his time at home, with limited activities outside of occasional market visits. He expresses interest in adopting another dog for companionship, which may help alleviate some of his social isolation. Plan: - Encourage pursuit of adopting another dog for companionship Workers' Compensation Issue Assessment: Patient expresses frustration with ongoing requests from Awilda Jarvis, presumably related to a workers' compensation claim, for urine drug testing. He questions the necessity of these tests and expresses a desire to challenge their requests. Plan: - Provide patient with a copy of the request from Awilda Jarvis - Advise patient on his right to question the necessity of the drug test with his case handler the note is transcribed using speech recognition software. It is a reflection of a visit with the patient. It might have some inaccuracy, including medication names and transcribing errors, though efforts have been made to correct them. Plan Of Treatment Next Appt Details Provider Name:Jamir ng, 12/01/2024 08:45:00 AM, [address] [facility] [address] [facility] [address], [place], [address], Insurance Providers Payer Name Payer Address Payer Phone Subscriber Number Group Number Insured Name Patient Relationship to Insured Coverage Start Date Coverage End Date Awilda Jarvis [address] [place] [address] [id number] EDERBUCK CORTEZ Self - patient is the insured 9 Medical (General) History Medical History History ICD Code Problems: Chronic post-traumatic stress disorder Drug indicated Generalized anxiety disorder 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 The result was 983,300 IU/ml, which is above the reference range. The interpretation of the result is abnormal. The test was performed at [facility] and was reviewed and interpreted by Akira Amaya PHD. Surgical History Surgery Date(Month/Year) Any surgical history Other 12/21/2015
--- OUTSIDE RECORDS SUMMARY | 2024-11-11 09:36 | XMS_ITS | Clinical Summary ---
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
--- OUTSIDE RECORDS SUMMARY | 2024-11-11 09:36 | XMS_ITS | Clinical Summary ---
Author Organization [facility] Address [address] [place] [address] Care Team Providers Care Energy And Conservation Technician Name Role Phone Luiz Flowers MD Primary Care Provider [phone] Source Comments [facility],non-Critical access hospitalates and Associated Physician Practices is amultiple site organization consisting of ambulatory clinics and hospital sitesin [place], [place] and [place]. This disclosure is being madepursuant to the Care Everywhere program and may not contain all information available regarding this patient. 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 Detection and quantification was successful. COMMENT The Hepatitis C (HCV) viral RNA analysis utilized a serum sample, real-time reverse hair spinning machine operator PCR, and is reported as Not Detected/Detected [...] the isolation of HCV RNA with reverse hair spinning machine operator of genomic HCV RNA followed by real-time PCR in the presence of a reference standard RNA. The standard ensures that RNA was isolated, that no general significant inhibitors of the RT-PCR process were present. This test was developed and its performance characteristics determined by the DNA Diagnostic Laboratory at [facility]. It has not been cleared or [...] complexity clinical laboratory testing. Test performed at [facility], [address] [place], [place] [id number] This case has been personally reviewed and interpreted by the attending (teaching) pathologist. Final Diagnosis performed by Akira Amaya PHD. Electronically signed 02/02/2014(A) [facility] ([facility]) Blood specimen (specimen) BLOOD SPECIMEN / Unknown 01/31/2014 1:44 PM CDT 01/31/2014 1:50 PM CDT us Jerrod Cox MD LAB - CHEMISTRY ORDERABLES Theresa murray Result [facility] (JULI) from Last 3 Months or Most Recently Relevant to Health Maintenance [place] [address] [facility] MANAGED MEDICARE ADV Care Teams Energy And Conservation Technician Relationship Specialty Start Date End Date Luiz Flowers MD [address] [place] [address] PCP - General 01/31/14
--- NOTE | 2024-11-11 09:54 | ECHO_ITS ---
Patient Info Name: Edward Carnes Age: 69 years : 1955 Gender: Male Ht: 69 in Wt: 210 lbs BSA: 2.18 m2 HR: 83 bpm BP: 109 / 79 mmHg Technical Quality: Poor Exam Date: 11/11/2024 10:01 AM Patient Status: O Admit Date: 11/11/2024 Exam Type: CA echo dop color flow w con Complete two-dimensional, color flow and Doppler transthoracic echocardiogram is performed with contrast to opacify the left ventricle and to improve the deliniation of the left ventricle endocardial borders. Electrical Engineering Draftsperson: Deonna Che Attending Provider: Desmond Thomas DO Contrast/Agitated Saline Contrast/Ag. Saline: Definity Amount: 4.00 ml Administered By: Deonna Che Existing IV Access: No New IV Access: Left and Dorsum of Hand Site Condition: IV removed Reason for Poor Study: poor echocardiographic windows Summary 1. Definity contrast administered improved wall motion interpretation. 2. Left ventricular chamber dimension is mildly enlarged. 3. Left ventricular systolic function is moderately globally reduced, estimated at 40-45. 4. The left ventricular diastolic function is grade I diastolic dysfunction. 5. E/e' 10 is mildly elevated. Left Ventricle E/e' 10 is mildly elevated. Left ventricular chamber dimension is mildly enlarged. Left ventricular systolic function is moderately globally reduced, estimated at 40-45. The left ventricular diastolic function is grade I diastolic dysfunction. Definity contrast administered improved wall motion interpretation. Right Ventricle Right ventricular chamber dimension is normal. Right ventricular systolic function is normal. Left Atria Left atrial chamber dimension is normal. Right Atria Right atrial chamber dimension is normal. Aortic Valve The aortic valve is trileaflet. There is no aortic valve stenosis. There is no aortic valve regurgitation. Pulmonic Valve There is no pulmonic regurgitation. Mitral Valve There is no mitral valve stenosis. There is no mitral valve regurgitation. Tricuspid Valve There is no tricuspid valve regurgitation. Pericardium/Pleural There is no pericardial effusion. Inferior Vena Cava Normal inferior vena cava with >50% collapse upon inspiration consistent with normal right atrial pressure, 5 mmHg. Aorta The aortic root size at the sinus of Valsalva is normal. Left Ventricular Outflow Tract Name Value Normal LVOT 2D LVOT Diameter 2.0 cm LVOT Doppler LVOT Peak Velocity 109 cm/s LVOT Peak Gradient 5 mmHg LVOT Mean Gradient 3 mmHg LVOT VTI 20 cm LVOT Stroke Volume 60 ml LVOT CO 5.0 l/min LVOT CI 2.3 l/min/m2 Pulmonic Valve Name Value Normal RVOT Doppler RVOT Peak Velocity 57 cm/s RVOT Peak Gradient 1 mmHg PV Doppler PV Peak Velocity 108 cm/s PV Peak Gradient 5 mmHg Mitral Valve Name Value Normal MV Diastolic Function MV E Peak Velocity 52 cm/s MV A Peak Velocity 70 cm/s MV E/A 0.7 MV Decel Time (PW) 240 ms MV Annular TDI MV E/e' (Septal) 9.8 MV E/e' (Lateral) 10.8 MV E/e' (Average) 10.3 Tricuspid Valve Name Value Normal Estimated PAP/RSVP RA Pressure 5 mmHg <=5 TV Annular TDI TV Lateral Hyun s' Velocity 11.1 cm/s >=9.5 Aortic Valve Name Value Normal AV Doppler AV Peak Velocity 121 cm/s AV Peak Gradient 6 mmHg AV Area (Cont Eq Justin) 2.8 cm2 AV DI (Justin) 0.90 AV Regurgitation 2D LVOT Area 3.1 cm2 Ventricles Name Value Normal LV Dimensions 2D/MM IVS Diastolic Thickness (2D) 0.9 cm 0.6-1.0 LVID Diastole (2D) 4.4 cm 4.2-5.8 LVIW Diastolic Thickness (2D) 1.1 cm 0.6-1.0 LVID Systole (2D) 3.4 cm 2.5-4.0 LVOT Diameter 2.0 cm LV Mass (2D Cubed) 153.12 g 88.00-224.00 LV Mass Index (2D Cubed) 70 g/m2 49-115 Relative Wall Thickness (2D) 0.50 <=0.42 LV Fractional Shortening/Ejection Fraction 2D/MM LV Fractional Shortening (2D) 23 % 25-43 LV EF (2D Teichholz) 46 % LV Diastolic Volume (4C MOD) 118 ml LV EF (4C MOD) 46 % LV Diastolic Volume (2C MOD) 105 ml LV EF (2C MOD) 49 % LV Diastolic Volume (BP MOD) 111 ml 62-150 LV Diastolic Volume Index (BP MOD) 51 ml/m2 34-74 LV Systolic Volume (BP MOD) 60 ml 21-61 LV Systolic Volume Index (BP MOD) 27 ml/m2 11-31 LV EF (BP MOD) 46 % 52-72 LV Diastolic Length (4C) 8.4 cm LV Systolic Length (4C) 7.5 cm LV Stroke Volume (4C MOD) 55 ml RV Dimensions 2D/MM TAPSE 1.4 cm >=1.7 Atria Name Value Normal LA Dimensions LA Volume (4C A-L) 33 ml LA Volume (BP A-L) 39 ml RA Dimensions RA Systolic Major Mcdaniel Length (4C) 4.9 cm 2.1-2.7 RA Area (4C) 12.9 cm2 <=18.0 Report Signatures
[2024-11-11] MEDS: PERFLUTREN LIPID MICROSPHERES 1.5 ML VIAL DILUTED TO 10 ML TOTAL VOLUME IV PUSH (10:35)
--- NOTE | 2024-11-11 10:50 | IVDEFINITY ---
Prior to administration of IV Definity the patient was educated on the risks and benefits of the imaging enhancing agent including potential adverse side effects. The patient verbalized understanding. Allergies were verified. No exclusion criteria were identified and at least one of the following inclusion criteria were met: 1) physician request, 2) patient technically difficult to image (per the [place] Society of Echocardiography guidelines of two or more segments not discernable within the apical view), or 3) questionable left ventricular function. ?
== END 2024-11-11 09:34 | disposition home or self-care (01) ==
PROVIDERS: PCP Family Medicine; Visit Provider Internal Medicine Cardiovascular Disease
DX: I51.89 Other ill-defined heart diseases (principal); I51.7 Cardiomegaly
CPT/HCPCS: C8929; Q9957

== ENCOUNTER 2024-11-19 09:26 | Outpatient (CLI) | payer MEDICARE, SELFPAY ==
--- NOTE | ~2024-11-19 | NM_ITS ---
EXAMINATION: NM angel stress w perfusion DATE: 11/19/2024 11:43 INDICATION: Dyspnea TECHNIQUE: Rest images were obtained following intravenous administration of 9.8 mCi Tc99m tetrofosmi n (Myoview). The patient was infused intravenously with Lexiscan (Regadenoson). Then, 31.3 mCi Tc99m tetrofosmin (Myoview) was administered intravenously, and stress images were obtained, initially in t he supine position with repeat post stress images obtained in the prone position. Data was reconstruc matthew into short axis and horizontal and vertical long axis SPECT images. Gated SPECT images were also obtained. COMPARISON: None. FINDINGS: There is likely type for metastatic attenuation artifact along the inferior wall on the be ging obtained in the supine position which normalizes on the post stress imaging obtained in the pron e position. There is no definite reversible or fixed perfusion abnormality to suggest ischemia or inf arction. There is normal left ventricular chamber size and wall motion. Mildly decreased left ventri cular ejection fraction measures 44%. IMPRESSION: 1. Normal myocardial perfusion at rest and during stress. 2. Left ventricular ejection fraction measuring 44%. Reviewed, dictated and finalized at location A.
--- NOTE | 2024-11-19 09:29 | EST_ITS ---
Patient Info Name: Edward Carnes Age: 69 years : 1955 Gender: Male Ht: 69 in Wt: 211 lbs BSA: 2.19 m2 HR: 185 bpm BP: 100 / 72 mmHg Exam Date: 11/19/2024 9:29 AM Patient Status: O Admit Date: 11/19/2024 Exam Type: CA stress angel w NM A regadenoson stress test was performed. Staff Referring Physician: Desmond Thomas DO Attending Provider: Desmond Thomas DO Exercise Technologist: Cinthya Mooney Exercise Physician: Desmond Thomas DO Summary 1. 1. Negative lexiscan stress test for ischemic ST changes by ECG criteria. 2. 2. Stable hemodynamics throughout the test. 3. 3. Nuclear scan to follow and will be reported separately. Please correlate with it. 4. 4. Patient informed of the above results. Protocol: Lexiscan Stress ECG Details Stage: REST Duration (min): 0 min : 48 sec HR (bpm): 84 SBP (mmHg): 100 DBP (mmHg): 72 Stage: REST Duration (min): 12 min : 59 sec HR (bpm): 84 SBP (mmHg): 100 DBP (mmHg): 72 Stage: STAGE 1 Duration (min): 0 min : 59 sec HR (bpm): 91 SBP (mmHg): 95 DBP (mmHg): 71 Stage: RECOVERY Duration (min): 1 min : 0 sec HR (bpm): 95 SBP (mmHg): 95 DBP (mmHg): 71 Stage: RECOVERY Duration (min): 2 min : 0 sec HR (bpm): 91 SBP (mmHg): 95 DBP (mmHg): 71 Stage: RECOVERY Duration (min): 3 min : 0 sec HR (bpm): 91 SBP (mmHg): 101 DBP (mmHg): 70 Stage: RECOVERY Duration (min): 3 min : 11 sec HR (bpm): 90 SBP (mmHg): 101 DBP (mmHg): 70 Rest HR: 84 bpm Peak HR: 96 bpm Rest Sys BP: 100 mmHg Peak Sys BP: 101 mmHg Max Pred HR: 151 bpm % Max Pred HR: 64 % Target HR: 128 bpm Max RPP: 9,696 bpm*mmHg Termination Reason: Completed protocol Cardiac Symptoms: None Total Time: 1 min : 0 sec Rest Hanks BP: 72 mmHg Peak Hanks BP: 70 mmHg Total Dose: 0.4 mg Resting ECG Sinus rhythm, anteroseptal infarct, age indeterminate. Stress ECG No ST changes. Arrhythmias None. Report Signatures
--- OUTSIDE RECORDS SUMMARY | 2024-11-19 09:30 | XMS_ITS | Referral Summary ---
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
--- OUTSIDE RECORDS SUMMARY | 2024-11-19 09:31 | XMS_ITS | Clinical Summary ---
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 MEDICARE ADVANTAGE [facility] Address: [address] [address] [place] [address] [facility] MEDICARE ADVANTAGE [facility] MEDIC[facility] Address: [address] [address] [place] [address] Care Teams Drain Tile Press Operator Relationship Specialty Start Date End Date Luiz Flowers MD [address] [facility] [address] [place], [place] [id number] PCP - General Internal Medicine 09/16/17
--- OUTSIDE RECORDS SUMMARY | 2024-11-19 09:31 | XMS_ITS | Patient Health Record ---
Author Organization [facility] Address [address] [place] [address] Care Team Providers Care Faculty Criminal Justice Name Role Phone Daniel Keyes MD Primary Care Provider Jamir Pennington Unavailable [phone] Allergies No Known Allergies Results Component Value Reference Range Notes UDT Reviewed date:03/09/2024 03:54:26 PM Interpretation: Performing Lab: Notes/Report: THC P 0 - 50 ng/ml Cocaine N 0 - 300 ng/ml Amphetamine N 0 - 1000 ng/ml Buprenorphine (BUP) N 0 - 10 ng/ml Secobarbital (Bar) N 0 - 300 ng/ml Oxazepam (BZO) P 0 - 300 ng/ml 0-vflryzuswo-0,9-knswjjwe-7,3-diphenylpyrrolidine (TERRI P) N 0 - 300 ng/ml Methamphetamine (MET) N 0 - 1000 ng/ml Methylenedioxymethamphetamine (MDMA) N 0 - 500 ng/ml Morphine (MOP 300/[id number]) N 0 - 300 ng/ml Methadone (MTD) N 0 - 300 ng/ml Phencyclidine (PCP) N 0 - 25 ng/ml Nortriptyline (TCA) N 0 - 1000 ng/ml Oxycodone N 0 - 300 ng/ml x N 0 - 300 ng/ml UDT Reviewed date:08/27/2024 02:00:43 PM Interpretation: Performing Lab: Notes/Report: THC POS 0 - 50 ng/ml Cocaine NEG 0 - 300 ng/ml Amphetamine NEG 0 - 1000 ng/ml Buprenorphine (BUP) NEG 0 - 10 ng/ml Secobarbital (Bar) NEG 0 - 300 ng/ml Oxazepam (BZO) POS 0 - 300 ng/ml 4-clvvtfbwhh-1,8-cqenxtfy-8,3-diphenylpyrrolidine (TERRI P) NEG 0 - 300 ng/ml Methamphetamine (MET) NEG 0 - 1000 ng/ml Methylenedioxymethamphetamine (MDMA) NEG 0 - 500 ng/ml Morphine (MOP 300/[id number]) NEG 0 - 300 ng/ml Methadone (MTD) NEG 0 - 300 ng/ml Phencyclidine (PCP) NEG 0 - 25 ng/ml Nortriptyline (TCA) NEG 0 - 1000 ng/ml Oxycodone NEG 0 - 300 ng/ml x NEG 0 - 300 ng/ml Reason For Referral [...] unspecified formulation Unknown 02/14/2014 A dministered Novel Pazdcvwks-[id number], preservative free Unknown 02/13/2017 Administered Novel [id number]-[id number], preservative free Unknown 01/31/2018 Administered Novel Dntsynijx-X1Y8-47, preservative free Unknown 01/19/2020 Administered Pfizer Biontech [...] Problem Status W/U Status Risk Notes Problem Major depressive disorder, recurrent severe without 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) Active confirmed Problem Generalized anxiety disorder (20484064) Generalized anxiety disorder (F41.1) Active confirmed Problem Posttraumatic stress disorder (18531371) Post-traumatic stress disorder, chronic (F43.12) Active confirmed Vital Signs Heart Rate 92 /min 10/25/2024 Height-cm 175.26 cm 10/25/2024 Blood pressure diastolic 71 mm Hg 10/25/2024 Weight-kg 95.53 kg 10/25/2024 Height 69.00 in 10/25/2024 Blood pressure systolic 111 mm Hg 10/25/2024 Weight 210.6 lbs 10/25/2024 BMI 31.1 kg/m2 10/25/2024 Encounters Encounter Location Date Provider Diagnosis [facility] [address] [place] [address] 12/05/2023 Jamir Herr Generalized anxiety disorder F41.1 ; Post-traumatic stress disorder, chronic F43.12 and Major depressive disorder, recurrent severe without psychotic features F33.2 [facility] [address] [place] [address] 12/30/2023 Jamir Herr Generalized anxiety disorder F41.1 ; Post-traumatic stress disorder, chronic F43.12 and Major depressive disorder, recurrent severe without psychotic features F33.2 [facility] [address] [facility] [address] [place] [address] 02/03/2024 Jamir Herr Generalized anxiety disorder F41.1 ; Post-traumatic stress disorder, chronic F43.12 and Major depressive disorder, recurrent severe without psychotic features F33.2 [place] [address] [facility] [address] [place] [address] 03/09/2024 Jamir Herr Generalized anxiety disorder F41.1 ; Post-traumatic stress disorder, chronic F43.12 and Major depressive disorder, recurrent severe without psychotic features F33.2 [facility] [address] [address] 04/15/2024 Jamir Herr Hypertension, unspecified type 401.9 ; Generalized anxiety disorder F41.1 ; Post-traumatic stress disorder, chronic F43.12 and Major depressive disorder, recurrent severe without psychotic features F33.2 [place] [address] [address] 05/24/2024 Jamir Herr Generalized anxiety disorder F41.1 ; Post-traumatic stress disorder, chronic F43.12 and Major depressive disorder, recurrent severe without psychotic features F33.2 [place] [address] [address] 06/30/2024 Jamir Herr Generalized anxiety disorder F41.1 ; Post-traumatic stress disorder, chronic F43.12 and Major depressive disorder, recurrent severe without psychotic features F33.2 [facility] [address] [facility] [address] [place] [address] 07/28/2024 Jamir Herr Major depressive disorder, recurrent severe without psychotic features F33.2 ; Generalized anxiety disorder F41.1 ; Post-traumatic stress disorder, chronic F43.12 and Encounter for screening for cardiovascular disorders Z13.6 [place] [address] [facility] [address] [place] [address] 08/27/2024 Jamir Herr Encounter for screen ing for depression Z13.31 ; Encounter for screening for cardiovascular disorders Z13.6 ; Major depressive disorder, recurrent severe without psychotic features F33.2 ; Generalized anxiety disorder F41.1 and Post-traumatic stress disorder, chronic F43.12 [facility] [address] [facility] [address] [place] [address] 09/20/2024 Jamir Barronoza Encounter for screen ing for cardiovascular disorders Z13.6 ; Encounter for screening for depression Z13.31 ; Major depressive disorder, recurrent severe without psychotic features F33.2 ; Generalized anxiety disorder F41.1 and Post-traumatic stress disorder, chronic F43.12 [facility] [address] [facility] [address] [place] [address] 10/25/2024 Jamir Herr Encounter for screen ing for cardiovascular disorders Z13.6 ; Encounter for screening for depression Z13.31 ; Major depressive disorder, recurrent severe without psychotic features F33.2 ; Generalized anxiety disorder F41.1 and Post-traumatic stress disorder, chronic F43.12 [facility] [address] [facility] [address] [address] 03/22/2024 Jamir Herr Generalized anxiety disorder F41.1 [place] [address] [address] 04/06/2024 Jamir Barronoza [facility] [address] [address] 06/30/2024 Jamir Barronoza [place] [address] [address] [facility] [address] [address] 06/21/2024 Jamir Herr [place] [address] [address] [facility] [address] [address] 06/22/2024 Jamir Herr Assessments Encounter Date Diagnosis [...] waking up multiple times at night, and ocean export account manager 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 - Plan: Assess for potential causes [...] waking up multiple times at night, and ocean export account manager awakenings. - Plan: Assess for potential causes [...] waking up multiple times at night, and ocean export account manager awakenings. - Plan: Assess for potential causes [...] arm pain. Plan: - Follow up with insurance plan specialist as scheduled on November 09 - Complete [...] been made to correct them. 10/25/2024 Abdulaziz Gaiens, an older adult male with a history [...] Details Provider Name:Jamir ng, 12/01/2024 08:45:00 AM, [facility] [address], [facility] [address], [place], [address], Insurance Providers Payer Name Payer Address Payer Phone Subscriber Number Group Number Insured Name Patient Relationship to Insured Coverage Start Date Coverage End Date Awilda Jarvis [address] [place] [address] [id number] [employer]CK [employer]INES Self - patient is the insured 9 Medical (General) History Medical History History ICD Code Problems: Chronic post-traumatic stress disorder Drug indicated Generalized anxiety disorder 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 The result was 983,300 IU/ml, which is above the reference range. The interpretation of the result is abnormal. The test was performed at [facility] and was reviewed and interpreted by Akira Amaya PHD. Surgical History Surgery Date(Month/Year) Any surgical history Other 12/21/2015
--- OUTSIDE RECORDS SUMMARY | 2024-11-19 09:31 | XMS_ITS | Clinical Summary ---
Author Organization [facility] Address [address] [place] [address] Care Team Providers Care Engineering Assistant Name Role Phone Luiz Flowers MD Primary Care Provider Source Comments [facility] and Associated Physician Practices is amultiple site organization consisting of ambulatory clinics and hospital sitesin [place], [place], [place] and [place]. This disclosure is being madepursuant to the Care Everywhere program and may not contain all information available regarding this patient. 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 Detection and quantification was successful. COMMENT The Hepatitis C (HCV) viral RNA analysis utilized a serum sample, real-time reverse wagon winder PCR, and is reported as Not Detected/Detected [...] the isolation of HCV RNA with reverse wagon winder of genomic HCV RNA followed by real-time PCR in the presence of a reference standard RNA. The standard ensures that RNA was isolated, that no general significant inhibitors of the RT-PCR process were present. This test was developed and its performance characteristics determined by the DNA Diagnostic Laboratory at [facility]. It has not been cleared or approved [...] complexity clinical laboratory testing. Test performed at [facility], [address] [place], [place] [id number] This case has been personally reviewed and interpreted by the attending (teaching) pathologist. Final Diagnosis performed by Akira Amaya PHD. Electronically signed 02/02/2014(A) [facility] (BEAKER) Blood specimen (specimen) BLOOD SPECIMEN / Unknown 01/31/2014 1:44 PM CDT 01/31/2014 1:50 PM CDT us Jerrod Cox MD LAB - CHEMISTRY ORDERABLES Theresa murray Result [facility] (JULI) from Last 3 Months or Most Recently Relevant to Health Maintenance [place] [address] [facility] MANAGED MEDICARE ADV Care Teams Engineering Assistant Relationship Specialty Start Date End Date Luiz Flowers MD [address] [place] [address] PCP - General 01/31/14
== END 2024-11-19 09:27 | disposition home or self-care (01) ==
PROVIDERS: PCP Family Medicine; Visit Provider Internal Medicine Cardiovascular Disease
DX: I50.40 Unspecified combined systolic (congestive) and diastolic (congestive) heart failure (principal); R60.0 Localized edema; I47.29 Other ventricular tachycardia
CPT/HCPCS: 78452; 93017; A9502; J2785

== ENCOUNTER 2025-03-17 10:22 | Outpatient (CLI) | payer MEDICARE, SELFPAY ==
--- OUTSIDE RECORDS SUMMARY | 2025-03-01 03:00 | XMS_ITS ---
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 Name Role Phone Daniel Keyes MD Primary Care Provider Jamir Pennington Unavailable [phone] Allergies No Known Allergies REASON FOR VISIT 1 month f/u Medications Medication SIG (Take, Route, Frequency, Duration) Notes Start Date End Date Status Entresto 24-26 MG Tablet Oral; Duration: 60 Days Not-Taking Gabapentin 300 MG Capsule 1 capsule ever y morning, 2 capsules at bedtime Oral Once a day; Duration: 30 days 03/01/2025 Active Entresto 24-26 MG Tablet Oral; Duration: 60 Days Not-Taking LORazepam 2 MG Tablet 1 tablet Oral twice a day; Duration: 30 days As needed 03/01/2025 Active Nortriptyline HCl 25 MG Capsule 3 capsules at bedtime Oral Once a day; Duration: 30 days 03/01/2025 Active ProAir HFA 108 (90 Base) MCG/ACT Aerosol Solution Inhalation 09/25/2023 Act davon Social History Tobacco Use: Social History Observation Description Date Details (start date - stop date) Former Smoker NA - NA Sex Assigned At : Social History Observation Description Sex Assigned At Male Social History Miscellaneous: Social Info Question Answer Notes Advance Care Planning Are you your own decision-maker Yes Do you have Power of Rn Transfer for Health or Medi reed? No Advance Directive FULL CODE Tobacco Use: Social Info Question Answer Notes Tobacco Control (Standard) Tobacco use: Former smoker How long has it been since you last smoked? Greater than 10 years Additional Details Category Social Info Options Details Migrated Social History Migrated Social History Alcohol Intake: None 05/18/2018,Tobacco Years: Former smoker 02/09/2018,Smoking Status: 45 06/02/2023 Vital Signs Blood pressure systolic 129 mm Hg 03/01/20 25 Blood pressure diastolic 87 mm Hg 025 Heart Rate 100 /min 03/01/2025 Height 69.00 in 03/01/2025 Weight 214 lbs 03/01/2025 BMI 31.6 kg/m2 03/01/2025 Height-cm 175.26 cm 03/01/2025 Weight-kg 97.07 kg 03/01/2025 Encounters Encounter Location Date Provider Diagnosis [facility] [address] [place] [address] 03/01/2025 Jamir Herr Major depressive disorder, recurrent severe without psychotic features F33.2 ; Generalized anxiety disorder F41.1 and Post-traumatic stress disorder, chronic F43.12 Assessments Encounter Date Diagnosis (ICD Code) Assessment Notes Treatment Notes Treatment Clinical Notes Section Notes 03/01/2025 Major depressive disorder, recurrent severe without psychotic features (ICD-10 - F33.2) 03/01/2025 Generalized anxiety disorder (ICD-10 - F41.1) 03/01/2025 Post-traumatic stress disorder, chronic (ICD-10 - F43.12) supportive care Plan Of Treatment Medication Medication Name Sig Start Date Stop Date Notes Gabapentin 300 MG Capsule 1 capsule ever y morning, 2 capsules at bedtime Oral Once a day; Duration: 30 days 03/01/2025 LORazepam 2 MG Tablet 1 tablet Oral twic e a day; Duration: 30 days 03/01/2025 Nortriptyline HCl 25 MG Capsule 3 capsul es at bedtime Oral Once a day; Duration: 30 days 03/01/2025 Treatment Notes Assessment Notes Post-traumatic stress disorder, chronic supportive care Next Appt Details Follow Up: 4 Weeks, Reason: f/u depression Provider Name:Jamir ng, 03/29/2025 09:15:00 AM, [address], [address], [place], [address], History and Physical Notes * HPI (History of Present Illness) Category Sub-Category Detail Notes Category Not es History of Presenting Problem Anxiety Onset: years ago , persistent symptoms Depression screening done Depression Onset: years ago , p ersistent symptoms psychiatric hospitalization- [place]- in his 30's for 8 weeks , persistent Aggravated by: life stressors, family stress Substance abuse daily cannabis use Sleep disturbance persistent Medication Side Effects no Depression screening PHQ-9 Little inte rest or pleasure in doing things: Several days Feeling down, depressed, or hopeless: Se veral days Trouble falling or staying asleep, or sl eeping too much: Not at all Feeling tired or having little energy: N early every day Poor appetite or overeating: Several day s Feeling bad about yourself o r that you are a failure, or have let yourself or your family down: More than half the days Trouble concentrating on thi ngs, such as reading the newspaper or watching television: Not at all Moving or speaking so slowly that other people could have noticed; or the opposite, being so fidgety or restless that you have been moving around a lot more than usual: Not at all Thoughts that you would be b monica off or of hurting yourself in some way: Not at all Total Score: 8 Interpretation: Mild Depression Intervention Depression Screening Findings: P ositve Follow-Up for Depression: [facility] health care management, Psychiatric follow-up Suicide Risk Assessment Performed: __ da te Functional Status Functional Status Assessment D ate of last completed Functional Status Assessment:: 03/01/2025 Fall Risk Assessment:: One fall without injury in the past year Depression Screening FOX-7 (2018 Edition) Feelin g nervous, anxious, or on edge: More than half the days Not being able to stop or control worryi ng: Several days Worrying too much about different things : Several days Trouble relaxing: More than half the day s Being so restless that it is hard to sit still: Not at all Becoming easily annoyed or irritable: Mo re than half the days Feeling afraid as if something awful ace ht happen: Not at all Total FOX-7 Score: 8 If you checked any problems, how difficult have they made it for you to do your work, take care of things at home, or get along with other people?: Somewhat difficult Interpretation of Total: (5 to 9) Mild Bremer-Suicide Severity Rating Scale Suicide Risk (CSRS-screener) in the past one month Have you wished you were or wished you could go to sleep and not wake up?: No in the past one month Have y ou actually had any thoughts of killing yourself?: Yes Examination Category Sub-Category Detail Notes Category Not es Psychiatry Appearance: well-groomed, well-nourished , ... Attitude: cooperative Psychomotor activity: within normal rang e Attention: good Degree of awareness of surroundings: wit hin normal limits Orientation: awake, alert and corey ented x 3 Speech / language: appropriate pitch/mo dulation, clear and coherent, normal rate, volume, and articulation (RVR), proper grammar used Insight: good Judgement: good Thought process: intact Thought content: appropriate Perceptual disorders: no perceptual diso rder noted Suicidal ideation: persistent passive t houghts of Intellectual functioning: no impairment noted Memory status: no impairment noted Delusions: no Hallucinations: no Progress Notes * BUCK GAINESDOB:1955 ( 69 yo M)Acc No.[id number]:03/01/2025 Patient: BUCK FLOREZ Provider: ELLY MCCULLOUGH :1955 A ge:69 Y S ex:Male Date:03/01/2025 Address:[id number] Pcp:Daniel Keyes MD Subjective: * Chief Complaints: * 1 month f/u * HPI: H istory of Presenting Problem: Depression O nset: years ago , persistent symptoms p sychiatric hospitalization- [place]- in his 30's for 8 weeks, persistent A ggravated by: life stressors, family stress.? Anxiety O nset: years ago , persistent symptoms. Sleep disturbance p ersistent. Medication Side Effects n o. Substance abuse d aily cannabis use. Depression screening done. D epression Screening: FOX-7 (2018 Edition) F eeling nervous, anxious, or on edge M ore than half the days N ot being able to stop or control worrying?Several days W orrying too much about different things S everal days T rouble relaxing M ore than half the days B eing so restless that it is hard to sit still N ot at all B ecoming easily annoyed or irritable M ore than half the days F eeling afraid as if something awful might happen N ot at all T otal FOX-7 Score 8 I f you checked any problems, how difficult have they made it for you to do your work, take care of things at home, or get along with other people? S omewhat difficult I nterpretation of Total ( 5 to 9) Mild C [place]-Suicide Severity Rating Scale: Suicide Risk (CSRS-screener) i n the past one month Have you wished you were or wished you could go to sleep and not wake up? N o i n the past one month Have you actually had any thoughts of killing yourself? Y es D epression screening: PHQ-9 L ittle interest or pleasure in doing things?Several days F eeling down, depressed, or hopeless S everal days T rouble falling or staying asleep, or sleeping too much N ot at all F eeling tired or having little energy N early every day P oor appetite or overeating S everal days F eeling bad about yourself or that you are a failure, or have let yourself or your family down M ore than half the days T rouble concentrating on things, such as reading the newspaper or watching television N ot at all M oving or speaking so slowly that other people could have noticed; or the opposite, being so fidgety or restless that you have been moving around a lot more than usual N ot at all T houghts that you would be better off or of hurting yourself in some way N ot at all T otal Score 8 I nterpretation M ild Depression Intervention D epression Screening Findings P ositve F ollow-Up for Depression M ental health care management, Psychiatric follow-up S uicide Risk Assessment Performed _ _ date F unctional Status: Functional Status Assessment D ate of last completed Functional Status Assessment: 1 F all Risk Assessment: O ne fall without injury in the past year * Medical History: Problems: Chronic post-traumatic stress disorder Drug indicated Generalized anxiety disorder 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 The result was 983,300 IU/ml, which is above the reference range. The interpretation of the result is abnormal. The test was performed at [facility] and was reviewed and interpreted by Akira Amaya PHD. Medical History Verified * Surgical History: Any surgical history Other 12/21/2015 Surgical History verified. * Social History: T obacco Use: T obacco Control (Standard) T obacco use: F ormer smoker H ow long has it been since you last smoked??Greater than 10 years M igrated Social History: M igrated Social History: Alcohol Intake: None 05/18/2018,Tobacco Years: Former smoker 02/09/2018,Smoking Status: 45 06/02/2023. M iscellaneous: A dvance Care Planning A re you your own decision-maker Y es D o you have Power of Rn Transfer for Health or Medical? N o A dvance Directive F ULL CODE S ocial History Verified. * Medications: T akingProAir HFA 108 (90 Base) MCG/ACT Aerosol Solution Inhalation LORazepam 2 MG Tablet 1 tablet Oral twice a day Nortriptyline HCl 25 MG Capsule 3 capsules at bedtime Oral Once a day Gabapentin 300 MG Capsule 1 capsule every morning, 2 capsules at bedtime Oral Once a day Taking ProAir HFA 108 (90 Base) MCG/ACT Aerosol Solution Inhalation Taking LORazepam 2 MG Tablet 1 tablet Oral twice a day Taking Nortriptyline HCl 25 MG Capsule 3 capsules at bedtime Oral Once a day Taking Gabapentin 300 MG Capsule 1 capsule every morning, 2 capsules at bedtime Oral Once a day Not-TakingEntresto 24-26 MG Tablet Oral Entresto 24-26 MG Tablet Oral Medication List reviewed and reconciled with the patientNot-Taking Entresto 24-26 MG Tablet Oral Not-Taking Entresto 24-26 MG Tablet Oral Medication List reviewed and reconciled with the patient * Allergies: N .K.D.A.yesAllergies Verified. Objective: * Vitals: B P:129/87mm Hg, HR:100/min, Wt:214lbs, Wt-k.07 kg, Ht: 69.00 in, Ht-cm: 175.26 cm, BMI:31.6Index, Body Surface Area: 2.17. * Examination: P sychiatry: Appearance: w ell-groomed, well-nourished, .... Attention: g ood. Attitude: c ooperative. Suicidal ideation: p ersistent passive thoughts of .? Memory status: n o impairment noted. Degree of awareness of surroundings: w ithin normal limits.? Delusions: n o. Hallucinations: n o. Insight: g ood. Intellectual functioning: n o impairment noted. Judgement: g ood. Orientation: a wake, alert and oriented x 3. Perceptual disorders: n o perceptual disorder noted. Psychomotor activity: w ithin normal range. Speech / language: a ppropriate pitch/modulation, clear and coherent, normal rate, volume, and articulation (RVR), proper grammar used. Thought content: a ppropriate. Thought process: i ntact. Assessment: * Assessment: 1. M ajor depressive disorder, recurrent severe without psychotic features - F33.2 (Primary)? 2. G eneralized anxiety disorder - F41.1 3 . P ost-traumatic stress disorder, chronic - F43.12 Plan: * Treatment: 2. G eneralized anxiety disorder Refill LORazepam Tablet, 2 MG, 1 tablet, Oral, twice a day As needed, 30 days, 60 Tablet, Refills 1; R efill Gabapentin Capsule, 300 MG, 1 capsule every morning, 2 capsules at bedtime, Oral, Once a day, 30 days, 90, Refills 1. 3. P ost-traumatic stress disorder, chronic Notes: supportive care * Procedure Codes: 9 6127 BEHAV ASSMT W/SCORE & DOCD/STAND [id number] TOBACCO NON-USER * Preventive Medicine: Screenings: D epression screening Have you had a recent depression screening? Y es * Follow Up: 4 Weeks (Reason: f/u depression) Billing Information: * Visit Code: 48835 OFFICE OUTPATIENT VISIT 25 MINUTES DETAILED HISTORY AND EXAM/MODERATE MEDICAL DECISION MAKING. * Procedure Codes: 97908 BEHAV ASSMT W/SCORE & DOCD/STAND INSTRUMENT. 1036F TOBACCO NON-USER. * Electronic signature of ELLY Cohen on 03/17/2025 at 06:38 PM FOREST TECHNICIAN Sign off status: Pending * Provider: ELLY MCCULLOUGH Date: Generated for Ravindra mcnulty/Cristal/Boogie on: 1 05/17/2024 06:38 PM FOREST TECHNICIAN
[2025-03-17 11:00] LABS: Hematocrit 45.7 % (42.0-52.0); Hemoglobin 14.5 g/dL (14.0-18.0); Immature Granulocyte Percent A 0.3 % (0-0.5); Lymphocytes Absolute Auto 1.60 K/mm3 (0.9-3.2); Mean Corpuscular HGB Conc 31.7 g/dl (32-36); Mean Corpuscular Hemoglobin 27.9 pg (26-34); Mean Corpuscular Volume 87.9 fl (80-100); Nucleated Red Blood Cells Absolute Auto 0.000 K/mm3 (0.0-0.012); Nucleated Red Blood Cells Perc 0.0 % (0.0-0.2); Platelet Count Result 244 k/mm3 (150-375); Red Blood Count 5.20 M/mm3 (4.6-6.20); White Blood Count 10.0 K/mm3 (4.5-10.0)
[2025-03-17 11:23] LABS: Alanine Aminotransferase 23 U/L (6-50); Albumin Level 4.6 g/dL (3.5-5.1); Alkaline Phosphatase 60 U/L (38-126); Anion Gap 8 mmol/L (4-12); Aspartate Amino Transferase 38 U/L (17-59); Bilirubin,Total 1.1 mg/dL (0.2-1.3); Blood Urea Nitrogen 17 mg/dL (9-20); Calcium 9.1 mg/dL (8.4-10.2); Carbon Dioxide 31 mmol/L (22-30); Chloride 99 mmol/L (98-107); Estimated Glomerular Filt Rate > 60; Glucose 103 mg/dL (65-110); Potassium 4.3 mmol/L (3.4-5.0); Sodium 138 mmol/L (137-145); Total Protein 8.5 g/dL (6.3-8.2)
[2025-03-17 11:29] LABS: Hemoglobin A1C 6.3 % (<5.7)
--- OUTSIDE RECORDS SUMMARY | 2025-03-17 18:38 | XMS_ITS | Clinical Summary ---
Author Organization [facility] Address [address] [place] [address] Care Team Providers Care Target Setter Name Role Phone Luiz Flowers MD Primary Care Provider Source Comments [facility] and Associated [facility]ician Practices is amultiple site organization consisting of ambulatory clinics and hospital sitesin [place], [place], [place] and [place]. This disclosure is being madepursuant to the Care Everywhere program and may not contain all information available regarding this patient. 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 Detection and quantification was successful. COMMENT The Hepatitis C (HCV) viral RNA analysis utilized a serum sample, real-time reverse educational administrator PCR, and is reported as Not Detected/Detected [...] the isolation of HCV RNA with reverse educational administrator of genomic HCV RNA followed by real-time PCR in the presence of a reference standard RNA. The standard ensures that RNA was isolated, that no general significant inhibitors of the RT-PCR process were present. This test was developed and its performance characteristics determined by the [facility] at [facility]. It has not been cleared or [...] complexity clinical laboratory testing. Test performed at [facility], [address] [place], [place] [id number] This case has been personally reviewed and interpreted by the attending (teaching) pathologist. Final Diagnosis performed by Akira Amaya PHD. Electronically signed 02/02/2014(A) [facility]) Blood specimen (specimen) BLOOD SPECIMEN / Unknown 01/31/2014 1:44 PM CDT 01/31/2014 1:50 PM CDT us Jerrod Cox MD LAB - CHEMISTRY ORDERABLES Theresa murray Result [facility] ([facility]) from Last 3 Months or Most Recently Relevant to Health Maintenance [place] [address] [facility] MANAGED MEDICARE ADV Care Teams Target Setter Relationship Specialty Start Date End Date Luiz Flowers MD [address] [place] [address] PCP - General 01/31/14
--- OUTSIDE RECORDS SUMMARY | 2025-03-17 18:38 | XMS_ITS | Patient Health Record ---
Author Organization [facility] [employer] - [employer] global offices Address [address] [place] [address] Care Team Providers Care Clinical Research Spec Name Role Phone Daniel Keyes MD Primary Care Provider Jamir Pennington Unavailable [phone] Allergies No Known Allergies Results Component Value Reference Range Notes UDT Reviewed date:08/27/2024 02:00:43 PM Interpretation: Performing Lab: Notes/Report: Amphetamine (AMP) NEG 0 - 1000 ng/ml Buprenorphine (BUP) NEG 0 - 10 ng/ml Oxazepam (BZO) POS 0 - 300 ng/ml Cocaine (KATHERIN) NEG 0 - 300 ng/ml Methamphetamine (mAMP) NEG 0 - 300 ng/ml Methylenedioxymethamphetamine (MDMA) NEG 0 - 500 ng/ml Morphine (MOP) NEG 0 - 25 ng/ml Methadone (MTD) NEG 0 - 300 ng/ml Oxycodone (OXY) NEG 0 - 300 ng/ml THC POS 0 - 50 ng/ml x NEG 0 - 1000 ng/ml x NEG 0 - 1000 ng/ml x NEG 0 - 300 ng/ml x NEG 0 - 300 ng/ml x NEG [...] MCG/ACT Aerosol Solution Inhalation 09/25/2023 Act davon Immunizations Vaccine Route Administration Date Status Comme [...] unspecified formulation Unknown 02/14/2014 A dministered Novel [id number], preservative free Unknown 02/13/2017 Administered Novel [id number], preservative free Unknown 01/31/2018 Administered Novel [id number], preservative free Unknown 01/19/2020 Administered Pfizer Biontech [...] decision-maker Yes Do you have Power of Designer/Writer for Health or Medi reed? No Advance Directive FULL CODE Tobacco Use: Social Info Question Answer Notes Tobacco Control (Standard) Tobacco use: Former smoker How long has it been since you last smoked? Greater than 10 years Additional Details Category Social Info Options Details Migrated Social History Migrated Social History Alcohol Intake: None 05/18/2018,Tobacco Years: Former smoker 02/09/2018,Smoking Status: 45 06/02/2023 Problems Problem Type SNOMED Code ICD Code Onset Dates Problem Status W/U Status Risk Notes Problem Severe recurrent major depression without psychotic features (16512959) Major depressive disorder, recurrent severe without 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) Active confirmed Problem Generalized anxiety disorder (98745010) Generalized anxiety disorder (F41.1) Active confirmed Problem Posttraumatic stress disorder (70825837) Post-traumatic stress disorder, chronic (F43.12) Active confirmed Vital Signs Heart Rate 100 /min 03/01/2025 Height-cm 175.26 cm 03/01/2025 Blood pressure diastolic 87 mm Hg 03/01/2025 Weight-kg 97.07 kg 03/01/2025 Height 69.00 in 03/01/2025 Blood pressure systolic 129 mm Hg 03/01/2025 Weight 214 lbs 03/01/2025 BMI 31.6 kg/m2 03/01/2025 Encounters Encounter Location Date Provider Diagnosis [facility] [employer] [facility] [address] [facility] [address] [address] 03/01/2025 Jamir Herr Major depressive disorder, recurrent severe without psychotic features F33.2 ; Generalized anxiety disorder F41.1 and Post-traumatic stress disorder, chronic F43.12 [facility] [address] [employer] [facility] [address] [address] 04/15/2024 Jamir Herr Hypertension, unspecified type 401.9 ; Generalized anxiety disorder F41.1 ; Post-traumatic stress disorder, chronic F43.12 and Major depressive disorder, recurrent severe without psychotic features F33.2 [facility] [address] [address] 05/24/2024 Jamir Herr Generalized anxiety disorder F41.1 ; Post-traumatic stress disorder, chronic F43.12 and Major depressive disorder, recurrent severe without psychotic features F33.2 [facility] [address] [address] 06/30/2024 Jamir Herr Generalized anxiety disorder F41.1 ; Post-traumatic stress disorder, chronic F43.12 and Major depressive disorder, recurrent severe without psychotic features F33.2 [employer] [place] [address] [place] [address] 07/28/2024 Jamir Herr Major depressive disorder, recurrent severe without psychotic features F33.2 ; Generalized anxiety disorder F41.1 ; Post-traumatic stress disorder, chronic F43.12 and Encounter for screening for cardiovascular disorders Z13.6 [facility], [place] [address] [facility] [address] [place] [address] 08/27/2024 Jamir Herr Encounter for screen ing for depression Z13.31 ; Encounter for screening for cardiovascular disorders Z13.6 ; Major depressive disorder, recurrent severe without psychotic features F33.2 ; Generalized anxiety disorder F41.1 and Post-traumatic stress disorder, chronic F43.12 [facility], [place] [address] [facility] [address] [place] [address] 09/20/2024 Jamir Herr Encounter for screen ing for cardiovascular disorders Z13.6 ; Encounter for screening for depression Z13.31 ; Major depressive disorder, recurrent severe without psychotic features F33.2 ; Generalized anxiety disorder F41.1 and Post-traumatic stress disorder, chronic F43.12 [facility], [place] [address] [facility] [address] [place] [address] 10/25/2024 Jamir Herr Encounter for screen ing for cardiovascular disorders Z13.6 ; Encounter for screening for depression Z13.31 ; Major depressive disorder, recurrent severe without psychotic features F33.2 ; Generalized anxiety disorder F41.1 and Post-traumatic stress disorder, chronic F43.12 [facility], [place] [address] [facility] [address] [place] [address] 12/01/2024 Jamir Herr Major depressive disorder, recurrent severe without psychotic features F33.2 ; Generalized anxiety disorder F41.1 and Post-traumatic stress disorder, chronic F43.12 [facility] [employer] [place] [address] [place] [address] 12/29/2024 Jamir Herr Major depressive disorder, recurrent severe without psychotic features F33.2 ; Generalized anxiety disorder F41.1 and Post-traumatic stress disorder, chronic F43.12 [facility] [employer] [place] [address] [facility] [address] [place] [address] 02/01/2025 Jamir Herr Major depressive disorder, recurrent severe without psychotic features F33.2 ; Generalized anxiety disorder F41.1 and [facility]-traumatic stress disorder, chronic F43.12 [facility] [address] [place] [address] 03/22/2024 Jamirnathalie Barronoza Generalized anxiety disorder F41.1 [facility] [address] [place] [address] 04/06/2024 Jamir Herr [facility], [facility] [address] [place] [address] 06/30/2024 Jamir Herr [facility], [facility] [address] [place] [address] 11/19/2024 Jamirnathalie Barronoza [facility], [facility] [address] [place] [address] 12/20/2024 Jamirnathalie Barronoza [facility], [facility] [address] [place] [address] 12/24/2024 Jamirnathalie Barronoza [facility], [facility] [address] [facility] [address] [place] [address] 06/21/2024 Jamirnathalie Aguayoa [facility], [facility] [address] [facility] [address] [place] [address] 06/22/2024 Jamir Herr Assessments Encounter Date Diagnosis (ICD Code) Assessment Notes Treatment Notes Treatment Clinical Notes Section Notes 04/15/2024 Hypertension, unspecified type (ICD9-CM - 401.9) [...] screening for cardiovascular disorders (ICD-10 - Z13.6) 12/01/2024 Major depressive disorder, recurrent severe without psychotic features (ICD-10 - F33.2) 12/01/2024 Generalized anxiety disorder (ICD-10 - F41.1) 12/29/2024 Major depressive disorder, recurrent severe without psychotic features (ICD-10 - F33.2) 02/01/2025 Major depressive disorder, recurrent severe without psychotic features (ICD-10 - F33.2) 03/01/2025 Major depressive disorder, recurrent severe without psychotic features (ICD-10 - F33.2) 03/01/2025 Generalized anxiety disorder (ICD-10 - F41.1) 08/27/2024 Encounter for screening for cardiovascular disorders (ICD-10 - Z13.6) 02/01/2025 Generalized anxiety disorder (ICD-10 - F41.1) 12/29/2024 Generalized anxiety disorder (ICD-10 - F41.1) 12/01/2024 Post-traumatic stress disorder, chronic (ICD-10 - F43.12) supportive care 10/25/2024 Encounter for screening for depression (ICD-10 - Z13.31) 09/20/2024 Encounter for screening for depression (ICD-10 [...] progress and adjust treatment plans as needed. 03/22/2024 Generalized anxiety disorder (ICD-10 - F41.1) Electronic Prior Authorization was requested for LORazepam 2 MG Tablet. Provider can order medication once approval received. 04/15/2024 Post-traumatic stress disorder, chronic (ICD-10 - [...] severe without psychotic features (ICD-10 - F33.2) 12/29/2024 Post-traumatic stress disorder, chronic (ICD-10 - F43.12) supportive care 02/01/2025 Post-traumatic stress disorder, chronic (ICD-10 - F43.12) supportive care 03/01/2025 Post-traumatic stress disorder, chronic (ICD-10 - F43.12) supportive care 09/20/2024 Generalized anxiety disorder (ICD-10 - F41.1) [...] to engage in physical therapy or other non-pharmacologic al pain management strategies if pain worsens. 3. [...] arm pain. Plan: - Follow up with sales and merchandising associate as scheduled on November 09 - Complete [...] have been made to correct them. 09/20/2024 Abdulaziz Gaines, male patient, presents with frustration over [...] efforts have been made to correct them. 12/01/2024 Other Buck Gaines with a history of congestive heart failure and depression, presents with persistent depressive symptoms and medication non-adherence. Major Depressive Disorder Assessment: Patient reports no change in depressive symptoms over the past month. He expresses anhedonia and social isolation, stating I don't want to do anything and I just want to leave me in the hell alone. Limited social interactions include weekly visits to [facility] on Sundays and trips to the market every 2-3 days. Patient notes loss of social connections due to deaths of friends. Currently on nortriptyline 25 mg, 3 tablets at bedtime for depression management. Plan: - Continue nortriptyline - Continue lorazepam - Continue gabapentin - [facility] the note is transcribed using speech recognition software. It is a reflection of a visit with the patient. It might have some inaccuracy, including medication names and transcribing errors, though efforts have been made to correct them. 12/29/2024 Other Buck Gaines, a patient with a history of COPD and previous COVID-19 infection, presents with persistent fatigue, irritability, and concerns about medication affecting employment prospects. Mood Disorder Assessment: Patient reports significant fatigue and irritability, expressing frustration with his current state using strong language. These symptoms suggest a possible ongoing mood disorder. The patient's medical conditions, including COPD, may be contributing factors to his mood symptoms. Plan: - Continue lorazepam, nortriptyline, gabapentin - Refill medications for one month as usual the note is transcribed using speech recognition software. It is a reflection of a visit with the patient. It might have some inaccuracy, including medication names and transcribing errors, though efforts have been made to correct them. 02/01/2025 Abdulaziz Gaines, a 69-year-old male, presents with concerns about medication side effects and cost, as well as reports of reduced physical stamina and back pain. Major Depressive Disorder Continue Nortriptyline 25mg 3 capsules at bedtimeeee Generalized Anxiety Disorder Continue Lorazepam 2mg twice daily Continue Gabapentin 300mg-1 capsule in morning, 2 capsules in evening Plan Of Treatment Next Appt Details Provider Name:Jamir ng, 03/29/2025 09:15:00 AM, [address], [place], [address], Insurance Providers Payer Name Payer Address Payer Phone Subscriber Number Group Number Insured Name Patient Relationship to Insured Coverage Start Date Coverage End Date Awilda Jarvis [address] [place] [address] [id number] [employer] Self - patient is the insured 9 Medical (General) History Medical History History ICD Code Problems: Chronic post-traumatic stress disorder Drug indicated Generalized anxiety disorder 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) Test Name: HEPATITIS C RNA QUANTITATIVE PCR Test Result Date: 2014-02-02 08:32:00 Result: The patient underwent a Hepatitis C RT-PCR (Quantitative) test. The result was 983,300 IU/ml, which is above the reference range. The interpretation of the result is abnormal. The test was performed at [facility] and was reviewed and interpreted by Akira Amaya PHD. Surgical History Surgery Date(Month/Year) Any surgical history Other 12/21/2015
--- OUTSIDE RECORDS SUMMARY | 2025-03-17 18:38 | XMS_ITS | Clinical Summary ---
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 Gender Identity Not on file Sexual Orientation [...] 2) 10/30/2023 09/04/2023 Covid-19 Vaccine (7 - 2024-2 6 season) 2025 02/19/2023, 03/08/2022, 10/06/2021, Additional history exists Influenza Vaccine (#1) 2025 3, 03/08/2022, 02/02/2021, Additional history exists Insurance [facility] MEDICARE [facility] Address: [address] [address] [place] [address] [facility] MEDICARE [facility] Address: [address] [address] [place] [address] Care Teams Cell Changer Relationship Specialty Start Date End Date Luiz Flowers MD PCP - General Internal Medicine 09/16/17 Catie Tejada Primary Gas Truck Driver 01/27/25
== END 2025-03-17 10:23 | disposition home or self-care (01) ==
LOC: ANHLAB 10:24
PROVIDERS: PCP Family Medicine; Visit Provider Family Medicine
DX: E11.9 Type 2 diabetes mellitus without complications (principal); E78.2 Mixed hyperlipidemia; I50.9 Heart failure, unspecified; I73.9 Peripheral vascular disease, unspecified; F43.10 Post-traumatic stress disorder, unspecified
CPT/HCPCS: 36415; 80053; 82172; 83036; 85025